=== PATIENT | male | born 1940 | race Caucasian/White ===

== ENCOUNTER 2021-01-09 07:46 | Outpatient (CLI) | payer MEDICARE, SELFPAY ==
--- NOTE | ~2021-01-09 | US_ITS ---
EXAMINATION: US abdomen complete DATE: 01/09/2021 08:38 INDICATION: Cirrhosis of the liver with portal venous hypertension. TECHNIQUE: Multiple grayscale and Doppler ultrasound images of the abdomen were obtained. COMPARISON: Ultrasound 11/04/2018, CT abdomen and pelvis 11/30/2018 FINDINGS: The visualized portions of the head of the pancreas are normal. The liver demonstrates coar sened echotexture and surface nodularity, consistent with cirrhosis. There is normal flow in main por lisa vein. The gallbladder is absent. The common duct is normal and measures 5 mm. The kidneys are nor mal in size. The spleen is normal in size. Abdominal aorta is normal in caliber. The inferior vena ca va is normal. IMPRESSION: 1. Cirrhosis of the liver. Reviewed, dictated and finalized at location B. IMPRESSION: 1. Cirrhosis of the liver.
== END 2021-01-09 07:47 | disposition home or self-care (01) ==
PROVIDERS: Visit Provider Internal Medicine Gastroenterology
DX: K76.6 Portal hypertension (principal); K31.89 Other diseases of stomach and duodenum; K22.2 Esophageal obstruction; K57.30 Diverticulosis of large intestine without perforation or abscess without bleeding; D69.59 Other secondary thrombocytopenia; K74.69 Other cirrhosis of liver; D69.8 Other specified hemorrhagic conditions
CPT/HCPCS: 76700

== ENCOUNTER → 2021-01-16 04:11 | Outpatient (CLI) | payer MEDICARE, SELFPAY ==
[2021-01-16 19:57] LABS: SARS-CoV-2 RNA PCR Negative
== END ==
PROVIDERS: Visit Provider Internal Medicine Gastroenterology
DX: Z01.812 Encounter for preprocedural laboratory examination (principal); Z20.822 Contact with and (suspected) exposure to COVID-19
CPT/HCPCS: C9803; U0003; U0005

== ENCOUNTER 2021-01-19 01:56 | Day surgery (SDC) | payer MEDICARE, SELFPAY ==
[2021-01-12 11:15] VITALS: BMI 28.6
--- NOTE | 2021-01-18 11:44 | WPDANESEPPF ---
Anes - Initial Pre Proc Eval Procedure: Operation Date: 01/19/21 09:00 Proposed Procedures p Esophagogastroduodenoscopy - Ernst Villanueva DO Date/Time: 01/18/21 11:44 Surgeon: Ernst Villanueva DO Pre Op Diagnosis: esophageal stricture Patient Data Age: 80 Gender: M Height: 1.85 m Weight: 98.6 kg Allergies Allergy/AdvReac Type Severity Reaction Status Date / Time No Known Allergies Allergy Unknown Unverified 01/19/21 07:35 Home Medications Medication Instructions Recorded Confirmed Type allopurinol 300 mg PO DAILY 01/12/21 01/19/21 History omeprazole 40 mg PO DAILY 01/12/21 01/19/21 History propranolol 20 mg PO DAILY 01/12/21 01/19/21 History Patient hx anesthesia problems: none Family hx anesthesia problems: none PMFSH Past Medical History Medical History (Updated 01/19/21 @ 08:31 by Ernst Villanueva DO) BPH (benign prostatic hyperplasia) Cirrhosis Esophageal varices GERD (gastroesophageal reflux disease) Gout Hx SBO Hypertension Lung nodule Portal hypertension Skin cancer Thrombocytopenia due to hypersplenism Surgical History Surgical History (Updated 01/19/21 @ 08:31 by Ernst Villanueva DO) H/O colonoscopy H/O esophagogastroduodenoscopy H/O hernia repair Hx laparoscopic cholecystectomy S/P TURP Family History Family History (Updated 11/30/16 @ 11:25 by DOCTOR UNKNOWN) Father Acute myocardial infarction Family history of irritable bowel syndrome Mother Family history of dementia Social History Social History Smoking status: Former smoker Smoking end date: 09/23/72 Alcohol intake: current Substance use type: does not use Living arrangements: with family Gender identity (if verbalized by the patient): Male Anes - Eval Final PreProcedure Day of Procedure 01/18/21 11:44 Patient weight: overweight Heart: regular rate and rhythm Lungs: clear to auscultation and normal air movement Airway: Mallampati scale class II Neurological: alert and oriented Last oral intake: >/= 8 hours ASA classification: III Emergent: no Anesthetic plan: proceed Anesthesia type and monitoring: general GIVS and standard monitoring Informed Consent: The patient's anesthetic plan and its attendant risks and benefits were discussed with the patient/family/POA. Questions were solicited and answers provided to the satisfaction of the patient/family/POA.
[2021-01-19 07:39] VITALS: BP 129/77; PULSE 62; RESP 18; TEMP 36.4; O2SAT 98
[2021-01-19] MEDS: LACTATED RINGERS 1,000 ML 150 ML IV CONT (07:49)
[2021-01-19 08:31] LABS: Hemoglobin 13.8 g/dL (14.0-18.0); Immature Platelet Fraction Pct 4.3 % (0.9-11.2); Mean Corpuscular HGB Conc 33.7 g/dl (32-36); Mean Corpuscular Hemoglobin 31.8 pg (26-34); Mean Corpuscular Volume 94.5 fl (80-100); Mean Platelet Volume 11.3 fl (7.4-10.4); Platelet Count Result 97 k/mm3 (150-375); Red Blood Count 4.34 M/mm3 (4.6-6.20); Red Cell Distribution Width 14.5 % (11.5-14.5); White Blood Count 6.9 K/mm3 (4.5-10.0)
--- NOTE | 2021-01-19 08:33 | WPDGICN ---
GI Consult Note Consult date/time: 01/19/21 08:33 Reason for visit is EGD. This very pleasant gentleman's here at the request the primary physician. Impression: He removed gentleman with history of cirrhosis. He has complicating factors: Esophageal varices and portal hypertension. 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 GERD. History duodenal ulcer disease. BPH. Gout. Skin cancer. Recommendation: EGD. History: This very pleasant gentleman history of cirrhosis. This most likely due to underlying cryptogenic factors. He has multiple complicating factors mentioned above. The patient has a history duodenal ulcer disease and cirrhosis. He is here for EGD to assess the need for any type of esophageal variceal ligation. General: very pleasant patient in no acute distress. HEENT: Head was normocephalic sclerae is clear mouth without masses neck was supple. Heart: Rate rhythm regular without S3 or S4. Lungs: CTA. Abdomen: Soft with no guarding or rigidity. Bowel sounds were active. Neurologic: Cranial nerves 2 through 12 intact. No focal defects. No clonus. Musculoskeletal system: Revealed no joint tenderness or swelling no muscle atrophy. Extremities: Reveal no significant edema. Skin: Warm and dry with normal turgor. Mental status: intact. Patient is alert and oriented. Review of Systems Review of Systems: All systems reviewed & are unremarkable except as noted in HPI and below PMFSH Past Medical History Medical History (Updated 01/19/21 @ 08:34 by Ernst Villanueva DO) BPH (benign prostatic hyperplasia) Cirrhosis Duodenal ulcer Esophageal varices GERD (gastroesophageal reflux disease) Gout Hx SBO Hypertension Lung nodule Portal hypertension Skin cancer Thrombocytopenia due to hypersplenism Surgical History Surgical History (Updated 01/19/21 @ 08:33 by Ernst Villanueva DO) H/O colonoscopy H/O esophagogastroduodenoscopy H/O hernia repair History of bowel resection Hx laparoscopic cholecystectomy Hx of appendectomy S/P TURP Family History Family History (Updated 11/30/16 @ 11:25 by DOCTOR UNKNOWN) Father Acute myocardial infarction Family history of irritable bowel syndrome Mother Family history of dementia Social History Social History Smoking status: Former smoker Smoking end date: 09/23/72 Alcohol intake: current Substance use type: does not use Living arrangements: with family Gender identity (if verbalized by the patient): Male Meds Home Medications and Allergies Home Medications Medication Instructions Recorded Confirmed Type allopurinol 300 mg PO DAILY 01/12/21 01/19/21 History omeprazole 40 mg PO DAILY 01/12/21 01/19/21 History propranolol 20 mg PO DAILY 01/12/21 01/19/21 History Allergies Allergy/AdvReac Type Severity Reaction Status Date / Time No Known Allergies Allergy Unknown Unverified 01/19/21 07:35 Vital Signs Vital Signs - 24 hr 01/19/21 07:39 Temperature 36.4 C L Pulse Rate 62 Respiratory Rate 18 Blood Pressure 129/77 Pulse Oximetry 98 Results Labs CBC & Chem 7: 01/19/21 08:22 01/19/21 08:21 Labs: Short CBC 01/19/21 Range/Units 08:22 WBC 6.9 (4.5-10.0) K/mm3 Hgb 13.8 L (14.0-18.0) g/dL Hct 41.0 L (42.0-52.0) % Plt Count 97 L (150-375) k/mm3
[2021-01-19 08:39] LABS: Alanine Aminotransferase 43 U/L (4-50); Albumin Level 2.8 g/dL (3.5-5.1); Alkaline Phosphatase 199 U/L (38-126); Anion Gap 5 mmol/L (8-16); Aspartate Amino Transferase 87 U/L (17-59); Bilirubin,Total 2.1 mg/dL (0.2-1.3); Blood Urea Nitrogen 12 mg/dL (9-20); Calcium 8.4 mg/dL (8.4-10.2); Carbon Dioxide 25 mmol/L (22-30); Chloride 111 mmol/L (98-107); Estimated CRCL calculation 85 ml/min; Estimated Glomerular Filt Rate > 60; Glucose 105 mg/dL (75-110); Potassium 3.9 mmol/L (3.4-5.0); Sodium 141 mmol/L (137-145)
[2021-01-19 08:41] LABS: INR 1.5; Prothrombin Time 18.3 Seconds (11.1-14.7)
[2021-01-19] MEDS: BENZOCAINE (*SP) 60 ML SPRAY CAN (HURRICAINE) 1 SPRAY MUCOUS MEM (08:47)
--- NOTE | 2021-01-19 08:57 | SUR.OPER ---
Handupband Lot: [id number] Exp: 2021-05-23
[2021-01-19 09:07] VITALS: BP 100/60; PULSE 71; RESP 17; O2SAT 100
[2021-01-19 09:17] VITALS: BP 105/59; PULSE 65; RESP 19; O2SAT 97
[2021-01-19 09:27] VITALS: BP 105/54; PULSE 63; RESP 22; O2SAT 99
[2021-01-24 15:31] LABS: Alpha Fetoprotein Tumor Marker 5.6 ng/mL (<6.1)
== END 2021-01-19 09:45 | disposition home or self-care (01) ==
PROVIDERS: Visit Provider Internal Medicine Gastroenterology
PROC: 0DJ08ZZ Inspection of Upper Intestinal Tract, Via Natural or Artificial Opening Endoscopic (ICD-10-PCS; CPT 43235; principal; 2021-01-19 09:00)
DX: K22.2 Esophageal obstruction (principal); K44.9 Diaphragmatic hernia without obstruction or gangrene; K76.6 Portal hypertension; K31.89 Other diseases of stomach and duodenum; I85.00 Esophageal varices without bleeding; Z86.010 Personal history of colon polyps; K74.69 Other cirrhosis of liver; K57.30 Diverticulosis of large intestine without perforation or abscess without bleeding; Z87.11 Personal history of peptic ulcer disease; D69.59 Other secondary thrombocytopenia; N40.0 Benign prostatic hyperplasia without lower urinary tract symptoms; Z85.828 Personal history of other malignant neoplasm of skin; Z87.442 Personal history of urinary calculi; R91.8 Other nonspecific abnormal finding of lung field; E53.8 Deficiency of other specified B group vitamins
CPT/HCPCS: 43244; 36415; 80048; 80076; 82105; 85027; 85055; 85610; J2704; J7120

== ENCOUNTER → 2021-02-13 03:27 | Outpatient (CLI) | payer MEDICARE, SELFPAY ==
[2021-02-15 12:49] LABS: SARS-CoV-2 RNA PCR Negative
== END ==
PROVIDERS: Visit Provider Internal Medicine Gastroenterology
DX: Z01.812 Encounter for preprocedural laboratory examination (principal); Z20.822 Contact with and (suspected) exposure to COVID-19
CPT/HCPCS: C9803; U0003; U0005

== ENCOUNTER 2021-02-16 00:27 | Day surgery (SDC) | payer MEDICARE, SELFPAY ==
[2021-02-07 10:54] VITALS: BMI 28.6
--- NOTE | 2021-02-16 08:27 | WPDHPUPDATE1 ---
History and Physical Update Update Date/Time: 02/16/21 08:27 History and Physical has been reviewed, including an updated exam of the patient. There are NO changes in the patient's condition. Risks, benefits, and alternatives have been discussed and questions answered. Patient agrees to proceed with procedure.
[2021-02-16 08:28] VITALS: BP 128/78; PULSE 70; RESP 18; TEMP 36.5; O2SAT 95; BMI 29.2
[2021-02-16] MEDS: LACTATED RINGERS 1,000 ML 150 ML IV CONT (08:35)
--- NOTE | 2021-02-16 08:56 | WPDANESEPPF ---
Anes - Initial Pre Proc Eval Procedure: Operation Date: 02/16/21 09:30 Proposed Procedures p Esophagogastroduodenoscopy - Ernst Villanueva DO Date/Time: 02/16/21 08:56 Surgeon: Ernst Villanueva DO Pre Op Diagnosis: esophageal varices Patient Data Age: 80 Gender: M Height: 6 ft 1 in Weight: 100.5 kg Last Vital Signs Temp 97.7 F 02/16/21 08:28 Pulse 70 02/16/21 08:28 Resp 18 02/16/21 08:28 BP 128/78 02/16/21 08:28 Pulse Ox 95 02/16/21 08:28 Allergies Allergy/AdvReac Type Severity Reaction Status Date / Time No Known Allergies Allergy Unknown Verified 02/16/21 08:27 Home Medications Medication Instructions Recorded Confirmed Type allopurinol 300 mg PO DAILY 01/12/21 02/16/21 History omeprazole 40 mg PO DAILY 01/12/21 02/16/21 History propranolol 20 mg PO DAILY 01/12/21 02/16/21 History Patient hx anesthesia problems: none Family hx anesthesia problems: none PMFSH Past Medical History Medical History (Updated 01/19/21 @ 09:04 by Ernst Villanueva DO) Adenomatous colon polyp BPH (benign prostatic hyperplasia) Cirrhosis Coagulopathy Diverticulitis Duodenal ulcer Esophageal stricture Esophageal varices GERD (gastroesophageal reflux disease) Gout [place] (hard of hearing) Hx SBO Hypertension Kidney stones Lung nodule Portal hypertension Portal hypertensive gastropathy Skin cancer Thrombocytopenia due to hypersplenism Vitamin B 12 deficiency Surgical History Surgical History (Updated 01/19/21 @ 08:33 by Ernst Villanueva DO) H/O colonoscopy H/O esophagogastroduodenoscopy H/O hernia repair History of bowel resection Hx laparoscopic cholecystectomy Hx of appendectomy S/P TURP Family History Family History (Updated 11/30/16 @ 11:25 by DOCTOR UNKNOWN) Father Acute myocardial infarction Family history of irritable bowel syndrome Mother Family history of dementia Social History Social History Smoking status: Former smoker Tobacco type: cigarettes Smoking end date: 09/23/72 Alcohol intake: never Substance use: never Substance use type: does not use Living arrangements: with family Gender identity (if verbalized by the patient): Male Spiritual care concerns: No Anes - Eval Final PreProcedure Day of Procedure 02/16/21 08:56 Patient weight: overweight Heart: regular rate and rhythm Lungs: clear to auscultation Airway: Mallampati scale class II Neurological: alert and oriented Last oral intake: >/= 8 hours ASA classification: III Emergent: no Anesthetic plan: proceed Anesthesia type and monitoring: general GIVS and standard monitoring Informed Consent: The patient's anesthetic plan and its attendant risks and benefits were discussed with the patient/family/POA. Questions were solicited and answers provided to the satisfaction of the patient/family/POA.
[2021-02-16 09:14] VITALS: BP 96/62; PULSE 71; RESP 23; O2SAT 95
[2021-02-16 09:24] VITALS: BP 104/62; PULSE 66; RESP 20; O2SAT 95
[2021-02-16 09:34] VITALS: BP 111/69; PULSE 63; RESP 20; O2SAT 96
== END 2021-02-16 09:54 | disposition home or self-care (01) ==
PROVIDERS: Visit Provider Internal Medicine Gastroenterology
PROC: 0DJ08ZZ Inspection of Upper Intestinal Tract, Via Natural or Artificial Opening Endoscopic (ICD-10-PCS; CPT 43235; principal; 2021-02-16 09:30)
DX: K74.60 Unspecified cirrhosis of liver (principal); I85.10 Secondary esophageal varices without bleeding; K76.6 Portal hypertension; K21.9 Gastro-esophageal reflux disease without esophagitis; K31.89 Other diseases of stomach and duodenum; K44.9 Diaphragmatic hernia without obstruction or gangrene; D69.59 Other secondary thrombocytopenia; D73.1 Hypersplenism; N40.0 Benign prostatic hyperplasia without lower urinary tract symptoms; M10.9 Gout, unspecified; Z87.11 Personal history of peptic ulcer disease; Z90.49 Acquired absence of other specified parts of digestive tract; Z87.891 Personal history of nicotine dependence
CPT/HCPCS: 43235; J2704; J7120

== ENCOUNTER 2021-05-02 11:02 | Emergency (ER) | payer MEDICARE, SELFPAY ==
--- NOTE | ~2021-05-02 | CT_ITS ---
EXAMINATION: CT abdomen pelvis w con DATE: 05/02/2021 14:38 INDICATION: Left lower quadrant abdominal pain. TECHNIQUE: Computed tomography (CT) of the abdomen and pelvis was performed with 100 mL Omnipaque 350 intravenous contrast. Automated exposure control and iterative reconstruction technique were employe d. The dose-length product was 1091.62 mGy-cm. COMPARISON: CT abdomen and pelvis 05/06/2018 FINDINGS: The visualized portions of the lung bases demonstrate mild atelectasis. No pleural effusion . The heart size is normal. There are coronary artery calcifications. No pericardial effusion. The li aleksander demonstrates surface nodularity, consistent with cirrhosis. There is a paraumbilical portacaval s benedict. There is mild splenomegaly. The gallbladder is absent. The pancreas, adrenal glands, and kidney s are normal. There is a supraumbilical ventral hernia containing fat. The prostate is mildly enlarge d. There are likely changes of transurethral resection of the prostate. There is prominent fat in the right inguinal canal that may be a hernia. There is diverticulosis of the colon without evidence of diverticulitis. There are no dilated loops of bowel. There is wall thickening of some loops of bowel, consistent with interstitial edema. There is edema of the intra-abdominal fat. The appendix is not v isualized. There is a moderate volume of ascites. There is mild periportal lymphadenopathy. There is severe lumbar spondylosis. IMPRESSION: 1. Cirrhosis of the liver with portal venous hypertension. 2. Moderate volume of ascites. 3. Mild periportal lymphadenopathy, likely reactive. 4. Supraumbilical ventral hernia containing fat. Reviewed, dictated and finalized at location A.
--- NOTE | ~2021-05-02 | US_ITS ---
EXAMINATION: US scrotum doppler DATE: 05/02/2021 11:50 INDICATION: Left testicle swelling. TECHNIQUE: Grayscale and Doppler ultrasound images of the testes were obtained. COMPARISON: None. FINDINGS: The right testis measures 3.3 x 2.8 x 2.2 cm. The left testis measures 3.0 x 2.5 x 2.0 cm. There is a 10 mm cyst in left testis. At the surface of the left testis, there is a 7 mm hypoechoic m ass, likely the appendix testis. There is normal vascular flow to both testes. The right epididymis i s normal with normal vascular flow. The left epididymis is enlarged with heterogeneous echogenicity a nd increased vascularity. There is a small loculated left hydrocele. There is diffuse skin thickening of the scrotum. IMPRESSION: 1. Left-sided epididymitis. 2. Small loculated left hydrocele. Reviewed, dictated and finalized at location A.
[2021-05-02 11:10] VITALS: BP 121/76; PULSE 78; RESP 16; TEMP 36.3; O2SAT 97
--- NOTE | 2021-05-02 13:15 | ED.ABDPAIN ---
HPI - Abdominal Pain General Chief Complaint: Urogenital-Male Stated Complaint: groin pain Time Seen by Provider: 05/02/21 13:06 Source: patient and RN notes reviewed Mode of arrival: ambulatory Limitations: no limitations History of Present Illness HPI narrative: 80 years old white male presents with left lower quadrant pain and left testicular pain and swelling started 3 days ago. Patient denies any trauma or any sexual activities. Patient denies any fever, chills, nausea, vomiting, urinary symptoms. Related Data Home Medications Medication Instructions Recorded Confirmed allopurinol 300 mg PO DAILY 01/12/21 02/16/21 omeprazole 40 mg PO DAILY 01/12/21 02/16/21 propranolol 20 mg PO DAILY 01/12/21 02/16/21 Allergies Allergy/AdvReac Type Severity Reaction Status Date / Time No Known Allergies Allergy Unknown Verified 02/16/21 08:27 Review of Systems Review of Systems: CONSTITUTIONAL: Denies fever, chills, or sweats. EYES: Denies visual changes, redness, or discharge. ENT: Denies rhinorrhea, congestion, sore throat, or otalgia. CARDIOVASCULAR: Denies chest pain, palpitations, or edema. RESPIRATORY: Denies cough or dyspnea. GASTROINTESTINAL: Denies abdominal pain, nausea, vomiting, or diarrhea. GENITOURINARY: Denies dysuria or hematuria. SKIN: Denies rash or itching. MUSCULOSKELETAL: Denies back pain, joint pain, or myalgia. NEUROLOGIC: Denies headache, numbness, or weakness. PSYCHIATRIC: Denies anxiety or depression. [facility] Past Medical History Medical History Adenomatous colon polyp BPH (benign prostatic hyperplasia) Cirrhosis Coagulopathy Diverticulitis Duodenal ulcer Esophageal stricture Esophageal varices GERD (gastroesophageal reflux disease) Gout [place] (hard of hearing) Hx SBO Hypertension Kidney stones Lung nodule Portal hypertension Portal hypertensive gastropathy Skin cancer Thrombocytopenia due to hypersplenism Vitamin B 12 deficiency Surgical History Surgical History H/O colonoscopy H/O esophagogastroduodenoscopy H/O hernia repair History of bowel resection Hx laparoscopic cholecystectomy Hx of appendectomy S/P TURP Family History Family History Father Acute myocardial infarction Family history of irritable bowel syndrome Mother Family history of dementia Social History Social History Smoking status: Former smoker Tobacco type: cigarettes Smoking end date: 09/23/72 Alcohol intake: never Substance use: never Substance use type: does not use Gender identity (if verbalized by the patient): Male Spiritual care concerns: No Exam Narrative: General appearance: Well-developed, well-nourished Skin: Normal color Head: Normocephalic, nontraumatic Eyes: Yellow discoloration of the conjunctival ENT: Oropharynx normal, ears normal, nose normal Neck: Supple, nontender Chest and respiratory: Airway patent, no respiratory distress, no accessory muscle use Heart: Regular rate/rhythm Abdomen: Soft, moderate tenderness left lower quadrant, no organomegaly, quiet bowel sounds Vascular: Normal peripheral pulses, normal capillary refill. Musculoskeletal: Normal range of motion, nontender back Neurologic: Alert and oriented ?3, RE[employer]ISH[employer]IST is normal as tested, no gross motor deficit Course Course Emergency Course: Stable Vital Signs Vital signs: Vital Signs Temperature 36.3 C L 05/02/21 11:10 Pulse Rate 78 05/02/21 11:10 Respiratory Rate 16 05/02/21 11:10 Blood Pressure 121/76 05/02/21
[2021-05-02 13:37] VITALS: BP 124/66; PULSE 82; RESP 18; O2SAT 100
[2021-05-02] MEDS: SODIUM CHLORIDE 0.9% IV 1,000 ML 999 ML IV CONT (13:39)
[2021-05-02 13:51] LABS: Basophils Percent Auto 0.4 % (0.2-1.2); Eosinophils Absolute Auto 0.2 K/mm3 (0-0.3); Eosinophils Percent Auto 2.4 % (0-4.4); Hematocrit 36.3 % (42.0-52.0); Hemoglobin 12.2 g/dL (14.0-18.0); Immature Granulocyte Absolute 0.03 K/mm3 (0.00-0.031); Immature Granulocyte Percent A 0.4 % (0-0.5); Immature Platelet Fraction Pct 4.1 % (0.9-11.2); Lymphocytes Absolute Auto 1.99 K/mm3 (0.9-3.2); Lymphocytes Percent Auto 24.2 % (18.3-44.2); Mean Corpuscular HGB Conc 33.6 g/dl (32-36); Mean Corpuscular Hemoglobin 32.4 pg (26-34); Mean Corpuscular Volume 96.5 fl (80-100); Mean Platelet Volume 10.7 fl (7.4-10.4); Monocytes Absolute Auto 1.1 K/mm3 (0.1-0.6); Monocytes Percent Auto 13.7 % (2.6-8.5); Neutrophils Absolute Auto 4.9 K/mm3 (1.3-6.7); Neutrophils Percent Auto 58.9 % (45.5-73.1); Platelet Count Result 116 k/mm3 (150-375); Red Blood Count 3.76 M/mm3 (4.6-6.20); Red Cell Distribution Width 14.3 % (11.5-14.5); White Blood Count 8.2 K/mm3 (4.5-10.0)
[2021-05-02 13:55] LABS: Add Urine Microscopic? YES; Appearance Urine Clear (Clear); Bilirubin Urine Negative (Negative); Blood Urine Negative (Negative); Color Urine Amber (Yellow); Glucose Urine UA Negative (Negative); Ketones Urine Negative (Negative); Leukocyte Esterase Ur 1+ LEU/UL (Negative); Nitrate Urine Negative (Negative); Protein Urine Negative (Negative); RBC Urine 0-2 /hpf (0-2); Specific Grav Ur 1.014 (1.001-1.035); WBC Urine 21-30 /hpf
[2021-05-02 14:01] LABS: Alanine Aminotransferase 42 U/L (4-50); Albumin Level 2.7 g/dL (3.5-5.1); Alkaline Phosphatase 120 U/L (38-126); Anion Gap 6 mmol/L (8-16); Aspartate Amino Transferase 82 U/L (17-59); Bilirubin,Total 2.3 mg/dL (0.2-1.3); Blood Urea Nitrogen 9 mg/dL (9-20); Calcium 8.3 mg/dL (8.4-10.2); Carbon Dioxide 24 mmol/L (22-30); Chloride 103 mmol/L (98-107); Estimated CRCL calculation 75 ml/min; Estimated Glomerular Filt Rate > 60; Glucose 96 mg/dL (65-110); Lipase 83 U/L (23-300); Potassium 3.7 mmol/L (3.4-5.0); Sodium 133 mmol/L (137-145)
[2021-05-02 16:40] VITALS: BP 128/76; PULSE 85; RESP 18; O2SAT 100
== END 2021-05-02 16:43 | disposition home or self-care (01) ==
PROVIDERS: Emergency Provider Emergency Medicine
DX: N45.1 Epididymitis (principal); N39.0 Urinary tract infection, site not specified; K74.60 Unspecified cirrhosis of liver; R18.8 Other ascites; K76.6 Portal hypertension; I10 Essential (primary) hypertension; Z87.891 Personal history of nicotine dependence
CPT/HCPCS: 36415; 74177; 76870; 80053; 81001; 83690; 85025; 85055; 87077; 87086; 87088; 87186; 93976; 96360; 99284; J7030; Q9967

== ENCOUNTER 2021-06-08 00:56 | Day surgery (SDC) | payer MEDICARE, SELFPAY ==
[2021-05-31 13:33] VITALS: BMI 28.8
--- NOTE | 2021-06-07 19:34 | P.HP_ITS ---
History of Present Illness History of Present Illness Consent: Risks, benefits, and alternatives have been discussed and questions answered. Patient agrees to proceed with procedure. Chief complaint: esophageal varices Narrative: Minh Nielsen is a 80 year old male with cirrhosis and varices, here for assessment and possible treatment of varices Review of Systems Review of Systems: All systems reviewed & are unremarkable except as noted in HPI and below PMFSH Past Medical History Medical History Adenomatous colon polyp BPH (benign prostatic hyperplasia) Cirrhosis Coagulopathy Diverticulitis Duodenal ulcer Esophageal stricture Esophageal varices GERD (gastroesophageal reflux disease) Gout [place] (hard of hearing) Hx SBO Hypertension Kidney stones Lung nodule Portal hypertension Portal hypertensive gastropathy Skin cancer Thrombocytopenia due to hypersplenism Vitamin B 12 deficiency Surgical History Surgical History H/O colonoscopy H/O esophagogastroduodenoscopy H/O hernia repair History of bowel resection Hx laparoscopic cholecystectomy Hx of appendectomy S/P TURP Family History Family History Father Acute myocardial infarction Family history of irritable bowel syndrome Mother Family history of dementia Social History Social History Smoking status: Former smoker Tobacco type: cigarettes Smoking end date: 09/23/72 Alcohol intake: never Substance use: never Substance use type: does not use Gender identity (if verbalized by the patient): Male Spiritual care concerns: No Meds Home Medications and Allergies Home Medications Medication Instructions Recorded Confirmed Type allopurinol 300 mg PO DAILY 01/12/21 05/31/21 History omeprazole 40 mg PO DAILY 01/12/21 05/31/21 History propranolol 20 mg PO DAILY 01/12/21 05/31/21 History levofloxacin 500 mg PO DAILY #10 tablet 05/02/21 05/31/21 Rx spironolactone 50 mg tablet 50 mg PO BID #60 tablet 05/23/21 05/31/21 Rx Allergies Allergy/AdvReac Type Severity Reaction Status Date / Time No Known Allergies Allergy Unknown Verified 06/08/21 09:56 Exam Const: General: alert Orientation/consciousness: patient oriented x3 Resp: Auscultation: clear to auscultation bilaterally Cardio: Rhythm: regular rhythm GI: GI Palp: Yes Soft to palpation and No Tenderness to palpation present (GI) Neuro: General: patient oriented x3 Assessment and Plan Assessment and plan (1) Esophageal varices: Code(s): I85.00 - Esophageal varices without bleeding Status: Acute Assessment and Plan: EGD with possible biopsy or dilatation or cautery or banding of varices.
--- NOTE | 2021-06-08 08:28 | WPDANESEPPF ---
Anes - Initial Pre Proc Eval Procedure: Operation Date: 06/08/21 11:00 Proposed Procedures p Esophagogastroduodenoscopy - Remington Elam MD Date/Time: 06/08/21 08:28 Surgeon: Remington Elam MD Pre Op Diagnosis: esophageal varices Patient Data Age: 80 Gender: M Height: 1.85 m Weight: 99 kg Allergies Allergy/AdvReac Type Severity Reaction Status Date / Time No Known Allergies Allergy Unknown Verified 05/31/21 13:30 Home Medications Medication Instructions Recorded Confirmed Type allopurinol 300 mg PO DAILY 01/12/21 05/31/21 History omeprazole 40 mg PO DAILY 01/12/21 05/31/21 History propranolol 20 mg PO DAILY 01/12/21 05/31/21 History levofloxacin 500 mg PO DAILY #10 tablet 05/02/21 05/31/21 Rx spironolactone 50 mg tablet 50 mg PO BID #60 tablet 05/23/21 05/31/21 Rx Patient hx anesthesia problems: none Family hx anesthesia problems: none PMFSH Past Medical History Medical History Adenomatous colon polyp BPH (benign prostatic hyperplasia) Cirrhosis Coagulopathy Diverticulitis Duodenal ulcer Esophageal stricture Esophageal varices GERD (gastroesophageal reflux disease) Gout [place] (hard of hearing) Hx SBO Hypertension Kidney stones Lung nodule Portal hypertension Portal hypertensive gastropathy Skin cancer Thrombocytopenia due to hypersplenism Vitamin B 12 deficiency Surgical History Surgical History H/O colonoscopy H/O esophagogastroduodenoscopy H/O hernia repair History of bowel resection Hx laparoscopic cholecystectomy Hx of appendectomy S/P TURP Family History Family History Father Acute myocardial infarction Family history of irritable bowel syndrome Mother Family history of dementia Social History Social History Smoking status: Former smoker Tobacco type: cigarettes Smoking end date: 09/23/72 Alcohol intake: never Substance use: never Substance use type: does not use Gender identity (if verbalized by the patient): Male Spiritual care concerns: No Anes - Eval Final PreProcedure Day of Procedure 06/08/21 08:28 Patient weight: overweight Heart: regular rate and rhythm Lungs: clear to auscultation and normal air movement Airway: Mallampati scale class II Neurological: alert and oriented Last oral intake: >/= 8 hours ASA classification: IV Emergent: no Anesthetic plan: proceed Anesthesia type and monitoring: general GIVS Informed Consent: The patient's anesthetic plan and its attendant risks and benefits were discussed with the patient/family/POA. Questions were solicited and answers provided to the satisfaction of the patient/family/POA.
[2021-06-08 09:57] VITALS: BP 128/63; PULSE 64; RESP 18; TEMP 36.7; O2SAT 100; BMI 29.8
[2021-06-08] MEDS: LACTATED RINGERS 1,000 ML 150 ML IV CONT (10:08)
--- NOTE | 2021-06-08 10:56 | SUR.OPER ---
Speedband Lot: [id number] Exp: 2022-04-14
[2021-06-08 10:57] VITALS: BP 86/54; PULSE 70; RESP 19; O2SAT 98
[2021-06-08 11:07] VITALS: BP 94/58; PULSE 68; RESP 24; O2SAT 98
[2021-06-08 11:17] VITALS: BP 101/63; PULSE 62; RESP 17; O2SAT 98
== END 2021-06-08 11:45 | disposition home or self-care (01) ==
PROVIDERS: Visit Provider Internal Medicine Gastroenterology
PROC: 0DJ08ZZ Inspection of Upper Intestinal Tract, Via Natural or Artificial Opening Endoscopic (ICD-10-PCS; CPT 43235; principal; 2021-06-08 11:00)
DX: I85.00 Esophageal varices without bleeding (principal); K29.70 Gastritis, unspecified, without bleeding; K74.60 Unspecified cirrhosis of liver; K21.9 Gastro-esophageal reflux disease without esophagitis; I10 Essential (primary) hypertension; K76.6 Portal hypertension; K31.89 Other diseases of stomach and duodenum; D73.1 Hypersplenism; E53.8 Deficiency of other specified B group vitamins; M10.9 Gout, unspecified; N40.0 Benign prostatic hyperplasia without lower urinary tract symptoms; Z87.891 Personal history of nicotine dependence
CPT/HCPCS: 43244; J2001; J2370; J2704; J7120

== ENCOUNTER 2021-11-16 00:22 | Day surgery (SDC) | payer MEDICARE, SELFPAY ==
[2021-11-02 15:18] VITALS: BMI 28.5
--- NOTE | 2021-11-15 10:59 | SUR.PREOP ---
11/15/21 1050 spoke with patient via the phone. called patient to move his time up. Patient is going to call his Son who is the one bringing him. He thought he would be able to arrive at 10 tomorrow morning. Patient mentioned that he is having some swelling and harder time breathing and that he would address it with Dr. Gillis in the morning. I did tell the patient that Dr. Gillis would probably not address those issues since he deals with the stomach and colon and that he needs to contact his primary doctor to address these concerns. Patient stated [place] at [place] today and that his primary doctor was at the [place] in [place]. I did re-enforce to contact his primary or go the the nearest ED if it got worse.
--- NOTE | 2021-11-15 18:59 | PM.HPGS ---
History of Present Illness History of Present Illness Consent: Risks, benefits, and alternatives have been discussed and questions answered. Patient agrees to proceed with procedure. Chief complaint: esophageal varices Narrative: Minh Nielsen is a 80 year old male with cirrhosis and a history of esophaggeal varices, previously banded by Dr. Villanueva (4 bands last December) and one by me 4 months ago. Lately he has been becoming short of breath. He has had a great deal swelling in his legs and also in his abdomen. He states that he has an appointment for his annual checkup with his doctor at the [facility] but later admitted that he never in fact has made an appointment Review of Systems Review of Systems: All systems reviewed & are unremarkable except as noted in HPI and below PMFSH Past Medical History Medical History Adenomatous colon polyp BPH (benign prostatic hyperplasia) Cirrhosis Coagulopathy Diverticulitis Duodenal ulcer Esophageal stricture Esophageal varices GERD (gastroesophageal reflux disease) Gout [place] (hard of hearing) Hx SBO Hypertension Kidney stones Lung nodule Portal hypertension Portal hypertensive gastropathy Skin cancer Thrombocytopenia due to hypersplenism Vitamin B 12 deficiency Surgical History Surgical History H/O colonoscopy H/O esophagogastroduodenoscopy H/O hernia repair History of bowel resection Hx laparoscopic cholecystectomy Hx of appendectomy S/P TURP Family History Family History Father Acute myocardial infarction Family history of irritable bowel syndrome Mother Family history of dementia Social History Social History Smoking status: Former smoker Tobacco type: cigarettes Smoking end date: 09/23/72 Alcohol intake: never Substance use: never Substance use type: does not use Living arrangements: with family Gender identity (if verbalized by the patient): Male Spiritual care concerns: No Meds Home Medications and Allergies Home Medications Medication Instructions Recorded Confirmed Type allopurinol 300 mg PO DAILY 01/12/21 11/02/21 History omeprazole 40 mg PO DAILY 01/12/21 11/02/21 History propranolol 20 mg PO DAILY 01/12/21 11/02/21 History spironolactone 50 mg tablet 50 mg PO BID #60 tablet 05/23/21 11/02/21 Rx Allergies Allergy/AdvReac Type Severity Reaction Status Date / Time No Known Allergies Allergy Unknown Verified 11/16/21 10:17 Exam Const: General: alert Orientation/consciousness: patient oriented x3 Resp: Auscultation: clear to auscultation bilaterally Cardio: Rhythm: regular rhythm GI: GI Palp: Yes Soft to palpation and No Tenderness to palpation present (GI) Neuro: General: patient oriented x3 Assessment and Plan Assessment and plan (1) Esophageal varices: Code(s): I85.00 - Esophageal varices without bleeding Status: Acute Assessment and Plan: EGD with possible biopsy or dilatation or cautery.
[2021-11-16 10:18] VITALS: BP 111/74; PULSE 81; RESP 19; TEMP 36.5; O2SAT 100
[2021-11-16] MEDS: LACTATED RINGERS 1,000 ML 150 ML IV CONT (10:31)
--- NOTE | 2021-11-16 10:35 | WPDANESEPPF ---
Anes - Initial Pre Proc Eval Procedure: Operation Date: 11/16/21 11:30 Proposed Procedures p Esophagogastroduodenoscopy - Remington Elam MD Date/Time: 11/16/21 10:35 Surgeon: Remington Elam MD Pre Op Diagnosis: esophageal varices Patient Data Age: 80 Gender: M Height: 1.85 m Weight: 100.4 kg Last Vital Signs Temp 36.5 C 11/16/21 10:18 Pulse 81 11/16/21 10:18 Resp 19 11/16/21 10:18 BP 111/74 11/16/21 10:18 Pulse Ox 100 11/16/21 10:18 Allergies Allergy/AdvReac Type Severity Reaction Status Date / Time No Known Allergies Allergy Unknown Verified 11/16/21 10:17 Home Medications Medication Instructions Recorded Confirmed Type allopurinol 300 mg PO DAILY 01/12/21 11/02/21 History omeprazole 40 mg PO DAILY 01/12/21 11/02/21 History propranolol 20 mg PO DAILY 01/12/21 11/02/21 History spironolactone 50 mg tablet 50 mg PO BID #60 tablet 05/23/21 11/02/21 Rx Patient hx anesthesia problems: none Family hx anesthesia problems: none Results Review: All pre-operative results and documents have been reviewed as part of the pre-operative evaluation. [facility] Past Medical History Medical History Adenomatous colon polyp BPH (benign prostatic hyperplasia) Cirrhosis Coagulopathy Diverticulitis Duodenal ulcer Esophageal stricture Esophageal varices GERD (gastroesophageal reflux disease) Gout [place] (hard of hearing) Hx SBO Hypertension Kidney stones Lung nodule Portal hypertension Portal hypertensive gastropathy Skin cancer Thrombocytopenia due to hypersplenism Vitamin B 12 deficiency Surgical History Surgical History H/O colonoscopy H/O esophagogastroduodenoscopy H/O hernia repair History of bowel resection Hx laparoscopic cholecystectomy Hx of appendectomy S/P TURP Family History Family History Father Acute myocardial infarction Family history of irritable bowel syndrome Mother Family history of dementia Social History Social History Smoking status: Former smoker Tobacco type: cigarettes Smoking end date: 09/23/72 Alcohol intake: never Substance use: never Substance use type: does not use Living arrangements: with family Gender identity (if verbalized by the patient): Male Spiritual care concerns: No Anes - Eval Final PreProcedure Day of Procedure 11/16/21 10:35 Patient weight: overweight Heart: regular rate and rhythm Lungs: decreased breath sounds Airway: Mallampati scale class II Neurological: other (alert) Last oral intake: >/= 8 hours ASA classification: IV Emergent: no Anesthetic plan: proceed Anesthesia type and monitoring: general GIVS and standard monitoring Results Review: All pre-operative results and documents have been reviewed as part of the pre-operative evaluation. Informed Consent: The patient's anesthetic plan and its attendant risks and benefits were discussed with the patient/family/POA. Questions were solicited and answers provided to the satisfaction of the patient/family/POA.
[2021-11-16] MEDS: BENZOCAINE (*SP) 60 ML SPRAY CAN (HURRICAINE) 1 SPRAY MUCOUS MEM (11:37)
[2021-11-16 11:44] VITALS: BP 93/60; PULSE 73; RESP 18; O2SAT 97
[2021-11-16 11:54] VITALS: BP 102/65; PULSE 70; RESP 17; O2SAT 99
[2021-11-16 12:04] VITALS: BP 119/71; PULSE 68; RESP 16; O2SAT 100
== END 2021-11-16 12:12 | disposition home or self-care (01) ==
PROVIDERS: Visit Provider Internal Medicine Gastroenterology
PROC: 0DJ08ZZ Inspection of Upper Intestinal Tract, Via Natural or Artificial Opening Endoscopic (ICD-10-PCS; CPT 43235; principal; 2021-11-16 11:30)
DX: I85.00 Esophageal varices without bleeding (principal); K22.2 Esophageal obstruction; K44.9 Diaphragmatic hernia without obstruction or gangrene; K74.60 Unspecified cirrhosis of liver; K21.9 Gastro-esophageal reflux disease without esophagitis; I10 Essential (primary) hypertension; K76.6 Portal hypertension; K31.89 Other diseases of stomach and duodenum; E53.8 Deficiency of other specified B group vitamins; N40.0 Benign prostatic hyperplasia without lower urinary tract symptoms; M10.9 Gout, unspecified; Z87.891 Personal history of nicotine dependence
CPT/HCPCS: 43235; J2704; J7120

== ENCOUNTER 2021-12-12 15:10 | Inpatient (IN) | payer MEDICARE, OTHER, SELFPAY ==
[2021-12-12] VITALS (7 sets, daily range): BP systolic 96–103; BP diastolic 54–70; PULSE 64–78; RESP 16–18; TEMP 36.1–36.5; O2SAT 95–100; BMI 28.9
--- NOTE | ~2021-12-12 | US_ITS ---
US right upper quadrant INDICATION: Portal hypertension. PROCEDURE: Realtime right upper abdominal ultrasound. COMPARISON: No prior studies for comparison. FINDINGS: The pancreas is not well visualized, although grossly unremarkable. There is cirrhosis of the liver with moderate ascites. There is normal directional flow in the portal vein, although it i s difficult to visualized. Gallbladder is surgically absent. Common bile duct measures 3 mm. No sonographic Madrid's sign. IMPRESSION: 1: Cirrhosis of the liver with moderate ascites. Limited flow in the portal vein, although there is d irectional flow. 2: Cirrhosis of the liver. Reviewed, dictated and finalized at location A. IMPRESSION: 1: Cirrhosis of the liver with moderate ascites. Limited flow in the portal vei n, although there is directional flow. 2: Cirrhosis of the liver.
--- NOTE | ~2021-12-12 | US_ITS ---
EXAMINATION:US venous doppler LE BI INDICATION:Lower extremity edema TECHNIQUE: Multiple grayscale, color flow and Doppler images of the right and left lower extremity de ep venous systems were obtained and reviewed. COMPARISON:No prior studies for comparison. FINDINGS: The common femoral, superficial femoral and popliteal veins demonstrate normal respiratory variation, augmentation and compressibility. Color flow is also seen within the posterior tibial, pe roneal, greater saphenous and profunda veins. IMPRESSION: 1: No lower extremity deep venous thrombosis. Reviewed, dictated and finalized at location A.
--- NOTE | ~2021-12-12 | XR_ITS ---
EXAMINATION: XR chest 1V portable DATE: 12/19/2021 05:54 INDICATION: Pneumonia TECHNIQUE: frontal view of the chest was obtained. COMPARISON: Chest radiograph dated 12/12/21 FINDINGS: Opacities in the bilateral lower lung zones with blunting at the costophrenic angles. No pneumothorax . Small calcified nodules in the left midlung zone. The cardiomediastinal silhouette is normal. IMPRESSION: 1. Small bilateral pleural effusions with associated atelectasis and/or pneumonia. Reviewed, dictated and finalized at location A. IMPRESSION: 1. Small bilateral pleural effusions with associated atelectasis and/or pneumon ia.
--- NOTE | ~2021-12-12 | US_ITS ---
EXAMINATION: US paracentesis abd w/image DATE: 12/17/2021 13:37 INDICATION: Ascites and shortness of breath TECHNIQUE: The procedure and its risks and benefits were discussed with the patient. Potential risks discussed included bleeding and infection. The skin was prepped and draped in sterile fashion. 1% lid ocaine was used for local anesthesia. Under ultrasound guidance, a 5 Fr catheter with trochar was adv anced into the ascites in the left lower quadrant. Fluid was aspirated into vacuum bottles. The silverio ter was removed, and a dressing was applied. There were no immediate complications. FINDINGS: Ultrasound images demonstrate ascites and the catheter within the fluid. IMPRESSION: 1. Successful ultrasound-guided paracentesis yielding 1475 mL of cloudy yellowish fluid. Reviewed, dictated and finalized at location A. IMPRESSION: 1. Successful ultrasound-guided paracentesis yielding 1475 mL of cloudy yellow romeo fluid.
--- NOTE | ~2021-12-12 | CT_ITS ---
EXAMINATION: CT abdomen pelvis w con EXAM DATE: 12/12/2021 17:25 INDICATION: liver cirrhosis, elevated bili, elevated lactic ac. TECHNIQUE: Spiral CT of the abdomen and pelvis was performed following intravenous injection of 100 m L Omnipaque 350. Axial, coronal and sagittal images of the abdomen and pelvis were reviewed. The do se-length product (DLP) for this examination was 1161.73 mGy-cm. The exposure was tailored according to patient size (auto mA exposure control), and iterative reconstruction (ASIR) was used as addition al dose reduction technique. Comparison is made to prior examination from 05/02/2021. FINDINGS: The liver is atrophic with nodular contour, cirrhosis. There is moderate 2 large amount of ascites. Portal hypertension with multiple mesenteric varices and periumbilical varices. There is sup raumbilical fat-containing hernia containing omental fat and varices. No mesenteric arterial or venou s thrombosis demonstrated. No focal liver mass. Adrenal glands and pancreas are unremarkable. Gallbla dder not identified, patient likely has had cholecystectomy. Portal and splenic veins are patent. K idneys enhance symmetrically. There is no hydronephrosis. The uterus is not identified and has lik james been surgically resected. Prostatectomy or TURP. The bladder is unremarkable. There is no retro peritoneal or pelvic lymphadenopathy. There are no findings to suggest appendicitis. The stomach and small bowel are unremarkable. There is expected amount of colonic stool. There is moderate scattered colonic diverticulosis. Sensitivity for diverticulitis limited from the ascites and mesenteric fat stranding. No free intraperitoneal gas . The heart is normal in size. There are no pericardial or pleural effusions. There is right lower lobe endobronchial debris and air space disease most consistent with subsegmenta l pneumonia. Moderate to severe thoracolumbar spondylosis. There are no osteoblastic or osteolytic le sions identified. There is ankylosis of the sacroiliac joints. IMPRESSION: 1. Right lower lobe posterior segmental endobronchial debris and opacity most likely subsegmental pn eumonia. 2. Cirrhosis, portal hypertension. 3. Moderate to large amount of ascites. 4. Moderate-sized supra umbilical hernia containing omentum and varicosities. 5. Moderate scattered colonic diverticulosis. Reviewed, dictated and finalized at location G. IMPRESSION: 1. Right lower lobe posterior segmental endobronchial debris and opacity most likely subsegmental pneumonia. 2. Cirrhosis, portal hypertension. 3. Moderate to large amount of ascites. 4. Moderate-sized supra umbilical hernia containing omentum and varicosities. 5. Moderate scattered colonic diverticulosis.
--- NOTE | ~2021-12-12 | US_ITS ---
EXAMINATION: US paracentesis abd w/image DATE: 12/13/2021 11:51 INDICATION: Ascites. TECHNIQUE: The procedure and its risks and benefits were discussed with the patient. Potential risks discussed included bleeding and infection. The skin was prepped and draped in sterile fashion. 1% lid ocaine was used for local anesthesia. Under ultrasound guidance, a 5 Fr catheter with trochar was adv anced into the ascites in the right lower quadrant. Fluid was aspirated into vacuum bottles. The cath eter was removed, and a dressing was applied. There were no immediate complications. FINDINGS: Ultrasound images demonstrate ascites and the catheter within the fluid. IMPRESSION: 1. Successful ultrasound-guided paracentesis yielding 3100 mL of cloudy yellow fluid. Reviewed, dictated and finalized at location A.
--- NOTE | ~2021-12-12 | XR_ITS ---
EXAMINATION: XR chest 2V EXAM DATE: 12/12/2021 16:42 INDICATION: Dyspnea. TECHNIQUE: Frontal and lateral projections of the chest obtained and reviewed. Comparison is made to prior examination from 11/30/18. FINDINGS: Small amount of bibasilar subsegmental atelectasis. Left midlung zone granuloma unchanged. The lungs are otherwise clear. There are no pleural effusions. The cardiomediastinal silhouette is within normal limits. There is no pneumothorax suspected. The bones and soft tissues are unremarka ble. IMPRESSION: Small amount of bibasilar linear opacity likely subsegmental atelectasis. Reviewed, dictated and finalized at location G. IMPRESSION: Small amount of bibasilar linear opacity likely subsegmental atelec tasis.
--- NOTE | 2021-12-12 15:55 | ECG_ITS ---
Measurements Intervals [place] Rate: 64 P: 72 DE: 160 QRS: 12 QRSD: 90 T: 34 QT: 433 QTc: 449 Interpretive Statements SINUS RHYTHM LOW QRS VOLTAGE IN PRECORDIAL LEADS [QRS DEFLECTION < 1.0 mV IN CHEST LEADS] POSSIBLE ANTERIOR MYOCARDIAL INFARCTION , PROBABLY OLD [30 ms Q WAVE IN V3/V4, OR R < 0.2 mV IN V4] NONSPECIFIC T-WAVE ABNORMALITY ABNORMAL ECG Electronically Signed On 12-13-2021 13:51:32 CDT by Gil Foley M.D.
--- NOTE | 2021-12-12 15:55 | ED.GENADULT ---
HPI - General Adult General Chief complaint: Unspecified Stated complaint: PCP referral Time Seen by Provider: 12/12/21 15:41 History of Present Illness HPI narrative: 81 y/o male presents to the ER for general decline over the past several months. He has lung disease related to asbestos and he has liver cirrhosis. His son says that they took him for his visit at the [facility] yesterday and the provider felt that he looked poorly compared to the last time they saw him 6 months ago. They recommended that he go to the ER to get evaluated and admitted to the hospital. He had appt with his liver docter, Dr. Elam, today so he wanted to wait and get seen by him first. Dr. Elam also saw him and felt like he looked worse than when he saw him for his endoscopy a month ago. He has increased swelling in his legs. He felt that he looked a little jaundice so he agreed that patient should be evaluated in the ER. The son is reporting that he has had worsening problems with shortness of breath with exertion and is having a harder time getting around. Pt denies having any pain symptoms. No n/v/d. Son reports that he has had blood in his stools off and on over the past few weeks. Related Data Home Medications Medication Instructions Recorded Confirmed allopurinol 300 mg PO DAILY 01/12/21 12/12/21 omeprazole 40 mg PO DAILY 01/12/21 12/12/21 propranolol 20 mg PO DAILY 01/12/21 12/12/21 Allergies Allergy/AdvReac Type Severity Reaction Status Date / Time No Known Allergies Allergy Unknown Verified 12/12/21 13:26 Review of Systems Constitutional: Constitutional: Reports lethargy and Reports weakness Eyes: Eyes: Denies blurry vision ENT: Denies dizziness, Denies epistaxis and Denies neck pain Cardiovascular: Cardiovascular: Denies chest pain and Reports leg edema Respiratory: Respiratory: Denies chest congestion, Denies cough, Reports hemoptysis and Reports dyspnea Gastrointestinal: Gastrointestinal: Reports as per HPI, Denies abdominal pain, Denies change in bowel habits and Denies change in stool character Genitourinary: Genitourinary: Reports no additional male genitourinary complaints Musculoskeletal: Musculoskeletal: Reports no additional musculoskeletal complaints Integumentary/Breasts: Skin/Breast: Reports skin swelling Neurologic: Denies vertigo, Denies dizziness, Denies frequent falls and Denies focal weakness Psychiatric: Psychiatric: Reports no additional psychiatric complaints Endocrine: Endocrine: Reports no additional endocrine complaints Hematologic/Lymphatic: Hematologic/Lymphatic: Reports easy bleeding PMFSH Past Medical History Medical History Adenomatous colon polyp BPH (benign prostatic hyperplasia) Cirrhosis Coagulopathy Diverticulitis Duodenal ulcer Esophageal stricture Esophageal varices GERD (gastroesophageal reflux disease) Gout [place] (hard of hearing) Hx SBO Hypertension Kidney stones Lung nodule Portal hypertension Portal hypertensive gastropathy Skin cancer Thrombocytopenia due to hypersplenism Vitamin B 12 deficiency Surgical History Surgical History H/O colonoscopy H/O esophagogastroduodenoscopy H/O hernia repair History of bowel resection Hx laparoscopic cholecystectomy Hx of appendectomy S/P TURP Family History Family History Father Acute myocardial infarction Family history of irritable bowel syndrome Mother Family history of dementia Social History Social History Smoking status: Former smoker Tobacco type: cigarettes Smoking end date: 09/23/72 Alcohol intake: never Substance use: never Substance use type: does not use Gender identity (if verbalized by the patient): Male Spiritual care concerns: No Exam Const: General: cooperati
[2021-12-12 16:50] LABS: INR 1.8; Prothrombin Time 20.2 Seconds (11.1-14.7)
[2021-12-12 16:51] LABS: Partial Thromboplastin Time 43.9 SECONDS (22.3-36.8)
[2021-12-12 16:53] LABS: Basophils Percent Auto 0.3 % (0.2-1.2); Eosinophils Absolute Auto 0.1 K/mm3 (0-0.3); Hematocrit 37.4 % (42.0-52.0); Hemoglobin 12.8 g/dL (14.0-18.0); Immature Granulocyte Absolute 0.13 K/mm3 (0.00-0.031); Lymphocytes Absolute Auto 1.71 K/mm3 (0.9-3.2); Lymphocytes Percent Auto 13.7 % (18.3-44.2); Mean Corpuscular HGB Conc 34.2 g/dl (32-36); Mean Corpuscular Hemoglobin 34.1 pg (26-34); Mean Corpuscular Volume 99.7 fl (80-100); Mean Platelet Volume 10.5 fl (7.4-10.4); Monocytes Absolute Auto 1.5 K/mm3 (0.1-0.6); Monocytes Percent Auto 11.9 % (2.6-8.5); Neutrophils Percent Auto 72.1 % (45.5-73.1); Platelet Count Result 153 k/mm3 (150-375); Red Blood Count 3.75 M/mm3 (4.6-6.20); Red Cell Distribution Width 16.4 % (11.5-14.5); White Blood Count 12.5 K/mm3 (4.5-10.0)
[2021-12-12 16:54] LABS: Alanine Aminotransferase 46 U/L (4-50); Albumin Level 2.4 g/dL (3.5-5.1); Alkaline Phosphatase 158 U/L (38-126); Anion Gap 7 mmol/L (8-16); Aspartate Amino Transferase 78 U/L (17-59); Bilirubin,Total 4.4 mg/dL (0.2-1.3); Blood Urea Nitrogen 18 mg/dL (9-20); Calcium 8.3 mg/dL (8.4-10.2); Carbon Dioxide 26 mmol/L (22-30); Chloride 98 mmol/L (98-107); Estimated Glomerular Filt Rate 58; Glucose 109 mg/dL (65-110); Lipase 126 U/L (23-300); Potassium 4.1 mmol/L (3.4-5.0); Sodium 131 mmol/L (137-145)
[2021-12-12 16:55] LABS: Lactic Acid Reflex 3.4 mmol/L (0.7-2.1)
[2021-12-12 17:11] LABS: Ammonia 45 umol/L (9-30)
[2021-12-12 17:13] LABS: Add Urine Microscopic? YES; Appearance Urine Clear (Clear); Bilirubin Urine Negative (Negative); Blood Urine Negative (Negative); Color Urine Amber (Yellow); Glucose Urine UA Negative (Negative); Hyaline Casts Urine 30-49 /lpf; Ketones Urine Negative (Negative); Leukocyte Esterase Ur Negative LEU/UL (Negative); Mucus Urine Rare /lpf; Nitrate Urine Negative (Negative); Protein Urine Negative (Negative); RBC Urine 0-2 /hpf (0-2); Specific Grav Ur 1.018 (1.001-1.035); Squamous Epithelial Cell Urine Rare /hpf (Few); WBC Urine 0-3 /hpf
[2021-12-12 17:15] LABS: NT Pro B Type Natriuretic Pept 352 pg/mL (5-100); Troponin I 0.013 ng/mL (0.000-0.034)
[2021-12-12] MEDS: SODIUM CHLORIDE 0.9% IV 1,000 ML 500 ML IV CONT (19:13)
[2021-12-12 19:30] LABS: Reflex Lactic Acid Yes or No Add Lactic
[2021-12-12 20:45] LABS: Lactic Acid 3.1 mmol/L (0.7-2.1)
--- NOTE | 2021-12-12 21:05 | ADMGEN ---
This patient, Minh Nielsen, was admitted to IMU Room 211-01. Patient/family oriented to hospital policies and general routines including ID bracelet, bed and alarms, visiting hours, pain management, procedures, bathroom and other care routines, personal items, smoking policy, room service/diet, and visiting hours. Information on how to activate the Rapid Response Team has been discussed. Patient/Family are encouraged to report perceived risks to care and to ask questions if they do not understand what they are told or what they should do.
--- NOTE | 2021-12-12 22:05 | PM.IMHP ---
H&P: HPI History of Present Illness Date/Time: 12/12/21 22:05 Chief Complaint: Generalized weakness Narrative: This is a 81-year-old male who presents to the ED after being referred by Dr. Elam who he saw this afternoon. He was sent over for overall generalize health decline over the past few months. He had been to be yesterday and was referred to the ER the decline in came to see Dr. Rendon today. He reports he has been fatigued in generally weak overall which is not new but have been slowly declining. Denies any fever chills or abdominal pain. He reports he always has swelling in his legs and his abdomen. He never had abdominal tap done. Dr. Lima had done EGD for variceal surveillance a month ago and revealed only small versus that required no banding. He had last banding done in May 2021. He lives by himself but his son lives close by. He has worsening shortness of breath son reported is been harder to get him around BT. There is no associated nausea vomiting. He does report loss of appetite. Denies having any diarrhea or constipation. In the ED he was noted to have hypotension on arrival and for which he was given 500 cc of normal saline. He has mild leukocytosis at 12 okay. Chest x-ray showed subsegmental atelectasis. CT abdomen and pelvis was done which revealed worsening ascites also noted small area of pneumonia in right basal lung field. His blood pressure has improved however remains soft. His lactic acid was also elevated on admission at 3.4. His lipase is normal and urinalysis showed 30-49 hyaline cast. He is getting admitted in this setting for further evaluation and management. Review of Systems Review of Systems: - CONSTITUTIONAL: Denies weight loss, fever and chills. - HEENT: Denies changes in vision and hearing - RESPIRATORY: Denies SOB and cough. Reports shortness of breath on exertion - CV: Denies palpitations and CP. - GI: Denies abdominal pain, nausea, vomiting and diarrhea. - : Denies dysuria and urinary frequency. - MSK: Denies myalgia and joint pain. - SKIN: Denies rash and pruritus. - NEUROLOGICAL: Denies headache and syncope. - PSYCHIATRIC: Denies recent changes in mood. Denies anxiety and depression. All systems reviewed & are unremarkable except as noted in HPI and below Constitutional: Constitutional: Reports fatigue and Reports weakness Neurologic: Reports weakness Endocrine: Endocrine: Reports fatigue PMFSH Past Medical History Medical History Adenomatous colon polyp BPH (benign prostatic hyperplasia) Cirrhosis Coagulopathy Diverticulitis Duodenal ulcer Esophageal stricture Esophageal varices GERD (gastroesophageal reflux disease) Gout [place] (hard of hearing) Hx SBO Hypertension Kidney stones Lung nodule Portal hypertension Portal hypertensive gastropathy Skin cancer Thrombocytopenia due to hypersplenism Vitamin B 12 deficiency Surgical History Surgical History H/O colonoscopy H/O esophagogastroduodenoscopy H/O hernia repair History of bowel resection Hx laparoscopic cholecystectomy Hx of appendectomy S/P TURP Family History Family History Father Acute myocardial infarction Family history of irritable bowel syndrome Mother Family history of dementia Social History Social History Smoking status: Unknown if ever smoked Tobacco type: cigarettes Smoking end date: 09/23/72 Alcohol intake: never Substance use: never Substance use type: does not use Gender identity (if verbalized by the patient): Male Spiritual care concerns: No Meds Home Medications and Allergies Home Medications Medication Instructions Recorded Confirmed Type allopurinol 300 mg PO DAILY 01/12/21 12/12/21 History omeprazo
[2021-12-12] MEDS: ALBUMIN HUMAN 25% 25 GM/100 ML 100 ML IVPB (23:34)
[2021-12-13] VITALS (14 sets, daily range): BP systolic 91–98; BP diastolic 45–64; PULSE 63–83; RESP 14–20; TEMP 36.4–36.8; O2SAT 95–98
--- NOTE | 2021-12-13 | ECHO_ITS ---
Patient Info Name: Minh Nielsen Age: 81 years : 1940 Gender: Male Ht: 72 in Wt: 213 lbs BSA: 2.23 m2 HR: 64 bpm BP: 91 / 62 mmHg Heart Rhythm: Sinus Rhythm Technical Quality: Fair Exam Date: 12/13/2021 6:47 AM Exam Location: [facility] Patient Status: Outpatient Admit Date: 12/12/2021 Staff Ordering Physician: Georges Manzano MD Auto Dealer: Rema Tobias RDCS Attending Provider: Georges Manzano MD Exam Type: CA echo doppler color flow Study Info Indications - Shortness of breath Complete two-dimensional, color flow and Doppler transthoracic echocardiogram is performed. Summary 1. Complete two-dimensional, color flow and Doppler transthoracic echocardiogram is performed. 2. Left ventricular chamber dimension is normal. 3. Left ventricular systolic function is normal, estimated at 60-65%. 4. There is mildly increased left ventricular wall thickness. 5. The left ventricular diastolic function is normal. 6. Right ventricular chamber dimension is mildly enlarged. 7. Left atrial chamber dimension is moderately enlarged. 8. Right atrial chamber dimension is mildly enlarged. 9. There is mild aortic valve regurgitation. 10. There is mild mitral valve regurgitation. 11. There is mild tricuspid valve regurgitation. 12. Mild pulmonary hypertension, estimated pulmonary arterial systolic pressure is 38 mmHg. 13. There is small pericardial effusion. 14. The prox ascending aorta size is mildly dilated. Left Ventricle Left ventricular chamber dimension is normal. Left ventricular systolic function is normal, estimated at 60-65%. There is mildly increased left ventricular wall thickness. The left ventricular diastolic function is normal. Right Ventricle Right ventricular chamber dimension is mildly enlarged. Right ventricular systolic function is normal. Left Atria Left atrial chamber dimension is moderately enlarged. Right Atria Right atrial chamber dimension is mildly enlarged. Atrial Septum Intact interatrial septum visualized by color flow imaging. Aortic Valve The aortic valve is trileaflet. There is mild aortic valve sclerosis. There is no aortic valve stenosis. There is mild aortic valve regurgitation. Pulmonic Valve The pulmonic valve is normal. There is no pulmonic valve stenosis. There is trace pulmonic regurgitation. Mitral Valve The mitral valve has normal leaflets. There is no mitral valve stenosis. There is mild mitral valve regurgitation. Tricuspid Valve The tricuspid valve leaflets are normal. There is no significant tricuspid valve stenosis. There is mild tricuspid valve regurgitation. Mild pulmonary hypertension, estimated pulmonary arterial systolic pressure is 38 mmHg. Pericardium/Pleural The pericardium appears normal. There is small pericardial effusion. Inferior Vena Cava Normal inferior vena cava with >50% collapse upon inspiration consistent with normal right atrial pressure, 10 mmHg. Aorta The aortic root size at the sinus of Valsalva is normal. The prox ascending aorta size is mildly dilated. Left Ventricular Outflow Tract Name Value Normal LVOT 2D LVOT Diameter 2.1 cm LV
[2021-12-13 05:33] LABS: Ammonia < 9 umol/L (9-30)
[2021-12-13 05:36] LABS: Alanine Aminotransferase 34 U/L (4-50); Albumin Level 2.3 g/dL (3.5-5.1); Alkaline Phosphatase 114 U/L (38-126); Anion Gap 5 mmol/L (8-16); Aspartate Amino Transferase 67 U/L (17-59); Bilirubin,Total 4.6 mg/dL (0.2-1.3); Blood Urea Nitrogen 18 mg/dL (9-20); Calcium 8.1 mg/dL (8.4-10.2); Carbon Dioxide 24 mmol/L (22-30); Chloride 102 mmol/L (98-107); Estimated CRCL calculation 64 ml/min; Estimated Glomerular Filt Rate > 60; Glucose 85 mg/dL (65-110); Potassium 4.6 mmol/L (3.4-5.0); Sodium 131 mmol/L (137-145)
[2021-12-13] MEDS: ALBUMIN HUMAN 25% 25 GM/100 ML 100 ML IVPB ×3 (05:50→17:58)
--- NOTE | 2021-12-13 07:16 | WPDGICN ---
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 There is not a history of excessive alcohol use or hepatitis B or C. He has been previously investigated by Dr. juárez. (2) Hypotension: Code(s): I95.9 - Hypotension, unspecified Status: Acute Assessment and Plan: Blood pressure in the office was 78/56. He was also hypotensive on presentation to the emergency room. He was given a fluid bolus of 500 mL normal saline. There was a delicate balance between using diuretics to control his ascites and edema verses his blood pressure. He is now receiving albumin which should help in that regard. (3) Dehydration: Code(s): E86.0 - Dehydration Status: Acute Assessment and Plan: blood pressure was low on arrival and yesterday in the office. After fluid bolus his pressure is better. (4) Esophageal varices: Code(s): I85.00 - Esophageal varices without bleeding Status: Acute Assessment and Plan: he has been on propanolol but we will hold that today until we are sure that his blood pressure is not soft after paracentesis (5) Ascites: Qualifiers: Ascites type: other type Qualified Code(s): R18.8 - Other ascites Code(s): R18.8 - Other ascites Status: Acute Assessment and Plan: I had started him on furosemide 40 mg daily in addition to spironolactone 100 mg per day. In the past year his weight has fluctuated between 98 and 102 kg, mostly around 100 kg. The 102 kg was last May today his weight is 92.7 kg despite his weight loss, he still has significant ascites and marked extremity edema. He had not yet had a paracentesis. Insurance was slow to give approval and he actually had been scheduled to have paracentesis next week as an outpatient. I discussed this with Madi dejesus over, he will have diagnostic paracentesis this morning. (6) Pneumonia: Qualifiers: Laterality: unspecified laterality Lung location: lower lobe of lung Pneumonia type: due to unspecified organism Qualified Code(s): J18.9 - Pneumonia, unspecified organism Code(s): J18.9 - Pneumonia, unspecified organism Status: Acute Assessment and Plan: bilateral linear changes in bases of both lungs, possible pneumonia . Antibiotics have been started GI Consult Note Consult date/time: 12/13/21 07:16 HPI: Minh Nielsen is a 81 year old male who has been known to have cirrhosis for the last couple of years. 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 He was seen by his primary care physician at the [facility] in [facility] yesterday. He was supposed to have blood work drawn but the doctor said it would be better for him to go down to the emergency room and be admitted because he did not look good. He declined and decided he would come here to see me today. I had performed an EGD on him several months ago and found grade 3 esophageal varices. they were banded. He came in for repeat exam last month and varices were nearly gone. He has been taking propanolol 20 mg per day. He also suffers from ascites which is somewhat refractory. I started him on spironolactone and Lasix. this has resulted in him losing about 12 lb in the last couple of months but the son states that his legs are as swollen as ever. today, He was found to be hypotensive and his son asked if I could admit him overnight. I explained him that he Each should go into the emergency room because of his hypotension and dehydration. He also appears more jaundiced than I have noticed in the past Review of Systems Review of Systems: All systems reviewed & are unremarkable except as noted in HPI and below [facility] Past Medical History Medical History (Updated 12/13/21 @ 08
[2021-12-13 07:49] LABS: Basophils Percent Auto 0.4 % (0.2-1.2); Eosinophils Absolute Auto 0.2 K/mm3 (0-0.3); Eosinophils Percent Auto 2.1 % (0-4.4); Hematocrit 29.9 % (42.0-52.0); Hemoglobin 10.8 g/dL (14.0-18.0); Immature Granulocyte Absolute 0.07 K/mm3 (0.00-0.031); Lymphocytes Absolute Auto 1.48 K/mm3 (0.9-3.2); Lymphocytes Percent Auto 20.2 % (18.3-44.2); Mean Corpuscular HGB Conc 36.1 g/dl (32-36); Mean Corpuscular Hemoglobin 35.3 pg (26-34); Mean Corpuscular Volume 97.7 fl (80-100); Mean Platelet Volume 10.9 fl (7.4-10.4); Monocytes Percent Auto 13.5 % (2.6-8.5); Neutrophils Absolute Auto 4.6 K/mm3 (1.3-6.7); Neutrophils Percent Auto 62.8 % (45.5-73.1); Platelet Count Result 92 k/mm3 (150-375); Red Blood Count 3.06 M/mm3 (4.6-6.20); Red Cell Distribution Width 16.2 % (11.5-14.5); White Blood Count 7.3 K/mm3 (4.5-10.0)
[2021-12-13 07:56] LABS: INR 2.1; Prothrombin Time 22.7 Seconds (11.1-14.7)
[2021-12-13 07:57] LABS: Partial Thromboplastin Time 45.6 SECONDS (22.3-36.8)
[2021-12-13] MEDS: allopurinoL 300 MG TABLET PO (09:04)
[2021-12-13] MEDS: PANTOPRAZOLE 40 MG TABLET PO ×2 (09:04→17:57)
--- NOTE | 2021-12-13 09:52 | PCOTNOTE ---
Attempted OT evaluation, patient is currently off the unit for testing, will follow and attempt at later time.
--- NOTE | 2021-12-13 13:30 | P.PNIM_ITS ---
Progress Note: A&P Assessment and Plan (1) Pneumonia: Qualifiers: Laterality: unspecified laterality Lung location: lower lobe of lung Pneumonia type: due to unspecified organism Qualified Code(s): J18.9 - Pneumonia, unspecified organism Code(s): J18.9 - Pneumonia, unspecified organism Status: Acute Assessment and Plan: * Chest xray shows Small amount of bibasilar linear opacity likely subsegmental atelectasis. * CT shows Right lower lobe posterior segmental endobronchial debris and opacity most likely subsegmental pneumonia. * WBC is slightly elevated at 12.5 upon admission, Current WBC is 7.3 * Continue ceftriaxone and azithromycin * Sputum culture ordered * Blood culture pending * Trend labs * Adjust therapy as indicated (2) Hyperbilirubinemia: Code(s): E80.6 - Other disorders of bilirubin metabolism Status: Acute Assessment and Plan: * Bilirubin elevated at 4.6 today * Secondary to the cirrhosis * Probably causing him the jaundice * Ammonia was elevated on arrival * Given lactulose in the ED * Continue to trend (3) Chronic liver disease and cirrhosis: Code(s): K74.60 - Unspecified cirrhosis of liver; K76.9 - Liver disease, unspecified Status: Acute Assessment and Plan: * CT showed cirrhosis with portal hypertension * AFP pending * Cryptogenic cirrhosis * no history of alcohol or hepatitis * Coagulopathy monitor INR * GI consulted thank you for your help (4) Edema: Qualifiers: Edema type: localized Qualified Code(s): R60.0 - Localized edema Code(s): R60.9 - Edema, unspecified Status: Acute Assessment and Plan: * Lower extremity edema 4+ * venous duplex however likely due to lying cirrhosis * Echo EF 60-65%, normal diastolic dysfunction * Does not look to be due to heart failure (5) Hypotension: Code(s): I95.9 - Hypotension, unspecified Status: Acute Assessment and Plan: * BP noted 78/56 in the ED * Current BP is 91/62 * Received 500 cc bolus in the ER * albumin ordered * Check echocardiogram * Trend labs and vital signs * Monitor BP as he is also getting Lasix and spironolactone (6) Ascites: Qualifiers: Ascites type: other type Qualified Code(s): R18.8 - Other ascites Code(s): R18.8 - Other ascites Status: Acute Assessment and Plan: * CT abd showed moderate to severe ascites * Secondary to cirrhosis * Paracentesis ordered and pending * Will get diagnostics * GI on board (7) Esophageal varices: Code(s): I85.00 - Esophageal varices without bleeding Status: Acute Assessment and Plan: * History of versus status post banding last in 05/2021 * Recent EGD 11/16/2021 with small grade 1 varices in distal esophagus * GI on board (8) GERD (gastroesophageal reflux disease): Code(s): K21.9 - Gastro-esophageal reflux disease without esophagitis Status: Acute Assessment and Plan: * Continue home medications (9) Gout: Code(s): M10.9 - Gout, unspecified Status: Inactive Assessment and Plan: * Continue home medications (10) Transaminitis: Code(s): R74.01 - Elevation of levels of liver transaminase levels Status: Acute Assessment and Plan: * A
--- NOTE | 2021-12-13 13:30 | PM.IMPN ---
Progress Note: A&P Assessment and Plan (1) Pneumonia: Qualifiers: Laterality: unspecified laterality Lung location: lower lobe of lung Pneumonia type: due to unspecified organism Qualified Code(s): J18.9 - Pneumonia, unspecified organism Code(s): J18.9 - Pneumonia, unspecified organism Status: Acute Assessment and Plan: Chest xray shows Small amount of bibasilar linear opacity likely subsegmental atelectasis. CT shows Right lower lobe posterior segmental endobronchial debris and opacity most likely subsegmental pneumonia. WBC is slightly elevated at 12.5 upon admission, Current WBC is 7.3 Continue ceftriaxone and azithromycin Sputum culture ordered Blood culture pending Trend labs Adjust therapy as indicated (2) Hyperbilirubinemia: Code(s): E80.6 - Other disorders of bilirubin metabolism Status: Acute Assessment and Plan: Bilirubin elevated at 4.6 today Secondary to the cirrhosis Probably causing him the jaundice Ammonia was elevated on arrival Given lactulose in the ED Continue to trend (3) Chronic liver disease and cirrhosis: Code(s): K74.60 - Unspecified cirrhosis of liver; K76.9 - Liver disease, unspecified Status: Acute Assessment and Plan: CT showed cirrhosis with portal hypertension AFP pending 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 Coagulopathy monitor INR GI consulted thank you for your help (4) Edema: Qualifiers: Edema type: localized Qualified Code(s): R60.0 - Localized edema Code(s): R60.9 - Edema, unspecified Status: Acute Assessment and Plan: Lower extremity edema 4+ venous duplex however likely due to lying cirrhosis Echo EF 60-65%, normal diastolic dysfunction Does not look to be due to heart failure (5) Hypotension: Code(s): I95.9 - Hypotension, unspecified Status: Acute Assessment and Plan: BP noted 78/56 in the ED Current BP is 91/62 Received 500 cc bolus in the ER albumin ordered Check echocardiogram Trend labs and vital signs Monitor BP as he is also getting Lasix and spironolactone (6) Ascites: Qualifiers: Ascites type: other type Qualified Code(s): R18.8 - Other ascites Code(s): R18.8 - Other ascites Status: Acute Assessment and Plan: CT abd showed moderate to severe ascites Secondary to cirrhosis Paracentesis ordered and pending Will get diagnostics GI on board (7) Esophageal varices: Code(s): I85.00 - Esophageal varices without bleeding Status: Acute Assessment and Plan: History of versus status post banding last in 05/2021 Recent EGD 11/16/2021 with small grade 1 varices in distal esophagus GI on board (8) GERD (gastroesophageal reflux disease): Code(s): K21.9 - Gastro-esophageal reflux disease without esophagitis Status: Acute Assessment and Plan: Continue home medications (9) Gout: Code(s): M10.9 - Gout, unspecified Status: Inactive Assessment and Plan: Continue home medications (10) Transaminitis: Code(s): R74.01 - Elevation of levels of liver transaminase levels Status: Acute Assessment and Plan: AST/ALT 67/34, Alk Phos 114 Trend labs Related to cirrhosis Time Spent With Patient Time with patient: Greater than 35 minutes Subjective Date/time seen: 12/13/21 13:30 Interval history: Date/Time: 12/12/21 22:05 Narrative: This is a 81-year-old male who presents to the ED after being referred by Dr. Elam who he saw this afternoon. He was sent over for overall generalize health decline over the past few months. He had been to be yesterday and was referred to the ER the decline in came to see Dr. Rendon today. He reports he has been fatigued in generally weak overall which is not
[2021-12-13 13:59] LABS: Appearance Peritoneal Fluid Cloudy (Clear); Source Peritoneal Fluid Peritoneal Fluid
[2021-12-13 14:00] LABS: Color Peritoneal Fluid Yellow (Colorless); Lymphocytes Peritoneal Fluid 42 %; Macrophages Peritoneal Fluid 3 %; Monocytes Peritoneal Fluid 7 %; Neutrophils Peritoneal Fluid 14 % (0-25); Nucleated Cells Peritoneal Flu 28 /uL (0-500); RBC Peritoneal Fluid 157 /uL (0-100000)
[2021-12-13 14:01] LABS: Mesothelial Cells Peritoneal Fluid 34 %
[2021-12-14] VITALS (8 sets, daily range): BP systolic 90–96; BP diastolic 46–54; PULSE 64–81; RESP 18–20; TEMP 36–36.6; O2SAT 91–100
[2021-12-14 05:31] LABS: Basophils Percent Auto 0.3 % (0.2-1.2); Eosinophils Absolute Auto 0.1 K/mm3 (0-0.3); Eosinophils Percent Auto 1.7 % (0-4.4); Hematocrit 26.3 % (42.0-52.0); Hemoglobin 9.3 g/dL (14.0-18.0); Immature Granulocyte Absolute 0.04 K/mm3 (0.00-0.031); Immature Granulocyte Percent A 0.7 % (0-0.5); Immature Platelet Fraction Pct 5.3 % (0.9-11.2); Lymphocytes Absolute Auto 1.23 K/mm3 (0.9-3.2); Lymphocytes Percent Auto 20.5 % (18.3-44.2); Mean Corpuscular HGB Conc 35.4 g/dl (32-36); Mean Corpuscular Hemoglobin 35.1 pg (26-34); Mean Corpuscular Volume 99.2 fl (80-100); Mean Platelet Volume 10.3 fl (7.4-10.4); Monocytes Absolute Auto 0.9 K/mm3 (0.1-0.6); Monocytes Percent Auto 14.4 % (2.6-8.5); Neutrophils Absolute Auto 3.7 K/mm3 (1.3-6.7); Neutrophils Percent Auto 62.4 % (45.5-73.1); Platelet Count Result 73 k/mm3 (150-375); Red Blood Count 2.65 M/mm3 (4.6-6.20); Red Cell Distribution Width 15.9 % (11.5-14.5)
[2021-12-14 05:44] LABS: Alanine Aminotransferase 25 U/L (4-50); Albumin Level 2.7 g/dL (3.5-5.1); Alkaline Phosphatase 81 U/L (38-126); Anion Gap 6 mmol/L (8-16); Aspartate Amino Transferase 41 U/L (17-59); Bilirubin,Total 5.4 mg/dL (0.2-1.3); Blood Urea Nitrogen 16 mg/dL (9-20); Calcium 8.5 mg/dL (8.4-10.2); Carbon Dioxide 24 mmol/L (22-30); Chloride 101 mmol/L (98-107); Estimated CRCL calculation 64 ml/min; Estimated Glomerular Filt Rate > 60; Glucose 81 mg/dL (65-110); Magnesium 1.9 mg/dL (1.6-2.3); Sodium 131 mmol/L (137-145)
[2021-12-14] MEDS: ALBUMIN HUMAN 25% 25 GM/100 ML 100 ML IVPB ×4 (06:35→17:24)
--- NOTE | 2021-12-14 08:15 | PM.IMPN ---
Progress Note: A&P Assessment and Plan (1) Pneumonia: Qualifiers: Laterality: unspecified laterality Lung location: lower lobe of lung Pneumonia type: due to unspecified organism Qualified Code(s): J18.9 - Pneumonia, unspecified organism Code(s): J18.9 - Pneumonia, unspecified organism Status: Acute Assessment and Plan: Chest xray shows Small amount of bibasilar linear opacity likely subsegmental atelectasis. CT shows Right lower lobe posterior segmental endobronchial debris and opacity most likely subsegmental pneumonia. WBC is slightly elevated at 12.5 upon admission, Current WBC is 6.0 Continue ceftriaxone and azithromycin Sputum culture ordered Blood culture NGTD Trend labs Adjust therapy as indicated (2) Hyperbilirubinemia: Code(s): E80.6 - Other disorders of bilirubin metabolism Status: Acute Assessment and Plan: Bilirubin elevated at 5.4 today Secondary to the cirrhosis Probably causing him the jaundice Ammonia was elevated on arrival Continue to trend (3) Chronic liver disease and cirrhosis: Code(s): K74.60 - Unspecified cirrhosis of liver; K76.9 - Liver disease, unspecified Status: Acute Assessment and Plan: CT showed cirrhosis with portal hypertension AFP pending 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 Coagulopathy monitor INR GI consulted thank you for your help (4) Edema: Qualifiers: Edema type: localized Qualified Code(s): R60.0 - Localized edema Code(s): R60.9 - Edema, unspecified Status: Acute Assessment and Plan: Lower extremity edema 4+ venous duplex however likely due to lying cirrhosis Echo EF 60-65%, normal diastolic dysfunction Does not look to be due to heart failure Spironolactone started will monitor BP if BP remains stable will restart lasix (5) Hypotension: Code(s): I95.9 - Hypotension, unspecified Status: Acute Assessment and Plan: BP noted 78/56 in the ED Current BP is 91/53 Received 500 cc bolus in the ER albumin ordered Q6hr Echocardiogram EF 60-65%, normal diastolic dysfunction Trend labs and vital signs Monitor BP as he is also getting Lasix and spironolactone (6) Ascites: Qualifiers: Ascites type: other type Qualified Code(s): R18.8 - Other ascites Code(s): R18.8 - Other ascites Status: Acute Assessment and Plan: CT abd showed moderate to severe ascites Secondary to cirrhosis Paracentesis ordered and took off 3100ml Start on spironolactone 100mg PO BID Will get diagnostics GI on board (7) Esophageal varices: Code(s): I85.00 - Esophageal varices without bleeding Status: Acute Assessment and Plan: History of versus status post banding last in 05/2021 Recent EGD 11/16/2021 with small grade 1 varices in distal esophagus GI on board (8) GERD (gastroesophageal reflux disease): Code(s): K21.9 - Gastro-esophageal reflux disease without esophagitis Status: Acute Assessment and Plan: Continue home medications (9) Gout: Code(s): M10.9 - Gout, unspecified Status: Inactive Assessment and Plan: Continue home medications (10) Transaminitis: Code(s): R74.01 - Elevation of levels of liver transaminase levels Status: Acute Assessment and Plan: AST/ALT 41/25, Alk Phos 81 Trend labs Related to cirrhosis Time Spent With Patient Time with patient: Greater than 35 minutes Subjective Date/time seen: 12/14/21 0815 Interval history: Date/Time: 12/12/21 22:05 Narrative: This is a 81-year-old male who presents to the ED after being referred by Dr. Elam who he saw this afternoon. He was sent over for overall generalize health decline over the past few months. He had been to be yesterday and was ref
--- NOTE | 2021-12-14 08:15 | P.PNIM_ITS ---
Progress Note: A&P Assessment and Plan (1) Pneumonia: Qualifiers: Laterality: unspecified laterality Lung location: lower lobe of lung Pneumonia type: due to unspecified organism Qualified Code(s): J18.9 - Pneumonia, unspecified organism Code(s): J18.9 - Pneumonia, unspecified organism Status: Acute Assessment and Plan: * Chest xray shows Small amount of bibasilar linear opacity likely subsegmental atelectasis. * CT shows Right lower lobe posterior segmental endobronchial debris and opacity most likely subsegmental pneumonia. * WBC is slightly elevated at 12.5 upon admission, Current WBC is 6.0 * Continue ceftriaxone and azithromycin * Sputum culture ordered * Blood culture NGTD * Trend labs * Adjust therapy as indicated (2) Hyperbilirubinemia: Code(s): E80.6 - Other disorders of bilirubin metabolism Status: Acute Assessment and Plan: * Bilirubin elevated at 5.4 today * Secondary to the cirrhosis * Probably causing him the jaundice * Ammonia was elevated on arrival * Continue to trend (3) Chronic liver disease and cirrhosis: Code(s): K74.60 - Unspecified cirrhosis of liver; K76.9 - Liver disease, unspecified Status: Acute Assessment and Plan: * CT showed cirrhosis with portal hypertension * AFP pending * Cryptogenic cirrhosis * no history of alcohol or hepatitis * Coagulopathy monitor INR * GI consulted thank you for your help (4) Edema: Qualifiers: Edema type: localized Qualified Code(s): R60.0 - Localized edema Code(s): R60.9 - Edema, unspecified Status: Acute Assessment and Plan: * Lower extremity edema 4+ * venous duplex however likely due to lying cirrhosis * Echo EF 60-65%, normal diastolic dysfunction * Does not look to be due to heart failure * Spironolactone started will monitor BP if BP remains stable will restart lasix (5) Hypotension: Code(s): I95.9 - Hypotension, unspecified Status: Acute Assessment and Plan: * BP noted 78/56 in the ED * Current BP is 91/53 * Received 500 cc bolus in the ER * albumin ordered Q6hr * Echocardiogram EF 60-65%, normal diastolic dysfunction * Trend labs and vital signs * Monitor BP as he is also getting Lasix and spironolactone (6) Ascites: Qualifiers: Ascites type: other type Qualified Code(s): R18.8 - Other ascites Code(s): R18.8 - Other ascites Status: Acute Assessment and Plan: * CT abd showed moderate to severe ascites * Secondary to cirrhosis * Paracentesis ordered and took off 3100ml * Start on spironolactone 100mg PO BID * Will get diagnostics * GI on board (7) Esophageal varices: Code(s): I85.00 - Esophageal varices without bleeding Status: Acute Assessment and Plan: * History of versus status post banding last in 05/2021 * Recent EGD 11/16/2021 with small grade 1 varices in distal esophagus * GI on board (8) GERD (gastroesophageal reflux disease): Code(s): K21.9 - Gastro-esophageal reflux disease without esophagitis Status: Acute Assessment and Plan: * Continue home medications (9) Gout: Code(s): M10.9 - Gout, unspecified Status: Inactive Assessment and Plan: * Continue home medications (10) Transaminitis:
[2021-12-14] MEDS: PANTOPRAZOLE 40 MG TABLET PO ×2 (09:33→17:24)
[2021-12-14] MEDS: allopurinoL 300 MG TABLET PO (09:33)
--- NOTE | 2021-12-14 11:08 | WPDGIPROGNO ---
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 There is not a history of excessive alcohol use or hepatitis B or C. He has been previously investigated by Dr. juárez. As I told him, at this point the etiology is not an issue because he is at end-stage liver disease (2) Hypotension: Code(s): I95.9 - Hypotension, unspecified Status: Acute Assessment and Plan: Blood pressure in the office was 78/56. He was also hypotensive on presentation to the emergency room. He was given a fluid bolus of 500 mL normal saline. There was a delicate balance between using diuretics to control his ascites and edema verses his blood pressure. He is now receiving albumin which should help in that regard. 12/14 his blood pressure is still low today. (3) Dehydration: Code(s): E86.0 - Dehydration Status: Acute Assessment and Plan: blood pressure was low on arrival and yesterday in the office. After fluid bolus his pressure is better. It is going to be [place] areas trying to balance his blood pressure verses diuretics. (4) Esophageal varices: Code(s): I85.00 - Esophageal varices without bleeding Status: Acute Assessment and Plan: he has been on propanolol but we will hold that today until we are sure that his blood pressure is not soft after paracentesis (5) Ascites: Qualifiers: Ascites type: other type Qualified Code(s): R18.8 - Other ascites Code(s): R18.8 - Other ascites Status: Acute Assessment and Plan: I had started him on furosemide 40 mg daily in addition to spironolactone 100 mg per day. In the past year his weight has fluctuated between 98 and 102 kg, mostly around 100 kg. The 102 kg was last May today his weight is 92.7 kg despite his weight loss, he still has significant ascites and marked extremity edema. He had not yet had a paracentesis. Insurance was slow to give approval and he actually had been scheduled to have paracentesis next week as an outpatient. I discussed this with Gamal Ramos he will have diagnostic paracentesis this morning. 12/14 Paracentesis was tolerated well. Surprisingly his weight did not change, he is still 98 kg (6) Pneumonia: Qualifiers: Laterality: unspecified laterality Lung location: lower lobe of lung Pneumonia type: due to unspecified organism Qualified Code(s): J18.9 - Pneumonia, unspecified organism Code(s): J18.9 - Pneumonia, unspecified organism Status: Acute Assessment and Plan: bilateral linear changes in bases of both lungs, possible pneumonia . Antibiotics have been started (7) Generalized weakness: Code(s): R53.1 - Weakness Status: Acute Assessment and Plan: he acknowledges that he should not be living alone. His son is very close to this hospital. He is going to talk to his son today about perhaps moving in with him. Subjective Date/time seen: 12/14/21 11:08 Interval history: Date/Time: 12/12/21 22:05 Narrative: This is a 81-year-old male who presents to the ED after being Seen in my office on Saturday He was sent over for overall generalize health decline over the past few months. He had been to the [facility] in [place]. They had wanted him to go to their emergency room but he decided to come to see me in the office the following day.. He reports he has been fatigued in generally weak overall which is not new but have been slowly declining. Denies any fever chills or abdominal pain. He reports he always has swelling in his legs and his abdomen. He never had abdominal tap done. I had done EGD for variceal surveillance a month ago and revealed only small versus that required no banding. He had las
[2021-12-14 12:02] LABS: Lactate Dehydrogenase 314 U/L (313-618)
[2021-12-14 12:35] LABS: Iron 96 ug/dL (49-181)
[2021-12-14 12:44] LABS: Percent Iron Saturation 77 % (20-50)
[2021-12-14 13:11] LABS: Folic Acid 7.9 ng/mL (2.76->20); Vitamin B12 > 1000.0 pg/mL (239-931)
--- NOTE | 2021-12-14 17:09 | PC.NURSE ---
Notified 3 Med/Surg of fax and tubed SBAR at 1277.
[2021-12-14] MEDS: SPIRONOLACTONE 50 MG TABLET 100 MG PO (17:23)
--- NOTE | 2021-12-14 17:49 | PC.NURSE ---
This patient, Minh Nielsen, was transferred to [facility] on 12/14/21 at 1743. Personal belongings sent with patient. Report given to Ktat LADD. Appropriate documentation sent with patient.
--- NOTE | 2021-12-14 17:55 | PC.NURSE ---
patient transfer from room 211 to room 322
[2021-12-15] MEDS: ALBUMIN HUMAN 25% 25 GM/100 ML 100 ML IVPB ×5 (00:03→23:55)
[2021-12-15 03:01] LABS: Transferrin < 80 mg/dL (206-381)
[2021-12-15 05:43] VITALS: BP 88/52; PULSE 112; RESP 18; TEMP 36.3; O2SAT 94
[2021-12-15 06:28] LABS: Alanine Aminotransferase 21 U/L (4-50); Albumin Level 3.1 g/dL (3.5-5.1); Alkaline Phosphatase 61 U/L (38-126); Anion Gap 5 mmol/L (8-16); Aspartate Amino Transferase 37 U/L (17-59); Bilirubin,Total 5.2 mg/dL (0.2-1.3); Blood Urea Nitrogen 16 mg/dL (9-20); Calcium 8.8 mg/dL (8.4-10.2); Carbon Dioxide 25 mmol/L (22-30); Chloride 101 mmol/L (98-107); Estimated CRCL calculation 58 ml/min; Estimated Glomerular Filt Rate > 60; Glucose 85 mg/dL (65-110); Magnesium 1.9 mg/dL (1.6-2.3); Sodium 131 mmol/L (137-145)
[2021-12-15 06:49] LABS: Basophils Percent Auto 0.6 % (0.2-1.2); Eosinophils Absolute Auto 0.1 K/mm3 (0-0.3); Eosinophils Percent Auto 1.9 % (0-4.4); Hemoglobin 8.6 g/dL (14.0-18.0); Immature Granulocyte Absolute 0.06 K/mm3 (0.00-0.031); Immature Platelet Fraction Pct 5.3 % (0.9-11.2); Lymphocytes Absolute Auto 1.28 K/mm3 (0.9-3.2); Lymphocytes Percent Auto 20.7 % (18.3-44.2); Mean Corpuscular HGB Conc 35.8 g/dl (32-36); Mean Corpuscular Volume 97.6 fl (80-100); Mean Platelet Volume 11.3 fl (7.4-10.4); Monocytes Percent Auto 16.3 % (2.6-8.5); Neutrophils Absolute Auto 3.7 K/mm3 (1.3-6.7); Neutrophils Percent Auto 59.5 % (45.5-73.1); Platelet Count Result 61 k/mm3 (150-375); Red Blood Count 2.46 M/mm3 (4.6-6.20); Red Cell Distribution Width 15.9 % (11.5-14.5); White Blood Count 6.2 K/mm3 (4.5-10.0)
--- NOTE | 2021-12-15 09:00 | P.PNIM_ITS ---
Progress Note: A&P Assessment and Plan (1) Pneumonia: Qualifiers: Laterality: unspecified laterality Lung location: lower lobe of lung Pneumonia type: due to unspecified organism Qualified Code(s): J18.9 - Pneumonia, unspecified organism Code(s): J18.9 - Pneumonia, unspecified organism Status: Acute Assessment and Plan: * Chest xray shows Small amount of bibasilar linear opacity likely subsegmental atelectasis. * CT shows Right lower lobe posterior segmental endobronchial debris and opacity most likely subsegmental pneumonia. * WBC is slightly elevated at 12.5 upon admission, Current WBC is 6.0 * Continue ceftriaxone and azithromycin * Sputum culture ordered * Blood culture NGTD * Trend labs * Adjust therapy as indicated (2) Hyperbilirubinemia: Code(s): E80.6 - Other disorders of bilirubin metabolism Status: Acute Assessment and Plan: * Bilirubin elevated at 5.2 today * Secondary to the cirrhosis * Probably causing him the jaundice * Ammonia was elevated on arrival * Continue to trend (3) Chronic liver disease and cirrhosis: Code(s): K74.60 - Unspecified cirrhosis of liver; K76.9 - Liver disease, unspecified Status: Acute Assessment and Plan: * CT showed cirrhosis with portal hypertension * AFP pending * Cryptogenic cirrhosis * no history of alcohol or hepatitis * Coagulopathy monitor INR * GI consulted thank you for your help (4) Edema: Qualifiers: Edema type: localized Qualified Code(s): R60.0 - Localized edema Code(s): R60.9 - Edema, unspecified Status: Acute Assessment and Plan: * Lower extremity edema 4+ * venous duplex however likely due to lying cirrhosis * Echo EF 60-65%, normal diastolic dysfunction * Does not look to be due to heart failure * Spironolactone started will monitor BP if BP remains stable will restart lasix (5) Hypotension: Code(s): I95.9 - Hypotension, unspecified Status: Acute Assessment and Plan: * BP noted 78/56 in the ED * Current BP is 112/68 * albumin ordered Q6hr * Echocardiogram EF 60-65%, normal diastolic dysfunction * Trend labs and vital signs * Monitor BP as he is getting spironolactone * If BP stays elevated will add lasix (6) Ascites: Qualifiers: Ascites type: other type Qualified Code(s): R18.8 - Other ascites Code(s): R18.8 - Other ascites Status: Acute Assessment and Plan: * CT abd showed moderate to severe ascites * Secondary to cirrhosis * Paracentesis ordered and took off 3100ml (12/13/21) * Start on spironolactone 100mg PO BID * Labs did not grow any organisms or had any notable WBC * Pathology did not identify any malignant cells * GI on board (7) Esophageal varices: Code(s): I85.00 - Esophageal varices without bleeding Status: Acute Assessment and Plan: * History of versus status post banding last in 05/2021 * Recent EGD 11/16/2021 with small grade 1 varices in distal esophagus * GI on board (8) GERD (gastroesophageal reflux disease): Code(s): K21.9 - Gastro-esophageal reflux disease without esophagitis Status: Acute Assessment and Plan: * Continue home medications (9) Gout: Code(s): M10.9 - Gout, unspecified Status: Inactive Assessment and Plan:
--- NOTE | 2021-12-15 09:00 | PM.IMPN ---
Progress Note: A&P Assessment and Plan (1) Pneumonia: Qualifiers: Laterality: unspecified laterality Lung location: lower lobe of lung Pneumonia type: due to unspecified organism Qualified Code(s): J18.9 - Pneumonia, unspecified organism Code(s): J18.9 - Pneumonia, unspecified organism Status: Acute Assessment and Plan: Chest xray shows Small amount of bibasilar linear opacity likely subsegmental atelectasis. CT shows Right lower lobe posterior segmental endobronchial debris and opacity most likely subsegmental pneumonia. WBC is slightly elevated at 12.5 upon admission, Current WBC is 6.0 Continue ceftriaxone and azithromycin Sputum culture ordered Blood culture NGTD Trend labs Adjust therapy as indicated (2) Hyperbilirubinemia: Code(s): E80.6 - Other disorders of bilirubin metabolism Status: Acute Assessment and Plan: Bilirubin elevated at 5.2 today Secondary to the cirrhosis Probably causing him the jaundice Ammonia was elevated on arrival Continue to trend (3) Chronic liver disease and cirrhosis: Code(s): K74.60 - Unspecified cirrhosis of liver; K76.9 - Liver disease, unspecified Status: Acute Assessment and Plan: CT showed cirrhosis with portal hypertension AFP pending 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 Coagulopathy monitor INR GI consulted thank you for your help (4) Edema: Qualifiers: Edema type: localized Qualified Code(s): R60.0 - Localized edema Code(s): R60.9 - Edema, unspecified Status: Acute Assessment and Plan: Lower extremity edema 4+ venous duplex however likely due to lying cirrhosis Echo EF 60-65%, normal diastolic dysfunction Does not look to be due to heart failure Spironolactone started will monitor BP if BP remains stable will restart lasix (5) Hypotension: Code(s): I95.9 - Hypotension, unspecified Status: Acute Assessment and Plan: BP noted 78/56 in the ED Current BP is 112/68 albumin ordered Q6hr Echocardiogram EF 60-65%, normal diastolic dysfunction Trend labs and vital signs Monitor BP as he is getting spironolactone If BP stays elevated will add lasix (6) Ascites: Qualifiers: Ascites type: other type Qualified Code(s): R18.8 - Other ascites Code(s): R18.8 - Other ascites Status: Acute Assessment and Plan: CT abd showed moderate to severe ascites Secondary to cirrhosis Paracentesis ordered and took off 3100ml (12/13/21) Start on spironolactone 100mg PO BID Labs did not grow any organisms or had any notable WBC Pathology did not identify any malignant cells GI on board (7) Esophageal varices: Code(s): I85.00 - Esophageal varices without bleeding Status: Acute Assessment and Plan: History of versus status post banding last in 05/2021 Recent EGD 11/16/2021 with small grade 1 varices in distal esophagus GI on board (8) GERD (gastroesophageal reflux disease): Code(s): K21.9 - Gastro-esophageal reflux disease without esophagitis Status: Acute Assessment and Plan: Continue home medications (9) Gout: Code(s): M10.9 - Gout, unspecified Status: Inactive Assessment and Plan: Continue home medications (10) Transaminitis: Code(s): R74.01 - Elevation of levels of liver transaminase levels Status: Acute Assessment and Plan: AST/ALT 37/21, Alk Phos 61 Trend labs Related to cirrhosis Ultrasound shows cirrhosis with moderate ascites, limited flow of the portal vein with directional flow Time Spent With Patient Time with patient: Greater than 35 minutes Subjective Date/time seen: 12/15/21 0900 Interval history: Date/Time: 12/12/21 22:05 Narrative: This is a 81-year-old male who presents to t
[2021-12-15] MEDS: PANTOPRAZOLE 40 MG TABLET PO ×2 (10:32→17:44)
[2021-12-15] MEDS: allopurinoL 300 MG TABLET PO (10:32)
[2021-12-15] MEDS: SPIRONOLACTONE 50 MG TABLET 100 MG PO ×2 (10:32→17:44)
[2021-12-15 10:49] VITALS: BP 112/68
[2021-12-15 12:54] LABS: Albumin Peritoneal Fluid 0.2 g/dL
[2021-12-15 14:00] VITALS: BP 104/48; PULSE 78; RESP 14; TEMP 36.3; O2SAT 96
[2021-12-15 14:22] LABS: Amylase Peritoneal Fluid 18 U/L
--- NOTE | 2021-12-15 15:31 | WPDGIPROGNO ---
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 There is not a history of excessive alcohol use or hepatitis B or C. He has been previously investigated by Dr. juárez. As I told him, at this point the etiology is not an issue because he is at end-stage liver disease because his ferritin level is elevated and iron saturation 77%, is very possible that hemochromatosis is a factor in his liver disease. At this point of course it is not important (2) Hypotension: Code(s): I95.9 - Hypotension, unspecified Status: Acute Assessment and Plan: Blood pressure in the office was 78/56. He was also hypotensive on presentation to the emergency room. He was given a fluid bolus of 500 mL normal saline. There was a delicate balance between using diuretics to control his ascites and edema verses his blood pressure. He is now receiving albumin which should help in that regard. 12/14 his blood pressure is still low today. (3) Dehydration: Code(s): E86.0 - Dehydration Status: Acute Assessment and Plan: blood pressure was low on arrival and yesterday in the office. After fluid bolus his pressure is better. It is going to be [place] trying to balance his blood pressure verses diuretics. (4) Esophageal varices: Code(s): I85.00 - Esophageal varices without bleeding Status: Acute Assessment and Plan: he has been on propanolol but we will hold that today until we are sure that his blood pressure is not soft after paracentesis (5) Ascites: Qualifiers: Ascites type: other type Qualified Code(s): R18.8 - Other ascites Code(s): R18.8 - Other ascites Status: Acute Assessment and Plan: I had started him on furosemide 40 mg daily in addition to spironolactone 100 mg per day. In the past year his weight has fluctuated between 98 and 102 kg, mostly around 100 kg. The 102 kg was last May today his weight is 92.7 kg despite his weight loss, he still has significant ascites and marked extremity edema. He had not yet had a paracentesis. Insurance was slow to give approval and he actually had been scheduled to have paracentesis next week as an outpatient. I discussed this with Gamal Ramos he will have diagnostic paracentesis this morning. 12/14 Paracentesis was tolerated well. Surprisingly his weight did not change, he was still 98 kg the following morning but now his weight is down to 93.4 kg (6) Pneumonia: Qualifiers: Laterality: unspecified laterality Lung location: lower lobe of lung Pneumonia type: due to unspecified organism Qualified Code(s): J18.9 - Pneumonia, unspecified organism Code(s): J18.9 - Pneumonia, unspecified organism Status: Acute Assessment and Plan: bilateral linear changes in bases of both lungs, possible pneumonia . Antibiotics have been started. CT suggests right lower lobe pneumonia (7) Generalized weakness: Code(s): R53.1 - Weakness Status: Acute Assessment and Plan: he acknowledges that he should not be living alone. His son is very close to this hospital. He is going to talk to his son today about perhaps moving in with him. Subjective Date/time seen: 12/15/21 15:31 Today he is out of bed, eating. He states that he feels better than Any of the previous several days. His legs do not feel is heavy. He has lost about 10 lb with diuretics and paracentesis. He is still planning to go to his son's house to live after discharge. He had several loose bowel movements last night. This is likely due to the lactulose which we can hold for now. His liver function studies are remaining stable. Bilirubin is 5.2. I did explain to him that the jaundice, the e
[2021-12-15 21:42] LABS: Glucose Peritoneal Fluid 107 mg/dL; LDH Peritoneal Fluid 16 U/L (<63); Total Protein Peritoneal Fluid <3.0 g/dL
[2021-12-15 22:00] VITALS: BP 91/79; PULSE 77; RESP 18; TEMP 36.6; O2SAT 95
[2021-12-16] MEDS: ALBUMIN HUMAN 25% 25 GM/100 ML 100 ML IVPB ×4 (05:34→23:58)
[2021-12-16 06:00] VITALS: BP 90/46; PULSE 80; RESP 16; TEMP 36.6; O2SAT 92
[2021-12-16 07:23] LABS: Basophils Percent Auto 0.4 % (0.2-1.2); Eosinophils Absolute Auto 0.1 K/mm3 (0-0.3); Eosinophils Percent Auto 1.4 % (0-4.4); Hematocrit 24.2 % (42.0-52.0); Hemoglobin 8.4 g/dL (14.0-18.0); Immature Granulocyte Absolute 0.06 K/mm3 (0.00-0.031); Immature Granulocyte Percent A 0.8 % (0-0.5); Immature Platelet Fraction Pct 7.6 % (0.9-11.2); Lymphocytes Absolute Auto 0.91 K/mm3 (0.9-3.2); Lymphocytes Percent Auto 11.4 % (18.3-44.2); Mean Corpuscular HGB Conc 34.7 g/dl (32-36); Mean Corpuscular Hemoglobin 34.9 pg (26-34); Mean Corpuscular Volume 100.4 fl (80-100); Mean Platelet Volume 11.2 fl (7.4-10.4); Monocytes Absolute Auto 1.2 K/mm3 (0.1-0.6); Monocytes Percent Auto 15.2 % (2.6-8.5); Neutrophils Absolute Auto 5.6 K/mm3 (1.3-6.7); Neutrophils Percent Auto 70.8 % (45.5-73.1); Platelet Count Result 60 k/mm3 (150-375); Red Blood Count 2.41 M/mm3 (4.6-6.20); Red Cell Distribution Width 15.9 % (11.5-14.5)
[2021-12-16 07:37] LABS: Alanine Aminotransferase 20 U/L (4-50); Albumin Level 3.8 g/dL (3.5-5.1); Alkaline Phosphatase 56 U/L (38-126); Anion Gap 9 mmol/L (8-16); Aspartate Amino Transferase 33 U/L (17-59); Bilirubin,Total 4.9 mg/dL (0.2-1.3); Blood Urea Nitrogen 20 mg/dL (9-20); Calcium 9.1 mg/dL (8.4-10.2); Carbon Dioxide 24 mmol/L (22-30); Chloride 98 mmol/L (98-107); Estimated CRCL calculation 58 ml/min; Estimated Glomerular Filt Rate > 60; Glucose 89 mg/dL (65-110); Magnesium 1.8 mg/dL (1.6-2.3); Potassium 4.3 mmol/L (3.4-5.0); Sodium 131 mmol/L (137-145)
[2021-12-16] MEDS: PANTOPRAZOLE 40 MG TABLET PO ×2 (08:29→16:59)
[2021-12-16] MEDS: SPIRONOLACTONE 50 MG TABLET 100 MG PO ×2 (08:30→16:59)
[2021-12-16] MEDS: allopurinoL 300 MG TABLET PO (08:30)
[2021-12-16] MEDS: MIDODRINE HCL 2.5 MG TABLET PO ×3 (08:56→16:59)
--- NOTE | 2021-12-16 09:30 | PM.IMPN ---
Progress Note: A&P Assessment and Plan (1) Pneumonia: Qualifiers: Laterality: unspecified laterality Lung location: lower lobe of lung Pneumonia type: due to unspecified organism Qualified Code(s): J18.9 - Pneumonia, unspecified organism Code(s): J18.9 - Pneumonia, unspecified organism Status: Acute Assessment and Plan: Chest xray shows Small amount of bibasilar linear opacity likely subsegmental atelectasis. CT shows Right lower lobe posterior segmental endobronchial debris and opacity most likely subsegmental pneumonia. WBC is slightly elevated at 12.5 upon admission, Current WBC is 8.0 Continue ceftriaxone and azithromycin, change antibiotics to PO Augmnentin Blood culture NGTD Trend labs Adjust therapy as indicated (2) Hyperbilirubinemia: Code(s): E80.6 - Other disorders of bilirubin metabolism Status: Acute Assessment and Plan: Bilirubin elevated at 4.9 today trending down Secondary to the cirrhosis Probably causing him the jaundice Ammonia was elevated on arrival Continue to trend (3) Chronic liver disease and cirrhosis: Code(s): K74.60 - Unspecified cirrhosis of liver; K76.9 - Liver disease, unspecified Status: Acute Assessment and Plan: CT showed cirrhosis with portal hypertension AFP still pending 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 Coagulopathy monitor INR GI consulted thank you for your help (4) Edema: Qualifiers: Edema type: localized Qualified Code(s): R60.0 - Localized edema Code(s): R60.9 - Edema, unspecified Status: Acute Assessment and Plan: Lower extremity edema 4+ venous duplex however likely due to lying cirrhosis Echo EF 60-65%, normal diastolic dysfunction Does not look to be due to heart failure Spironolactone started will monitor BP if BP remains stable will restart lasix (5) Hypotension: Code(s): I95.9 - Hypotension, unspecified Status: Acute Assessment and Plan: BP noted 78/56 in the ED Current BP is 90/46 albumin ordered Q6hr Added midodrine 2.5mg PO TID, titrate as appropiate Echocardiogram EF 60-65%, normal diastolic dysfunction Trend labs and vital signs Monitor BP as he is getting spironolactone If BP stays elevated will add Lasix (6) Ascites: Qualifiers: Ascites type: other type Qualified Code(s): R18.8 - Other ascites Code(s): R18.8 - Other ascites Status: Acute Assessment and Plan: CT abd showed moderate to severe ascites Secondary to cirrhosis Paracentesis ordered and took off 3100ml (12/13/21) Start on spironolactone 100mg PO BID Labs did not grow any organisms or had any notable WBC Pathology did not identify any malignant cells GI on board (7) Esophageal varices: Code(s): I85.00 - Esophageal varices without bleeding Status: Acute Assessment and Plan: History of versus status post banding last in 05/2021 Recent EGD 11/16/2021 with small grade 1 varices in distal esophagus GI on board (8) GERD (gastroesophageal reflux disease): Code(s): K21.9 - Gastro-esophageal reflux disease without esophagitis Status: Acute Assessment and Plan: Continue home medications (9) Gout: Code(s): M10.9 - Gout, unspecified Status: Inactive Assessment and Plan: Continue home medications (10) Transaminitis: Code(s): R74.01 - Elevation of levels of liver transaminase levels Status: Acute Assessment and Plan: AST/ALT 33/20, Alk Phos 56 Trend labs Related to cirrhosis Ultrasound shows cirrhosis with moderate ascites, limited flow of the portal vein with directional flow Time Spent With Patient Time with patient: Greater than 35 minutes Subjective Date/time seen: 12/16/21 0930 Interval history
--- NOTE | 2021-12-16 09:30 | P.PNIM_ITS ---
Progress Note: A&P Assessment and Plan (1) Pneumonia: Qualifiers: Laterality: unspecified laterality Lung location: lower lobe of lung Pneumonia type: due to unspecified organism Qualified Code(s): J18.9 - Pneumonia, unspecified organism Code(s): J18.9 - Pneumonia, unspecified organism Status: Acute Assessment and Plan: * Chest xray shows Small amount of bibasilar linear opacity likely subsegmental atelectasis. * CT shows Right lower lobe posterior segmental endobronchial debris and opacity most likely subsegmental pneumonia. * WBC is slightly elevated at 12.5 upon admission, Current WBC is 8.0 * Continue ceftriaxone and azithromycin, change antibiotics to PO Augmnentin * Blood culture NGTD * Trend labs * Adjust therapy as indicated (2) Hyperbilirubinemia: Code(s): E80.6 - Other disorders of bilirubin metabolism Status: Acute Assessment and Plan: * Bilirubin elevated at 4.9 today trending down * Secondary to the cirrhosis * Probably causing him the jaundice * Ammonia was elevated on arrival * Continue to trend (3) Chronic liver disease and cirrhosis: Code(s): K74.60 - Unspecified cirrhosis of liver; K76.9 - Liver disease, unspecified Status: Acute Assessment and Plan: * CT showed cirrhosis with portal hypertension * AFP still pending * Cryptogenic cirrhosis * no history of alcohol or hepatitis * Coagulopathy monitor INR * GI consulted thank you for your help (4) Edema: Qualifiers: Edema type: localized Qualified Code(s): R60.0 - Localized edema Code(s): R60.9 - Edema, unspecified Status: Acute Assessment and Plan: * Lower extremity edema 4+ * venous duplex however likely due to lying cirrhosis * Echo EF 60-65%, normal diastolic dysfunction * Does not look to be due to heart failure * Spironolactone started will monitor BP if BP remains stable will restart lasix (5) Hypotension: Code(s): I95.9 - Hypotension, unspecified Status: Acute Assessment and Plan: * BP noted 78/56 in the ED * Current BP is 90/46 * albumin ordered Q6hr * Added midodrine 2.5mg PO TID, titrate as appropiate * Echocardiogram EF 60-65%, normal diastolic dysfunction * Trend labs and vital signs * Monitor BP as he is getting spironolactone * If BP stays elevated will add Lasix (6) Ascites: Qualifiers: Ascites type: other type Qualified Code(s): R18.8 - Other ascites Code(s): R18.8 - Other ascites Status: Acute Assessment and Plan: * CT abd showed moderate to severe ascites * Secondary to cirrhosis * Paracentesis ordered and took off 3100ml (12/13/21) * Start on spironolactone 100mg PO BID * Labs did not grow any organisms or had any notable WBC * Pathology did not identify any malignant cells * GI on board (7) Esophageal varices: Code(s): I85.00 - Esophageal varices without bleeding Status: Acute Assessment and Plan: * History of versus status post banding last in 05/2021 * Recent EGD 11/16/2021 with small grade 1 varices in distal esophagus * GI on board (8) GERD (gastroesophageal reflux disease): Code(s): K21.9 - Gastro-esophageal reflux disease without esophagitis Status: Acute Assessment and Plan: * Continue home medications (9) Gout: Code(s):
[2021-12-16 14:00] VITALS: BP 106/58; PULSE 102; RESP 22; TEMP 36.1; O2SAT 94
[2021-12-16] MEDS: AMOXICILLIN/CLAVULANATE K 875-125 MG TAB 1 TABLET PO (20:38)
[2021-12-16 22:00] VITALS: BP 156/75; PULSE 77; RESP 16; TEMP 36.6; O2SAT 99
[2021-12-17] MEDS: ALBUMIN HUMAN 25% 25 GM/100 ML 100 ML IVPB (05:40)
[2021-12-17 06:00] VITALS: BP 100/59; PULSE 81; RESP 18; TEMP 36.3; O2SAT 92
[2021-12-17 06:36] LABS: Basophils Percent Auto 0.4 % (0.2-1.2); Eosinophils Absolute Auto 0.2 K/mm3 (0-0.3); Eosinophils Percent Auto 2.3 % (0-4.4); Hematocrit 23.4 % (42.0-52.0); Hemoglobin 8.5 g/dL (14.0-18.0); Immature Granulocyte Absolute 0.05 K/mm3 (0.00-0.031); Immature Granulocyte Percent A 0.6 % (0-0.5); Immature Platelet Fraction Pct 7.2 % (0.9-11.2); Lymphocytes Absolute Auto 1.18 K/mm3 (0.9-3.2); Lymphocytes Percent Auto 15.2 % (18.3-44.2); Mean Corpuscular HGB Conc 36.3 g/dl (32-36); Mean Corpuscular Hemoglobin 35.3 pg (26-34); Mean Corpuscular Volume 97.1 fl (80-100); Mean Platelet Volume 11.2 fl (7.4-10.4); Monocytes Absolute Auto 1.2 K/mm3 (0.1-0.6); Monocytes Percent Auto 15.2 % (2.6-8.5); Neutrophils Absolute Auto 5.1 K/mm3 (1.3-6.7); Neutrophils Percent Auto 66.3 % (45.5-73.1); Platelet Count Result 57 k/mm3 (150-375); Red Blood Count 2.41 M/mm3 (4.6-6.20); Red Cell Distribution Width 15.8 % (11.5-14.5); White Blood Count 7.7 K/mm3 (4.5-10.0)
[2021-12-17 06:40] LABS: Alanine Aminotransferase 18 U/L (4-50); Albumin Level 3.8 g/dL (3.5-5.1); Alkaline Phosphatase 50 U/L (38-126); Anion Gap 8 mmol/L (8-16); Aspartate Amino Transferase 28 U/L (17-59); Bilirubin,Total 4.7 mg/dL (0.2-1.3); Blood Urea Nitrogen 21 mg/dL (9-20); Calcium 9.2 mg/dL (8.4-10.2); Carbon Dioxide 24 mmol/L (22-30); Chloride 97 mmol/L (98-107); Estimated CRCL calculation 58 ml/min; Estimated Glomerular Filt Rate > 60; Glucose 89 mg/dL (65-110); Magnesium 1.9 mg/dL (1.6-2.3); Potassium 3.9 mmol/L (3.4-5.0); Sodium 129 mmol/L (137-145)
[2021-12-17] MEDS: AMOXICILLIN/CLAVULANATE K 875-125 MG TAB 1 TABLET PO ×2 (08:39→20:49)
[2021-12-17] MEDS: allopurinoL 300 MG TABLET PO (08:39)
[2021-12-17] MEDS: SPIRONOLACTONE 50 MG TABLET 100 MG PO ×2 (08:39→17:23)
[2021-12-17] MEDS: PANTOPRAZOLE 40 MG TABLET PO ×2 (08:40→17:23)
[2021-12-17] MEDS: MIDODRINE HCL 2.5 MG TABLET 5 MG PO ×3 (08:40→17:24)
--- NOTE | 2021-12-17 11:00 | PM.IMPN ---
Progress Note: A&P Assessment and Plan (1) Pneumonia: Qualifiers: Laterality: unspecified laterality Lung location: lower lobe of lung Pneumonia type: due to unspecified organism Qualified Code(s): J18.9 - Pneumonia, unspecified organism Code(s): J18.9 - Pneumonia, unspecified organism Status: Acute Assessment and Plan: Chest xray shows Small amount of bibasilar linear opacity likely subsegmental atelectasis. CT shows Right lower lobe posterior segmental endobronchial debris and opacity most likely subsegmental pneumonia. WBC is slightly elevated at 12.5 upon admission, Current WBC is 7.7 Continue ceftriaxone and azithromycin, change antibiotics to PO Augmnentin Blood culture NGTD Trend labs Adjust therapy as indicated (2) Hyperbilirubinemia: Code(s): E80.6 - Other disorders of bilirubin metabolism Status: Acute Assessment and Plan: Bilirubin elevated at 4.7 today trending down Secondary to the cirrhosis Probably causing him the jaundice Ammonia was elevated on arrival Continue to trend (3) Chronic liver disease and cirrhosis: Code(s): K74.60 - Unspecified cirrhosis of liver; K76.9 - Liver disease, unspecified Status: Acute Assessment and Plan: CT showed cirrhosis with portal hypertension AFP still pending 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 Coagulopathy monitor INR GI consulted thank you for your help (4) Edema: Qualifiers: Edema type: localized Qualified Code(s): R60.0 - Localized edema Code(s): R60.9 - Edema, unspecified Status: Acute Assessment and Plan: Lower extremity edema 4+ venous duplex however likely due to lying cirrhosis Echo EF 60-65%, normal diastolic dysfunction Does not look to be due to heart failure Spironolactone started will monitor BP if BP remains stable will restart lasix (5) Hypotension: Code(s): I95.9 - Hypotension, unspecified Status: Acute Assessment and Plan: BP noted 78/56 in the ED Current BP is 100/59 albumin ordered Q6hr, DC'd at this time Added midodrine 2.5mg PO TID, titrate as appropriate, increased to 5mg PO TID Echocardiogram EF 60-65%, normal diastolic dysfunction Trend labs and vital signs Monitor BP as he is getting spironolactone If BP stays elevated will add Lasix (6) Ascites: Qualifiers: Ascites type: other type Qualified Code(s): R18.8 - Other ascites Code(s): R18.8 - Other ascites Status: Acute Assessment and Plan: CT abd showed moderate to severe ascites Secondary to cirrhosis Paracentesis ordered and took off 3100ml (12/13/21) Start on spironolactone 100mg PO BID Labs did not grow any organisms or had any notable WBC Pathology did not identify any malignant cells GI on board Paracentesis ordered (7) Esophageal varices: Code(s): I85.00 - Esophageal varices without bleeding Status: Acute Assessment and Plan: History of versus status post banding last in 05/2021 Recent EGD 11/16/2021 with small grade 1 varices in distal esophagus GI on board (8) GERD (gastroesophageal reflux disease): Code(s): K21.9 - Gastro-esophageal reflux disease without esophagitis Status: Acute Assessment and Plan: Continue home medications (9) Gout: Code(s): M10.9 - Gout, unspecified Status: Inactive Assessment and Plan: Continue home medications (10) Transaminitis: Code(s): R74.01 - Elevation of levels of liver transaminase levels Status: Acute Assessment and Plan: AST/ALT 28/18, Alk Phos 50 Trend labs Related to cirrhosis Ultrasound shows cirrhosis with moderate ascites, limited flow of the portal vein with directional flow Time Spent With Patient Time with patient: Greater than 35 minut
--- NOTE | 2021-12-17 11:00 | P.PNIM_ITS ---
Progress Note: A&P Assessment and Plan (1) Pneumonia: Qualifiers: Laterality: unspecified laterality Lung location: lower lobe of lung Pneumonia type: due to unspecified organism Qualified Code(s): J18.9 - Pneumonia, unspecified organism Code(s): J18.9 - Pneumonia, unspecified organism Status: Acute Assessment and Plan: * Chest xray shows Small amount of bibasilar linear opacity likely subsegmental atelectasis. * CT shows Right lower lobe posterior segmental endobronchial debris and opacity most likely subsegmental pneumonia. * WBC is slightly elevated at 12.5 upon admission, Current WBC is 7.7 * Continue ceftriaxone and azithromycin, change antibiotics to PO Augmnentin * Blood culture NGTD * Trend labs * Adjust therapy as indicated (2) Hyperbilirubinemia: Code(s): E80.6 - Other disorders of bilirubin metabolism Status: Acute Assessment and Plan: * Bilirubin elevated at 4.7 today trending down * Secondary to the cirrhosis * Probably causing him the jaundice * Ammonia was elevated on arrival * Continue to trend (3) Chronic liver disease and cirrhosis: Code(s): K74.60 - Unspecified cirrhosis of liver; K76.9 - Liver disease, unspecified Status: Acute Assessment and Plan: * CT showed cirrhosis with portal hypertension * AFP still pending * Cryptogenic cirrhosis * no history of alcohol or hepatitis * Coagulopathy monitor INR * GI consulted thank you for your help (4) Edema: Qualifiers: Edema type: localized Qualified Code(s): R60.0 - Localized edema Code(s): R60.9 - Edema, unspecified Status: Acute Assessment and Plan: * Lower extremity edema 4+ * venous duplex however likely due to lying cirrhosis * Echo EF 60-65%, normal diastolic dysfunction * Does not look to be due to heart failure * Spironolactone started will monitor BP if BP remains stable will restart lasix (5) Hypotension: Code(s): I95.9 - Hypotension, unspecified Status: Acute Assessment and Plan: * BP noted 78/56 in the ED * Current BP is 100/59 * albumin ordered Q6hr, DC'd at this time * Added midodrine 2.5mg PO TID, titrate as appropriate, increased to 5mg PO TID * Echocardiogram EF 60-65%, normal diastolic dysfunction * Trend labs and vital signs * Monitor BP as he is getting spironolactone * If BP stays elevated will add Lasix (6) Ascites: Qualifiers: Ascites type: other type Qualified Code(s): R18.8 - Other ascites Code(s): R18.8 - Other ascites Status: Acute Assessment and Plan: * CT abd showed moderate to severe ascites * Secondary to cirrhosis * Paracentesis ordered and took off 3100ml (12/13/21) * Start on spironolactone 100mg PO BID * Labs did not grow any organisms or had any notable WBC * Pathology did not identify any malignant cells * GI on board * Paracentesis ordered (7) Esophageal varices: Code(s): I85.00 - Esophageal varices without bleeding Status: Acute Assessment and Plan: * History of versus status post banding last in 05/2021 * Recent EGD 11/16/2021 with small grade 1 varices in distal esophagus * GI on board (8) GERD (gastroesophageal reflux disease): Code(s): K21.9 - Gastro-esophageal reflux disease without esophagitis Status: Acute Assessment and Plan: * Continue home medications
[2021-12-17 12:47] LABS: INR 2.6; Prothrombin Time 26.9 Seconds (11.1-14.7)
[2021-12-17 14:00] VITALS: BP 94/46; PULSE 79; RESP 18; TEMP 36; O2SAT 96
[2021-12-17 22:00] VITALS: BP 93/51; PULSE 79; RESP 16; TEMP 36.1; O2SAT 96
[2021-12-18] VITALS (7 sets, daily range): BP systolic 74–114; BP diastolic 49–62; PULSE 62–109; RESP 16–21; TEMP 36.1–36.2; O2SAT 92–97
--- NOTE | 2021-12-18 07:27 | WPDGIPROGNO ---
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 There is not a history of excessive alcohol use or hepatitis B or C. He has been previously investigated by Dr. juárez. As I told him, at this point the etiology is not an issue because he is at end-stage liver disease because his ferritin level is elevated and iron saturation 77%, is very possible that hemochromatosis is a factor in his liver disease. At this point of course it is not important (2) Hypotension: Code(s): I95.9 - Hypotension, unspecified Status: Acute Assessment and Plan: Blood pressure in the office was 78/56. He was also hypotensive on presentation to the emergency room. He was given a fluid bolus of 500 mL normal saline. There was a delicate balance between using diuretics to control his ascites and edema verses his blood pressure. He is now receiving albumin which should help in that regard. 12/14 his blood pressure is still low today. (3) Dehydration: Code(s): E86.0 - Dehydration Status: Acute Assessment and Plan: blood pressure was low on arrival and yesterday in the office. After fluid bolus his pressure is better. It is going to be [place] areas trying to balance his blood pressure verses diuretics. (4) Esophageal varices: Code(s): I85.00 - Esophageal varices without bleeding Status: Acute Assessment and Plan: 12/15 he has been on propanolol but we will hold that today until we are sure that his blood pressure is not soft after paracentesis 12/18 will start him on propanolol today and also Lasix 40 mg. Hopefully this will not cause is pressure to be in the lower (5) Ascites: Qualifiers: Ascites type: other type Qualified Code(s): R18.8 - Other ascites Code(s): R18.8 - Other ascites Status: Acute Assessment and Plan: I had started him on furosemide 40 mg daily in addition to spironolactone 100 mg per day. In the past year his weight has fluctuated between 98 and 102 kg, mostly around 100 kg. The 102 kg was last May today his weight is 92.7 kg despite his weight loss, he still has significant ascites and marked extremity edema. He had not yet had a paracentesis. Insurance was slow to give approval and he actually had been scheduled to have paracentesis next week as an outpatient. I discussed this with Gamal Ramos he will have diagnostic paracentesis this morning. 12/14 Paracentesis was tolerated well. Surprisingly his weight did not change, he was still 98 kg the following morning but now his weight is down to 93.4 kg 12/18 Lasix added today to the Aldactone which she is already receiving. (6) Pneumonia: Qualifiers: Laterality: unspecified laterality Lung location: lower lobe of lung Pneumonia type: due to unspecified organism Qualified Code(s): J18.9 - Pneumonia, unspecified organism Code(s): J18.9 - Pneumonia, unspecified organism Status: Acute Assessment and Plan: bilateral linear changes in bases of both lungs, possible pneumonia . Antibiotics have been started. CT suggests right lower lobe pneumonia (7) Generalized weakness: Code(s): R53.1 - Weakness Status: Acute Assessment and Plan: he acknowledges that he should not be living alone. His son is very close to this hospital. He is going to talk to his son today about perhaps moving in with him. 12/18 I suspect that he is not going to be able to function well at home. Definitely not alone. He may need to be in an extended care facility Subjective Date/time seen: 12/15 Today he is out of bed, eating. He states that he feels better than Any of the previous several days. His legs do not feel is heavy. He has lost about 10
[2021-12-18 08:13] LABS: Alanine Aminotransferase 19 U/L (4-50); Albumin Level 3.4 g/dL (3.5-5.1); Alkaline Phosphatase 48 U/L (38-126); Anion Gap 7 mmol/L (8-16); Aspartate Amino Transferase 32 U/L (17-59); Bilirubin,Total 5.6 mg/dL (0.2-1.3); Blood Urea Nitrogen 18 mg/dL (9-20); Calcium 9.2 mg/dL (8.4-10.2); Carbon Dioxide 25 mmol/L (22-30); Chloride 100 mmol/L (98-107); Estimated CRCL calculation 72 ml/min; Estimated Glomerular Filt Rate > 60; Glucose 84 mg/dL (65-110); Magnesium 1.8 mg/dL (1.6-2.3); Potassium 4.5 mmol/L (3.4-5.0); Sodium 132 mmol/L (137-145)
[2021-12-18 08:21] LABS: Basophils Percent Auto 0.5 % (0.2-1.2); Eosinophils Absolute Auto 0.2 K/mm3 (0-0.3); Eosinophils Percent Auto 2.5 % (0-4.4); Hematocrit 27.1 % (42.0-52.0); Hemoglobin 9.8 g/dL (14.0-18.0); Immature Granulocyte Absolute 0.04 K/mm3 (0.00-0.031); Immature Granulocyte Percent A 0.6 % (0-0.5); Immature Platelet Fraction Pct 6.4 % (0.9-11.2); Lymphocytes Absolute Auto 1.15 K/mm3 (0.9-3.2); Lymphocytes Percent Auto 17.8 % (18.3-44.2); Mean Corpuscular HGB Conc 36.2 g/dl (32-36); Mean Corpuscular Hemoglobin 35.5 pg (26-34); Mean Corpuscular Volume 98.2 fl (80-100); Mean Platelet Volume 11.2 fl (7.4-10.4); Monocytes Absolute Auto 0.9 K/mm3 (0.1-0.6); Monocytes Percent Auto 14.6 % (2.6-8.5); Neutrophils Absolute Auto 4.1 K/mm3 (1.3-6.7); Platelet Count Result 69 k/mm3 (150-375); Red Blood Count 2.76 M/mm3 (4.6-6.20); Red Cell Distribution Width 16.3 % (11.5-14.5); White Blood Count 6.5 K/mm3 (4.5-10.0)
[2021-12-18] MEDS: PANTOPRAZOLE 40 MG TABLET PO ×2 (08:24→16:24)
[2021-12-18] MEDS: allopurinoL 300 MG TABLET PO (08:24)
[2021-12-18] MEDS: MIDODRINE HCL 10 MG TABLET PO ×3 (08:24→16:24)
[2021-12-18] MEDS: SPIRONOLACTONE 50 MG TABLET 100 MG PO ×2 (08:24→16:24)
[2021-12-18] MEDS: AMOXICILLIN/CLAVULANATE K 875-125 MG TAB 1 TABLET PO ×2 (08:24→20:26)
[2021-12-18] MEDS: FUROSEMIDE 40 MG TABLET PO (08:47)
--- NOTE | 2021-12-18 09:45 | P.PNIM_ITS ---
Progress Note: A&P Assessment and Plan (1) Pneumonia: Qualifiers: Laterality: unspecified laterality Lung location: lower lobe of lung Pneumonia type: due to unspecified organism Qualified Code(s): J18.9 - Pneumonia, unspecified organism Code(s): J18.9 - Pneumonia, unspecified organism Status: Acute Assessment and Plan: * Chest xray shows Small amount of bibasilar linear opacity likely subsegmental atelectasis. * CT shows Right lower lobe posterior segmental endobronchial debris and opacity most likely subsegmental pneumonia. * WBC is slightly elevated at 12.5 upon admission, Current WBC is 6.5 * Continue ceftriaxone and azithromycin, change antibiotics to PO Augmentin * Repeat chest xray in the am * Blood culture NGTD * Trend labs * Adjust therapy as indicated (2) Hyperbilirubinemia: Code(s): E80.6 - Other disorders of bilirubin metabolism Status: Acute Assessment and Plan: * Bilirubin elevated at 4.7 today trending down * Secondary to the cirrhosis * Probably causing him the jaundice * Ammonia was elevated on arrival * Continue to trend (3) Chronic liver disease and cirrhosis: Code(s): K74.60 - Unspecified cirrhosis of liver; K76.9 - Liver disease, unspecified Status: Acute Assessment and Plan: * CT showed cirrhosis with portal hypertension * AFP still pending * Cryptogenic cirrhosis * no history of alcohol or hepatitis * Coagulopathy monitor INR * GI consulted thank you for your help (4) Edema: Qualifiers: Edema type: localized Qualified Code(s): R60.0 - Localized edema Code(s): R60.9 - Edema, unspecified Status: Acute Assessment and Plan: * Lower extremity edema 4+ * venous duplex however likely due to lying cirrhosis * Echo EF 60-65%, normal diastolic dysfunction * Does not look to be due to heart failure * Spironolactone started will monitor BP * Restarted lasix (5) Hypotension: Code(s): I95.9 - Hypotension, unspecified Status: Acute Assessment and Plan: * BP noted 78/56 in the ED * Current BP is 90/60 * albumin ordered Q6hr, DC'd at this time * Added midodrine 2.5mg PO TID, titrate as appropriate, increased to 10mg PO TID * Echocardiogram EF 60-65%, normal diastolic dysfunction * Trend labs and vital signs * Monitor BP as he is getting spironolactone * If BP stays elevated will add Lasix (6) Ascites: Qualifiers: Ascites type: other type Qualified Code(s): R18.8 - Other ascites Code(s): R18.8 - Other ascites Status: Acute Assessment and Plan: * CT abd showed moderate to severe ascites * Secondary to cirrhosis * Paracentesis ordered and took off 3100ml (12/13/21), repeat paracentesis took off 1475ml * Start on spironolactone 100mg PO BID * Labs did not grow any organisms or had any notable WBC * Pathology did not identify any malignant cells * GI on board * Will need PRN paracentesis on discharge (7) Esophageal varices: Code(s): I85.00 - Esophageal varices without bleeding Status: Acute Assessment and Plan: * History of versus status post banding last in 05/2021 * Recent EGD 11/16/2021 with small grade 1 varices in distal esophagus * GI on board (8) GERD (gastroesophageal reflux disease): Code(s): K21.9 - Gastro-esophageal reflux disease without esophagitis St
--- NOTE | 2021-12-18 09:45 | PM.IMPN ---
Progress Note: A&P Assessment and Plan (1) Pneumonia: Qualifiers: Laterality: unspecified laterality Lung location: lower lobe of lung Pneumonia type: due to unspecified organism Qualified Code(s): J18.9 - Pneumonia, unspecified organism Code(s): J18.9 - Pneumonia, unspecified organism Status: Acute Assessment and Plan: Chest xray shows Small amount of bibasilar linear opacity likely subsegmental atelectasis. CT shows Right lower lobe posterior segmental endobronchial debris and opacity most likely subsegmental pneumonia. WBC is slightly elevated at 12.5 upon admission, Current WBC is 6.5 Continue ceftriaxone and azithromycin, change antibiotics to PO Augmentin Repeat chest xray in the am Blood culture NGTD Trend labs Adjust therapy as indicated (2) Hyperbilirubinemia: Code(s): E80.6 - Other disorders of bilirubin metabolism Status: Acute Assessment and Plan: Bilirubin elevated at 4.7 today trending down Secondary to the cirrhosis Probably causing him the jaundice Ammonia was elevated on arrival Continue to trend (3) Chronic liver disease and cirrhosis: Code(s): K74.60 - Unspecified cirrhosis of liver; K76.9 - Liver disease, unspecified Status: Acute Assessment and Plan: CT showed cirrhosis with portal hypertension AFP still pending 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 Coagulopathy monitor INR GI consulted thank you for your help (4) Edema: Qualifiers: Edema type: localized Qualified Code(s): R60.0 - Localized edema Code(s): R60.9 - Edema, unspecified Status: Acute Assessment and Plan: Lower extremity edema 4+ venous duplex however likely due to lying cirrhosis Echo EF 60-65%, normal diastolic dysfunction Does not look to be due to heart failure Spironolactone started will monitor BP Restarted lasix (5) Hypotension: Code(s): I95.9 - Hypotension, unspecified Status: Acute Assessment and Plan: BP noted 78/56 in the ED Current BP is 90/60 albumin ordered Q6hr, DC'd at this time Added midodrine 2.5mg PO TID, titrate as appropriate, increased to 10mg PO TID Echocardiogram EF 60-65%, normal diastolic dysfunction Trend labs and vital signs Monitor BP as he is getting spironolactone If BP stays elevated will add Lasix (6) Ascites: Qualifiers: Ascites type: other type Qualified Code(s): R18.8 - Other ascites Code(s): R18.8 - Other ascites Status: Acute Assessment and Plan: CT abd showed moderate to severe ascites Secondary to cirrhosis Paracentesis ordered and took off 3100ml (12/13/21), repeat paracentesis took off 1475ml Start on spironolactone 100mg PO BID Labs did not grow any organisms or had any notable WBC Pathology did not identify any malignant cells GI on board Will need PRN paracentesis on discharge (7) Esophageal varices: Code(s): I85.00 - Esophageal varices without bleeding Status: Acute Assessment and Plan: History of versus status post banding last in 05/2021 Recent EGD 11/16/2021 with small grade 1 varices in distal esophagus GI on board (8) GERD (gastroesophageal reflux disease): Code(s): K21.9 - Gastro-esophageal reflux disease without esophagitis Status: Acute Assessment and Plan: Continue home medications (9) Gout: Code(s): M10.9 - Gout, unspecified Status: Inactive Assessment and Plan: Continue home medications (10) Transaminitis: Code(s): R74.01 - Elevation of levels of liver transaminase levels Status: Acute Assessment and Plan: AST/ALT 32/19, Alk Phos 48 Trend labs Related to cirrhosis Ultrasound shows cirrhosis with moderate ascites, limited flow of the portal vein with directional flow T
--- NOTE | 2021-12-18 11:01 | PC.NURSE ---
LLE blister appears poped, xeroform and gauze and medipore tape ordered, Lucy from wounds informed. MD Ramos stated wound consult.
[2021-12-18 18:27] LABS: Alpha Fetoprotein Tumor Marker 3.8 ng/mL (<6.1)
[2021-12-19] VITALS (9 sets, daily range): BP systolic 90–100; BP diastolic 50–60; PULSE 60–82; RESP 16–18; TEMP 36.1–36.6; O2SAT 91–97
[2021-12-19 06:36] LABS: Basophils Percent Auto 0.5 % (0.2-1.2); Eosinophils Absolute Auto 0.2 K/mm3 (0-0.3); Hematocrit 27.2 % (42.0-52.0); Hemoglobin 9.8 g/dL (14.0-18.0); Immature Granulocyte Absolute 0.03 K/mm3 (0.00-0.031); Immature Granulocyte Percent A 0.5 % (0-0.5); Immature Platelet Fraction Pct 5.8 % (0.9-11.2); Lymphocytes Absolute Auto 1.43 K/mm3 (0.9-3.2); Lymphocytes Percent Auto 22.6 % (18.3-44.2); Monocytes Percent Auto 15.8 % (2.6-8.5); Neutrophils Absolute Auto 3.7 K/mm3 (1.3-6.7); Neutrophils Percent Auto 57.6 % (45.5-73.1); Platelet Count Result 80 k/mm3 (150-375); Red Blood Count 2.72 M/mm3 (4.6-6.20); Red Cell Distribution Width 16.7 % (11.5-14.5); White Blood Count 6.3 K/mm3 (4.5-10.0)
[2021-12-19 06:58] LABS: Alanine Aminotransferase 19 U/L (4-50); Albumin Level 3.1 g/dL (3.5-5.1); Alkaline Phosphatase 54 U/L (38-126); Anion Gap 8 mmol/L (8-16); Aspartate Amino Transferase 38 U/L (17-59); Bilirubin,Total 4.6 mg/dL (0.2-1.3); Blood Urea Nitrogen 19 mg/dL (9-20); Calcium 8.6 mg/dL (8.4-10.2); Carbon Dioxide 24 mmol/L (22-30); Chloride 101 mmol/L (98-107); Estimated CRCL calculation 72 ml/min; Estimated Glomerular Filt Rate > 60; Glucose 81 mg/dL (65-110); Magnesium 1.7 mg/dL (1.6-2.3); Potassium 4.3 mmol/L (3.4-5.0); Sodium 133 mmol/L (137-145)
--- NOTE | 2021-12-19 07:16 | WPDGIPROGNO ---
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 There is not a history of excessive alcohol use or hepatitis B or C. He has been previously investigated by Dr. juárez. As I told him, at this point the etiology is not an issue because he is at end-stage liver disease because his ferritin level is elevated and iron saturation 77%, is very possible that hemochromatosis is a factor in his liver disease. At this point of course it is not important (2) Hypotension: Code(s): I95.9 - Hypotension, unspecified Status: Acute Assessment and Plan: Blood pressure in the office was 78/56. He was also hypotensive on presentation to the emergency room. He was given a fluid bolus of 500 mL normal saline. There was a delicate balance between using diuretics to control his ascites and edema verses his blood pressure. He is now receiving albumin which should help in that regard. 12/14 his blood pressure is still low today. (3) Dehydration: Code(s): E86.0 - Dehydration Status: Acute Assessment and Plan: blood pressure was low on arrival and yesterday in the office. After fluid bolus his pressure is better. It is going to be [place] areas trying to balance his blood pressure verses diuretics. (4) Esophageal varices: Code(s): I85.00 - Esophageal varices without bleeding Status: Acute Assessment and Plan: 12/15 he has been on propanolol but we will hold that today until we are sure that his blood pressure is not soft after paracentesis 12/18 will start him on propanolol today and also Lasix 40 mg. Hopefully this will not cause a symptomatic drop in blood pressure. (5) Ascites: Qualifiers: Ascites type: other type Qualified Code(s): R18.8 - Other ascites Code(s): R18.8 - Other ascites Status: Acute Assessment and Plan: I had started him on furosemide 40 mg daily in addition to spironolactone 100 mg per day. In the past year his weight has fluctuated between 98 and 102 kg, mostly around 100 kg. The 102 kg was last May today his weight is 92.7 kg despite his weight loss, he still has significant ascites and marked extremity edema. He had not yet had a paracentesis. Insurance was slow to give approval and he actually had been scheduled to have paracentesis next week as an outpatient. I discussed this with Gamal Ramos he will have diagnostic paracentesis this morning. 12/14 Paracentesis was tolerated well. Surprisingly his weight did not change, he was still 98 kg the following morning but now his weight is down to 93.4 kg 12/18 Lasix added today to the Aldactone which she is already receiving. (6) Pneumonia: Qualifiers: Laterality: unspecified laterality Lung location: lower lobe of lung Pneumonia type: due to unspecified organism Qualified Code(s): J18.9 - Pneumonia, unspecified organism Code(s): J18.9 - Pneumonia, unspecified organism Status: Acute Assessment and Plan: bilateral linear changes in bases of both lungs, possible pneumonia . Antibiotics have been started. CT suggests right lower lobe pneumonia he is currently on oral antibiotics and therefore could be discharged (7) Generalized weakness: Code(s): R53.1 - Weakness Status: Acute Assessment and Plan: he acknowledges that he should not be living alone. His son is very close to this hospital. He is going to talk to his son today about perhaps moving in with him. 12/18 I suspect that he is not going to be able to function well at home. Definitely not alone. He may need to be in an extended care facility 12/19 I will talk to his son today. We need to come up with a plan regarding disposition. I did just get off t
[2021-12-19 07:37] LABS: Ammonia < 9 umol/L (9-30)
[2021-12-19] MEDS: MIDODRINE HCL 10 MG TABLET PO ×3 (08:07→16:32)
[2021-12-19] MEDS: SPIRONOLACTONE 50 MG TABLET 100 MG PO ×2 (08:07→16:32)
[2021-12-19] MEDS: PANTOPRAZOLE 40 MG TABLET PO ×2 (08:07→16:32)
[2021-12-19] MEDS: FUROSEMIDE 40 MG TABLET PO (08:08)
[2021-12-19] MEDS: AMOXICILLIN/CLAVULANATE K 875-125 MG TAB 1 TABLET PO ×2 (08:08→20:01)
[2021-12-19] MEDS: allopurinoL 300 MG TABLET PO (08:08)
--- NOTE | 2021-12-19 08:15 | P.PNIM_ITS ---
Progress Note: A&P Assessment and Plan (1) Pneumonia: Qualifiers: Laterality: unspecified laterality Lung location: lower lobe of lung Pneumonia type: due to unspecified organism Qualified Code(s): J18.9 - Pneumonia, unspecified organism Code(s): J18.9 - Pneumonia, unspecified organism Status: Acute Assessment and Plan: * Chest xray shows Small amount of bibasilar linear opacity likely subsegmental atelectasis. * CT shows Right lower lobe posterior segmental endobronchial debris and opacity most likely subsegmental pneumonia. * WBC is slightly elevated at 12.5 upon admission, Current WBC is 5.8 * Continue ceftriaxone and azithromycin, change antibiotics to PO Augmentin * Repeat chest xray in the am * Blood culture NGTD * Trend labs * Adjust therapy as indicated (2) Hyperbilirubinemia: Code(s): E80.6 - Other disorders of bilirubin metabolism Status: Acute Assessment and Plan: * Bilirubin elevated at 4.6 today trending down * Secondary to the cirrhosis * Probably causing him the jaundice * Ammonia was elevated on arrival * Continue to trend (3) Chronic liver disease and cirrhosis: Code(s): K74.60 - Unspecified cirrhosis of liver; K76.9 - Liver disease, unspecified Status: Acute Assessment and Plan: * CT showed cirrhosis with portal hypertension * AFP still pending * Cryptogenic cirrhosis * no history of alcohol or hepatitis * Coagulopathy monitor INR * GI consulted thank you for your help (4) Edema: Qualifiers: Edema type: localized Qualified Code(s): R60.0 - Localized edema Code(s): R60.9 - Edema, unspecified Status: Acute Assessment and Plan: * Lower extremity edema 4+ * venous duplex however likely due to lying cirrhosis * Echo EF 60-65%, normal diastolic dysfunction * Does not look to be due to heart failure * Spironolactone started will monitor BP * Restarted lasix (5) Hypotension: Code(s): I95.9 - Hypotension, unspecified Status: Acute Assessment and Plan: * BP noted 78/56 in the ED * Current BP is 90/50 * albumin ordered Q6hr, DC'd at this time * Added midodrine 2.5mg PO TID, titrate as appropriate, increased to 10mg PO TID * Echocardiogram EF 60-65%, normal diastolic dysfunction * Trend labs and vital signs * Monitor BP as he is getting spironolactone * If BP stays elevated will add Lasix (6) Ascites: Qualifiers: Ascites type: other type Qualified Code(s): R18.8 - Other ascites Code(s): R18.8 - Other ascites Status: Acute Assessment and Plan: * CT abd showed moderate to severe ascites * Secondary to cirrhosis * Paracentesis ordered and took off 3100ml (12/13/21), repeat paracentesis took off 1475ml * Start on spironolactone 100mg PO BID * Labs did not grow any organisms or had any notable WBC * Pathology did not identify any malignant cells * GI on board * Will need PRN paracentesis on discharge (7) Esophageal varices: Code(s): I85.00 - Esophageal varices without bleeding Status: Acute Assessment and Plan: * History of versus status post banding last in 05/2021 * Recent EGD 11/16/2021 with small grade 1 varices in distal esophagus * GI on board (8) GERD (gastroesophageal reflux disease): Code(s): K21.9 - Gastro-esophageal reflux disease without esophagitis St
--- NOTE | 2021-12-19 08:15 | PM.IMPN ---
Progress Note: A&P Assessment and Plan (1) Pneumonia: Qualifiers: Laterality: unspecified laterality Lung location: lower lobe of lung Pneumonia type: due to unspecified organism Qualified Code(s): J18.9 - Pneumonia, unspecified organism Code(s): J18.9 - Pneumonia, unspecified organism Status: Acute Assessment and Plan: Chest xray shows Small amount of bibasilar linear opacity likely subsegmental atelectasis. CT shows Right lower lobe posterior segmental endobronchial debris and opacity most likely subsegmental pneumonia. WBC is slightly elevated at 12.5 upon admission, Current WBC is 5.8 Continue ceftriaxone and azithromycin, change antibiotics to PO Augmentin Repeat chest xray in the am Blood culture NGTD Trend labs Adjust therapy as indicated (2) Hyperbilirubinemia: Code(s): E80.6 - Other disorders of bilirubin metabolism Status: Acute Assessment and Plan: Bilirubin elevated at 4.6 today trending down Secondary to the cirrhosis Probably causing him the jaundice Ammonia was elevated on arrival Continue to trend (3) Chronic liver disease and cirrhosis: Code(s): K74.60 - Unspecified cirrhosis of liver; K76.9 - Liver disease, unspecified Status: Acute Assessment and Plan: CT showed cirrhosis with portal hypertension AFP still pending 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 Coagulopathy monitor INR GI consulted thank you for your help (4) Edema: Qualifiers: Edema type: localized Qualified Code(s): R60.0 - Localized edema Code(s): R60.9 - Edema, unspecified Status: Acute Assessment and Plan: Lower extremity edema 4+ venous duplex however likely due to lying cirrhosis Echo EF 60-65%, normal diastolic dysfunction Does not look to be due to heart failure Spironolactone started will monitor BP Restarted lasix (5) Hypotension: Code(s): I95.9 - Hypotension, unspecified Status: Acute Assessment and Plan: BP noted 78/56 in the ED Current BP is 90/50 albumin ordered Q6hr, DC'd at this time Added midodrine 2.5mg PO TID, titrate as appropriate, increased to 10mg PO TID Echocardiogram EF 60-65%, normal diastolic dysfunction Trend labs and vital signs Monitor BP as he is getting spironolactone If BP stays elevated will add Lasix (6) Ascites: Qualifiers: Ascites type: other type Qualified Code(s): R18.8 - Other ascites Code(s): R18.8 - Other ascites Status: Acute Assessment and Plan: CT abd showed moderate to severe ascites Secondary to cirrhosis Paracentesis ordered and took off 3100ml (12/13/21), repeat paracentesis took off 1475ml Start on spironolactone 100mg PO BID Labs did not grow any organisms or had any notable WBC Pathology did not identify any malignant cells GI on board Will need PRN paracentesis on discharge (7) Esophageal varices: Code(s): I85.00 - Esophageal varices without bleeding Status: Acute Assessment and Plan: History of versus status post banding last in 05/2021 Recent EGD 11/16/2021 with small grade 1 varices in distal esophagus GI on board (8) GERD (gastroesophageal reflux disease): Code(s): K21.9 - Gastro-esophageal reflux disease without esophagitis Status: Acute Assessment and Plan: Continue home medications (9) Gout: Code(s): M10.9 - Gout, unspecified Status: Inactive Assessment and Plan: Continue home medications (10) Transaminitis: Code(s): R74.01 - Elevation of levels of liver transaminase levels Status: Acute Assessment and Plan: AST/ALT 32/19, Alk Phos 48 Trend labs Related to cirrhosis Ultrasound shows cirrhosis with moderate ascites, limited flow of the portal vein with directional flow T
[2021-12-19] MEDS: PROPRANOLOL HCL 10 MG TABLET PO (08:33)
[2021-12-19] MEDS: MAGNESIUM SULF 2 GM/WATER 50ML 2 GM/50 ML BAG IVPB (14:52)
[2021-12-19 19:17] LABS: EDCOVIDSCREEN Negative (Negative)
[2021-12-20 06:00] VITALS: BP 99/51; PULSE 74; RESP 18; TEMP 36.2; O2SAT 93
[2021-12-20 06:39] LABS: Basophils Percent Auto 0.5 % (0.2-1.2); Eosinophils Absolute Auto 0.2 K/mm3 (0-0.3); Eosinophils Percent Auto 3.4 % (0-4.4); Hematocrit 27.4 % (42.0-52.0); Hemoglobin 9.7 g/dL (14.0-18.0); Immature Granulocyte Absolute 0.03 K/mm3 (0.00-0.031); Immature Granulocyte Percent A 0.5 % (0-0.5); Lymphocytes Absolute Auto 1.43 K/mm3 (0.9-3.2); Lymphocytes Percent Auto 25.5 % (18.3-44.2); Mean Corpuscular HGB Conc 35.4 g/dl (32-36); Mean Corpuscular Volume 98.9 fl (80-100); Mean Platelet Volume 10.7 fl (7.4-10.4); Monocytes Absolute Auto 0.9 K/mm3 (0.1-0.6); Neutrophils Percent Auto 54.1 % (45.5-73.1); Platelet Count Result 78 k/mm3 (150-375); Red Blood Count 2.77 M/mm3 (4.6-6.20); White Blood Count 5.6 K/mm3 (4.5-10.0)
[2021-12-20 06:46] LABS: Alanine Aminotransferase 19 U/L (4-50); Albumin Level 2.9 g/dL (3.5-5.1); Alkaline Phosphatase 54 U/L (38-126); Anion Gap 5 mmol/L (8-16); Aspartate Amino Transferase 38 U/L (17-59); Bilirubin,Total 4.5 mg/dL (0.2-1.3); Blood Urea Nitrogen 16 mg/dL (9-20); Calcium 8.7 mg/dL (8.4-10.2); Carbon Dioxide 24 mmol/L (22-30); Chloride 102 mmol/L (98-107); Estimated CRCL calculation 72 ml/min; Estimated Glomerular Filt Rate > 60; Glucose 78 mg/dL (65-110); Magnesium 1.8 mg/dL (1.6-2.3); Sodium 131 mmol/L (137-145)
[2021-12-20 08:00] VITALS: PULSE 73; RESP 16; O2SAT 94
[2021-12-20 08:36] VITALS: BP 118/82; PULSE 73; RESP 16; TEMP 36.1; O2SAT 94
[2021-12-20] MEDS: MAGNESIUM SULF 2 GM/WATER 50ML 2 GM/50 ML BAG IVPB (09:46)
[2021-12-20] MEDS: SPIRONOLACTONE 50 MG TABLET 100 MG PO (10:07)
[2021-12-20] MEDS: PANTOPRAZOLE 40 MG TABLET PO (10:07)
[2021-12-20] MEDS: AMOXICILLIN/CLAVULANATE K 875-125 MG TAB 1 TABLET PO (10:08)
[2021-12-20] MEDS: FUROSEMIDE 40 MG TABLET PO (10:09)
[2021-12-20] MEDS: MIDODRINE HCL 10 MG TABLET PO (10:10)
[2021-12-20 10:11] VITALS: PULSE 73
[2021-12-20] MEDS: PROPRANOLOL HCL 10 MG TABLET PO (10:11)
[2021-12-20] MEDS: allopurinoL 300 MG TABLET PO (10:12)
--- NOTE | 2021-12-20 10:30 | PM.DS ---
DS: Admitting Diagnosis Discharge Date 12/20/21 1030 Admitting Diagnosis PNA/Liver failure DS: Discharge Diagnosis Discharge Diagnosis (1) Pneumonia: Qualifiers: Laterality: unspecified laterality Lung location: lower lobe of lung Pneumonia type: due to unspecified organism Qualified Code(s): J18.9 - Pneumonia, unspecified organism Code(s): J18.9 - Pneumonia, unspecified organism Status: Acute Assessment and Plan: Chest xray shows Small amount of bibasilar linear opacity likely subsegmental atelectasis. CT shows Right lower lobe posterior segmental endobronchial debris and opacity most likely subsegmental pneumonia. WBC is slightly elevated at 12.5 upon admission, Current WBC is 5.6 Continue PO Augmentin chest xray showed bilateral pleural effusion Blood culture NGTD Trend labs Adjust therapy as indicated (2) Hyperbilirubinemia: Code(s): E80.6 - Other disorders of bilirubin metabolism Status: Acute Assessment and Plan: Bilirubin elevated at 4.5 today trending down Secondary to the cirrhosis Probably causing him the jaundice Ammonia was elevated on arrival Continue to trend (3) Chronic liver disease and cirrhosis: Code(s): K74.60 - Unspecified cirrhosis of liver; K76.9 - Liver disease, unspecified Status: Acute Assessment and Plan: CT showed cirrhosis with portal hypertension AFP 3.8 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 Coagulopathy monitor INR GI consulted thank you for your help (4) Edema: Qualifiers: Edema type: localized Qualified Code(s): R60.0 - Localized edema Code(s): R60.9 - Edema, unspecified Status: Acute Assessment and Plan: Lower extremity edema 4+ venous duplex however likely due to lying cirrhosis Echo EF 60-65%, normal diastolic dysfunction Does not look to be due to heart failure Spironolactone started will monitor BP Restarted lasix (5) Hypotension: Code(s): I95.9 - Hypotension, unspecified Status: Acute Assessment and Plan: BP noted 78/56 in the ED Current BP is 99/51 albumin ordered Q6hr, DC'd at this time Added midodrine 2.5mg PO TID, titrate as appropriate, increased to 10mg PO TID Echocardiogram EF 60-65%, normal diastolic dysfunction Trend labs and vital signs Monitor BP as he is getting spironolactone If BP stays elevated will add Lasix (6) Ascites: Qualifiers: Ascites type: other type Qualified Code(s): R18.8 - Other ascites Code(s): R18.8 - Other ascites Status: Acute Assessment and Plan: CT abd showed moderate to severe ascites Secondary to cirrhosis Paracentesis ordered and took off 3100ml (12/13/21), repeat paracentesis took off 1475ml Start on spironolactone 100mg PO BID Labs did not grow any organisms or had any notable WBC Pathology did not identify any malignant cells GI on board Will need PRN paracentesis on discharge (7) Esophageal varices: Code(s): I85.00 - Esophageal varices without bleeding Status: Acute Assessment and Plan: History of versus status post banding last in 05/2021 Recent EGD 11/16/2021 with small grade 1 varices in distal esophagus GI on board (8) GERD (gastroesophageal reflux disease): Code(s): K21.9 - Gastro-esophageal reflux disease without esophagitis Status: Acute Assessment and Plan: Continue home medications (9) Gout: Code(s): M10.9 - Gout, unspecified Status: Inactive Assessment and Plan: Continue home medications (10) Transaminitis: Code(s): R74.01 - Elevation of levels of liver transaminase levels Status: Acute Assessment and Plan: AST/ALT 38/19, Alk Phos 54 Trend labs Related to cirrhosis Ultrasound shows cirrhosis with moderate ascites, limited
--- NOTE | 2021-12-20 10:30 | P.DS_ITS ---
DS: Admitting Diagnosis Discharge Date 12/20/21 1030 Admitting Diagnosis PNA/Liver failure DS: Discharge Diagnosis Discharge Diagnosis (1) Pneumonia: Qualifiers: Laterality: unspecified laterality Lung location: lower lobe of lung Pneumonia type: due to unspecified organism Qualified Code(s): J18.9 - Pneumonia, unspecified organism Code(s): J18.9 - Pneumonia, unspecified organism Status: Acute Assessment and Plan: * Chest xray shows Small amount of bibasilar linear opacity likely subsegmental atelectasis. * CT shows Right lower lobe posterior segmental endobronchial debris and opacity most likely subsegmental pneumonia. * WBC is slightly elevated at 12.5 upon admission, Current WBC is 5.6 * Continue PO Augmentin * chest xray showed bilateral pleural effusion * Blood culture NGTD * Trend labs * Adjust therapy as indicated (2) Hyperbilirubinemia: Code(s): E80.6 - Other disorders of bilirubin metabolism Status: Acute Assessment and Plan: * Bilirubin elevated at 4.5 today trending down * Secondary to the cirrhosis * Probably causing him the jaundice * Ammonia was elevated on arrival * Continue to trend (3) Chronic liver disease and cirrhosis: Code(s): K74.60 - Unspecified cirrhosis of liver; K76.9 - Liver disease, unspecified Status: Acute Assessment and Plan: * CT showed cirrhosis with portal hypertension * AFP 3.8 * Cryptogenic cirrhosis * no history of alcohol or hepatitis * Coagulopathy monitor INR * GI consulted thank you for your help (4) Edema: Qualifiers: Edema type: localized Qualified Code(s): R60.0 - Localized edema Code(s): R60.9 - Edema, unspecified Status: Acute Assessment and Plan: * Lower extremity edema 4+ * venous duplex however likely due to lying cirrhosis * Echo EF 60-65%, normal diastolic dysfunction * Does not look to be due to heart failure * Spironolactone started will monitor BP * Restarted lasix (5) Hypotension: Code(s): I95.9 - Hypotension, unspecified Status: Acute Assessment and Plan: * BP noted 78/56 in the ED * Current BP is 99/51 * albumin ordered Q6hr, DC'd at this time * Added midodrine 2.5mg PO TID, titrate as appropriate, increased to 10mg PO TID * Echocardiogram EF 60-65%, normal diastolic dysfunction * Trend labs and vital signs * Monitor BP as he is getting spironolactone * If BP stays elevated will add Keithix (6) Ascites: Qualifiers: Ascites type: other type Qualified Code(s): R18.8 - Other ascites Code(s): R18.8 - Other ascites Status: Acute Assessment and Plan: * CT abd showed moderate to severe ascites * Secondary to cirrhosis * Paracentesis ordered and took off 3100ml (12/13/21), repeat paracentesis took off 1475ml * Start on spironolactone 100mg PO BID * Labs did not grow any organisms or had any notable WBC * Pathology did not identify any malignant cells * GI on board * Will need PRN paracentesis on discharge (7) Esophageal varices: Code(s): I85.00 - Esophageal varices without bleeding Status: Acute Assessment and Plan: * History of versus status post banding last in 05/2021 * Recent EGD 11/16/2021 with small grade 1 varices in distal esophagus * GI on board (8) GERD (gastroesophageal reflux disease): Code(s)
[2021-12-20 12:00] VITALS: PULSE 70; RESP 12
--- NOTE | 2021-12-20 12:41 | PCNWS ---
Weekly nutritional screen. Patient is tolerating current diet with adequate intake. No weight loss reported. No nutritional needs at this time. No nutritional interventions at this time. Will follow up in 7 days if pt has not been discharged.
--- NOTE | 2021-12-20 13:22 | PC.NURSE ---
On 12/20/21, the student, Dominique Sanchez, provided care and completed [facility] documentation on this patient. I have reviewed the student's documentation and agree with the findings.
== END 2021-12-20 13:10 | disposition home or self-care (01) | DRG 432 ==
LOC: ANHED 19:08 → ANHIMU 19:57 → ANH3MEDSUR 12-19 14:28 → ANHIMU 12-21 12:22
PROVIDERS: Internal Medicine Gastroenterology; Admitting Provider Internal Medicine; Emergency Provider Nurse Practitioner Family; Visit Provider Nurse Practitioner
DX: K74.69 Other cirrhosis of liver (principal); J18.9 Pneumonia, unspecified organism; I85.00 Esophageal varices without bleeding; R18.8 Other ascites; K76.6 Portal hypertension; D68.9 Coagulation defect, unspecified; Z20.822 Contact with and (suspected) exposure to COVID-19; I95.9 Hypotension, unspecified; K21.9 Gastro-esophageal reflux disease without esophagitis; M10.9 Gout, unspecified; N40.0 Benign prostatic hyperplasia without lower urinary tract symptoms; D69.59 Other secondary thrombocytopenia; E53.8 Deficiency of other specified B group vitamins; R91.1 Solitary pulmonary nodule; I10 Essential (primary) hypertension; K44.9 Diaphragmatic hernia without obstruction or gangrene; E86.0 Dehydration; Z85.828 Personal history of other malignant neoplasm of skin; Z90.49 Acquired absence of other specified parts of digestive tract
CPT/HCPCS: 36415; 49083; 71045; 71046; 74177; 76705; 80053; 81001; 82042; 82105; 82140; 82150; 82607; 82728; 82746; 82945; 83540; 83550; 83605; 83615; 83690; 83735; 83880; 84157; 84443; 84466; 84484; 85025; 85055; 85610; 85730; 87040; 87070; 87075; 87205; 87426; 88104; 88108; 88305; 89051; 93005; 93306; 93970; 96365; 96366; 96367; 97110; 97116; 97161; 97165; 97530; 97535; 99285; A9270; C9803; G0378; J0456; J0696; J3475; J7030; J7040; P9047; Q9967

== ENCOUNTER 2022-01-11 11:23 | Outpatient (CLI) | payer MEDICARE, OTHER, SELFPAY ==
[2022-01-11 11:54] LABS: Basophils Absolute Auto 0.1 K/mm3 (0.0-0.1); Basophils Percent Auto 0.8 % (0.2-1.2); Eosinophils Absolute Auto 0.2 K/mm3 (0-0.3); Eosinophils Percent Auto 2.1 % (0-4.4); Hematocrit 36.5 % (42.0-52.0); Hemoglobin 12.4 g/dL (14.0-18.0); Immature Granulocyte Absolute 0.06 K/mm3 (0.00-0.031); Immature Granulocyte Percent A 0.7 % (0-0.5); Lymphocytes Absolute Auto 1.61 K/mm3 (0.9-3.2); Lymphocytes Percent Auto 17.9 % (18.3-44.2); Mean Corpuscular Hemoglobin 34.8 pg (26-34); Mean Corpuscular Volume 102.5 fl (80-100); Mean Platelet Volume 10.7 fl (7.4-10.4); Monocytes Absolute Auto 1.3 K/mm3 (0.1-0.6); Neutrophils Absolute Auto 5.8 K/mm3 (1.3-6.7); Neutrophils Percent Auto 64.5 % (45.5-73.1); Platelet Count Result 175 k/mm3 (150-375); Red Blood Count 3.56 M/mm3 (4.6-6.20); Red Cell Distribution Width 17.5 % (11.5-14.5)
[2022-01-11 11:57] LABS: Alanine Aminotransferase 31 U/L (4-50); Alkaline Phosphatase 188 U/L (38-126); Anion Gap 9 mmol/L (8-16); Aspartate Amino Transferase 63 U/L (17-59); Bilirubin,Total 4.6 mg/dL (0.2-1.3); Blood Urea Nitrogen 19 mg/dL (9-20); Calcium 8.7 mg/dL (8.4-10.2); Carbon Dioxide 23 mmol/L (22-30); Chloride 103 mmol/L (98-107); Estimated Glomerular Filt Rate > 60; Glucose 131 mg/dL (65-110); Potassium 3.9 mmol/L (3.4-5.0); Sodium 135 mmol/L (137-145)
== END 2022-01-11 11:24 | disposition home or self-care (01) ==
PROVIDERS: Visit Provider Internal Medicine Gastroenterology
DX: K74.60 Unspecified cirrhosis of liver (principal); R18.8 Other ascites
CPT/HCPCS: 36415; 80053; 85025

== ENCOUNTER 2022-02-10 14:32 | Inpatient (IN) | payer MEDICARE, OTHER, SELFPAY ==
[2022-02-10] VITALS (29 sets, daily range): BP systolic 100–140; BP diastolic 61–89; PULSE 65–79; RESP 8–18; TEMP 36.4–36.8; O2SAT 88–100; BMI 24.4
--- NOTE | ~2022-02-10 | CT_ITS ---
EXAMINATION: CT brain wo con DATE: 02/10/2022 15:32 INDICATION: AMS . TECHNIQUE: Computed tomography (CT) of the head was performed without intravenous contrast. The mA wa s adjusted according to patient size. Iterative reconstruction technique was employed. The dose-lengt h product was 605.33 mGy-cm. COMPARISON: None FINDINGS: No acute intracranial hemorrhage or extra-axial fluid collection. No hydrocephalus, mass, or herniation. No acute ischemic infarct. Unremarkable dural venous sinus attenuation. No acute osseous abnormality. Near complete opacification of the frontal sinuses. Complete opacification of the left sphenoid sinus . Bilateral mastoid effusions. Atherosclerotic intracranial calcifications. Mild atrophy and chronic white matter change. IMPRESSION: No acute intracranial process. Reviewed, dictated and finalized at location K.
--- NOTE | ~2022-02-10 | CT_ITS ---
EXAMINATION: CT abdomen pelvis w con DATE: 02/10/2022 19:38 INDICATION: nausea, vomiting, weakness TECHNIQUE: Computed tomography (CT) of the abdomen and pelvis was performed with 75 mL Omnipaque 300 intravenous contrast. Automated exposure control and iterative reconstruction technique were employed . The dose-length product was 884.80 mGy-cm. COMPARISON: 12/12/2021 FINDINGS: Lower thorax: Bibasilar scar and atelectasis. Liver: Shrunken, nodular liver. Biliary/Gallbladder: Gallbladder is normal. No bile duct dilation. Pancreas: No mass or duct dilation. Spleen: Normal. Adrenals:No mass. Kidneys: No mass, stone, or hydronephrosis. Right midpole mass, too small to characterize but likely representing a cyst. GI tract: No small or large bowel dilation. Appendix not visualized. Diverticulosis without diverticu litis. Mesentery/Peritoneum: No ascites, mass, or free air. Numerous abdominal collaterals. Moderate volume free intraperitoneal fluid. Retroperitoneum: No mass. Pelvis: The rectum is dilated to 7.4 cm in diameter by formed stool, without wall thickening or surro unding inflammation. The bladder is mostly decompressed. Prostate not visualized. Moderate volume teri e pelvic fluid. Soft Tissues: Soft tissues and body wall unremarkable. Bones: No acute osseous finding. IMPRESSION: Fecal impaction. Otherwise, no acute abdominopelvic process detected. Cirrhosis with portal hypertens ion and moderate volume ascites. Reviewed, dictated and finalized at location K. IMPRESSION: Fecal impaction. Otherwise, no acute abdominopelvic process detected. Cirrhosis with portal hypertension and moderate volume ascites.
--- NOTE | ~2022-02-10 | CT_ITS ---
EXAMINATION: CT abdomen pelvis wo con DATE: 02/12/2022 09:23 INDICATION: Rule out ischemic bowel. TECHNIQUE: Computed tomography (CT) of the abdomen and pelvis was performed without intravenous contr ast. The dose-length product was 1079.56 mGy-cm. Automated exposure control and iterative reconstruct ion technique were employed. COMPARISON: CT dated 02/10/2022 FINDINGS: Small pleural effusions. Basilar dependent atelectasis. Cannot exclude superimposed pneumon ia. There is an atrophic nodular liver, consistent with cirrhosis. Moderate ascites. Splenomegaly. Ga llbladder is present. No focal pancreatic abnormalities. Adrenal glands are unremarkable. Kidneys are within normal limits. There is a ventral hernia containing fat and multiple collateral vessels. Ther e are surgical changes consistent with previous ventral hernia repair superior to this. Nonobstructiv e bowel gas pattern. Colonic diverticulosis. There are dilated small bowel loops extending to a surgi german anastomosis in the left mid abdomen. Findings suspicious for small bowel obstruction. Small amoun t of subcutaneous gas in the right anterior abdominal wall. No free intraperitoneal air or localized fluid collection to suggest abscess. No pneumatosis. Chronic diverticulosis without evidence for dive rticulitis. Severe lumbar spondylosis. No acute osseous abnormality. IMPRESSION: 1. Small bilateral pleural effusions with underlying bibasilar airspace disease which may represent a telectasis and/or pneumonia. 2: Dilated small bowel extending to surgical anastomosis in the left mid abdomen, suspicious for at l east partial small bowel obstruction. 3: Periumbilical hernia containing fat and multiple collateral vessels. 4: Cirrhosis with portal hypertension. Reviewed, dictated and finalized at location A. IMPRESSION: 1. Small bilateral pleural effusions with underlying bibasilar airspace disease which may represent atelectasis and/or pneumonia. 2: Dilated small bowel extending to surgical anastomosis in the left mid abdome n, suspicious for at least partial small bowel obstruction. 3: Periumbilical hernia containing fat and multiple collateral vessels. 4: Cirrhosis with portal hypertension.
--- NOTE | ~2022-02-10 | XR_ITS ---
EXAMINATION: XR chest 2V Exam Date/Time: 02/10/2022 15:10 CDT HISTORY: vomiting Comparison: 12/19/2021. RESULT: Lines, tubes, and devices: None. Lungs and pleura: Clear. Cardiomediastinal silhouette: Stable cardiomediastinal silhouette. Other: No acute osseous or upper abdominal finding. IMPRESSION: No acute cardiopulmonary process. Reviewed, dictated and finalized at location K.
--- NOTE | ~2022-02-10 | US_ITS ---
EXAMINATION: US abdomen limited DATE: 02/11/2022 08:46 INDICATION: Elevated bilirubin TECHNIQUE: Multiple grayscale and Doppler ultrasound images of the abdomen were obtained. COMPARISON: CT abdomen and pelvis dated 02/10/2022 FINDINGS: Pancreas is normal. Shrunken and nodular cirrhotic liver with coarsened echotexture. No liver lesion identified. No intrahepatic biliary duct dilation suspected. There is likely thrombosis of the main p ortal vein which extends to the portal splenic confluence with no evident vascular flow on color Dopp ler which is new since the CT from one day prior at which time the portal vein is well opacified with contrast. The splenic vein and hepatic arteries remain patent. The gallbladder is not visualized and was reportedly removed for decades prior. The common bile duct measures up to 8 mm in diameter which is within normal limits given poor patient age and postcholecystectomy. Large amount of perihepatic and perisplenic ascites. IMPRESSION: 1. 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 2. Cirrhosis with large amount of perihepatic and perisplenic ascites. Reviewed, dictated and finalized at location A. IMPRESSION: 1. 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 2. Cirrhosis with large amount of perihepatic and perisplenic ascites.
--- NOTE | 2022-02-10 14:42 | ED.NAVMDI ---
HPI - Nausea/Vomiting/Diarrhea General Chief complaint: Nausea/Vomiting/Diarrhea <Ciara Prieto MD - Last Filed: 02/10/22 19:10> Stated complaint: vomiting <Ciara Prieto MD - Last Filed: 02/10/22 19:10> Time Seen by Provider: 02/10/22 14:42 <Ciara Prieto MD - Last Filed: 02/10/22 19:10> Source: patient <Ciara Prieto MD - Last Filed: 02/10/22 19:10> Mode of arrival: wheelchair <Ciara Prieto MD - Last Filed: 02/10/22 19:10> Limitations: clinical condition <Ciara Prieto MD - Last Filed: 02/10/22 19:10> History of Present Illness HPI Narrative: The patient is a 81 yo male with a history of esophageal varices, hepatic cirrhosis, presenting to the emergency department for evaluation of generalized weakness, altered mental status, vomiting. Patient's son provides a history. Patient has been nauseated with vomiting today. Patient's son states he has been somewhat confused, weak and he had to help him crawl up the stairs in order to get to the car today. No noted fever, reported abdominal pain, dysuria. Patient has been doing well after recent admission, has been compliant with his medications. Patient son states that he is supposed to have a paracentesis on 02/13, otherwise has noted some fluid on the abdomen, but no severe distension. Pt was eating/drinking normally yesterday. Pt is DNR/DNI. Family does not wish to establish care with hepatology. <Ciara Prieto MD - Last Filed: 02/10/22 19:10> Related Data Home medications: Home Medications Medication Instructions Recorded Confirmed allopurinol 300 mg PO DAILY 01/12/21 01/09/22 <Ciara Prieto MD - Last Filed: 02/10/22 19:10> Allergies/Adverse reactions: Allergies Allergy/AdvReac Type Severity Reaction Status Date / Time No Known Allergies Allergy Unknown Verified 02/10/22 15:43 <Ciara Prieto MD - Last Filed: 02/10/22 19:10> Review of Systems Review of Systems: ROS unobtainable: Yes unobtainable due to mental status <Ciara Prieto MD - Last Filed: 02/10/22 19:10> [facility] Past Medical History Medical History: Medical History Adenomatous colon polyp BPH (benign prostatic hyperplasia) Cirrhosis Coagulopathy Diverticulitis Duodenal ulcer Esophageal stricture Esophageal varices GERD (gastroesophageal reflux disease) Gout [place] (hard of hearing) Hx SBO Hypertension Kidney stones Lung nodule Portal hypertension Portal hypertensive gastropathy Skin cancer Thrombocytopenia due to hypersplenism Vitamin B 12 deficiency <Ciara Prieto MD - Last Filed: 02/10/22 19:10> Surgical History Surgical History: Surgical History H/O colonoscopy H/O esophagogastroduodenoscopy H/O hernia repair History of bowel resection Hx laparoscopic cholecystectomy Hx of appendectomy S/P TURP <Ciara Prieto MD - Last Filed: 02/10/22 19:10> Family History Family History: Family History Father Acute myocardial infarction Family history of irritable bowel syndrome Mother Family history of dementia <Ciara Prieto MD - Last Filed: 02/10/22 19:10> Social History Social History: Social History Smoking status: Never smoker Alcohol intake: never Substance use: never Substance use type: does not use Gender identity (if verbalized by the patient): Male Spiritual care concerns: No <Ciara Prieto MD - Last Filed: 02/10/22 19:10> Exam Narrative: GENERAL: Awake, not conversant, responding to simple commands HEAD: Normocephalic, atraumatic. EYES: PERRLA and EOMI. Bilateral scleral icterus. ENT: Nares clear, no rhinorrhea or epistaxis. Mucous membranes dry NECK: Supple. CHEST: No respiratory distress, breathing even and no
--- NOTE | 2022-02-10 14:58 | ECG_ITS ---
Measurements Intervals [place] Rate: 70 P: 78 LA: 162 QRS: 21 QRSD: 94 T: 28 QT: 471 QTc: 511 Interpretive Statements SINUS RHYTHM ATRIAL PREMATURE COMPLEXES LOW QRS VOLTAGE IN PRECORDIAL LEADS BORDERLINE T WAVE ABNORMALITY- ANTERIOR LEADS BASELINE ARTIFACT- I, II, III, AVF, V1-V3 BORDERLINE ECG Electronically Signed On 02-10-2022 17:09:11 CDT by Chun Mack D.O.
[2022-02-10] MEDS: SODIUM CHLORIDE 0.9% IV 1,000 ML 999 ML IV CONT (15:41)
[2022-02-10] MEDS: ONDANSETRON INJ 4 MG/2 ML VIAL IV PUSH (15:41)
[2022-02-10 15:46] LABS: Basophils Percent Auto 0.4 % (0.2-1.2); Eosinophils Absolute Auto 0.1 K/mm3 (0-0.3); Eosinophils Percent Auto 0.6 % (0-4.4); Hemoglobin 13.2 g/dL (14.0-18.0); Immature Granulocyte Absolute 0.05 K/mm3 (0.00-0.031); Immature Granulocyte Percent A 0.6 % (0-0.5); Lymphocytes Absolute Auto 1.43 K/mm3 (0.9-3.2); Mean Corpuscular HGB Conc 34.7 g/dl (32-36); Mean Corpuscular Hemoglobin 35.4 pg (26-34); Mean Corpuscular Volume 101.9 fl (80-100); Mean Platelet Volume 9.9 fl (7.4-10.4); Monocytes Absolute Auto 0.9 K/mm3 (0.1-0.6); Monocytes Percent Auto 11.1 % (2.6-8.5); Neutrophils Absolute Auto 5.9 K/mm3 (1.3-6.7); Neutrophils Percent Auto 70.3 % (45.5-73.1); Platelet Count Result 139 k/mm3 (150-375); Red Blood Count 3.73 M/mm3 (4.6-6.20); Red Cell Distribution Width 15.1 % (11.5-14.5); White Blood Count 8.4 K/mm3 (4.5-10.0)
[2022-02-10 15:57] LABS: Alanine Aminotransferase 37 U/L (6-50); Albumin Level 2.8 g/dL (3.5-5.1); Alkaline Phosphatase 132 U/L (38-126); Ammonia 38 umol/L (9-30); Anion Gap 7 mmol/L (8-16); Aspartate Amino Transferase 62 U/L (17-59); Bilirubin,Total 6.3 mg/dL (0.2-1.3); Blood Urea Nitrogen 23 mg/dL (9-20); Calcium 9.1 mg/dL (8.4-10.2); Carbon Dioxide 25 mmol/L (22-30); Chloride 97 mmol/L (98-107); Estimated CRCL calculation 53 ml/min; Estimated Glomerular Filt Rate > 60; Glucose 115 mg/dL (65-110); Lipase 175 U/L (23-300); Potassium 4.3 mmol/L (3.4-5.0); Sodium 129 mmol/L (137-145)
[2022-02-10 16:01] LABS: INR 1.7; Prothrombin Time 19.3 Seconds (11.1-14.7)
[2022-02-10 16:03] LABS: Partial Thromboplastin Time 38.5 SECONDS (22.3-36.8)
[2022-02-10 16:06] LABS: Glucose Point of Care 117 mg/dl (65-105)
[2022-02-10 16:10] LABS: Magnesium 2.1 mg/dL (1.6-2.3)
[2022-02-10 16:22] LABS: SARS-CoV-2 RNA PCR Negative
[2022-02-10] MEDS: MAGNESIUM SULF 1 GM/D5W 100 ML 1 GM/100 ML BAG IVPB (17:32)
[2022-02-10 18:51] LABS: Appearance Urine Clear (Clear); Bilirubin Urine 2+ (Negative); Blood Urine 2+ (Negative); Color Urine Amber (Yellow); Glucose Urine UA Negative (Negative); Ketones Urine Negative (Negative); Leukocyte Esterase Ur Negative LEU/UL (Negative); Nitrate Urine Negative (Negative); Protein Urine Negative (Negative); Specific Grav Ur >= 1.030 (1.001-1.035)
[2022-02-10 19:03] LABS: Hyaline Casts Urine 50+ /lpf; Mucus Urine Few /lpf; RBC Urine >75 /hpf (0-2); Squamous Epithelial Cell Urine Occasional /hpf (Few)
[2022-02-10 19:07] LABS: Add Urine Microscopic? YES
--- NOTE | 2022-02-10 19:45 | PC.NURSE ---
bedside report from Heidi LADD
--- NOTE | 2022-02-10 19:59 | PM.IMHP ---
H&P: HPI History of Present Illness Date/Time: 02/10/22 19:59 Chief Complaint: Nausea and vomiting. Narrative: This is a 81-year-old male with past medical history significant for hepatic cirrhosis, portal hypertension, duodenal ulcer, esophageal stricture, esophageal varices, gastroesophageal reflux disease, gout. Patient is brought to the emergency room due to altered mental status, nausea, vomiting and diarrhea, patient is unable to give much history which has been obtain upon reviewing medical records some was earlier on. Preliminary workup was significant for sodium of 129. A CT of abdomen and pelvis was significant for moderate amount of ascites. Patient is been admitted for further evaluation, management and treatment. Review of Systems Review of Systems: ROS unobtainable: Yes unobtainable due to mental status (Delirious.) PMF Past Medical History Medical History Adenomatous colon polyp BPH (benign prostatic hyperplasia) Cirrhosis Coagulopathy Diverticulitis Duodenal ulcer Esophageal stricture Esophageal varices GERD (gastroesophageal reflux disease) Gout [place] (hard of hearing) Hx SBO Hypertension Kidney stones Lung nodule Portal hypertension Portal hypertensive gastropathy Skin cancer Thrombocytopenia due to hypersplenism Vitamin B 12 deficiency Surgical History Surgical History H/O colonoscopy H/O esophagogastroduodenoscopy H/O hernia repair History of bowel resection Hx laparoscopic cholecystectomy Hx of appendectomy S/P TURP Family History Family History Father Acute myocardial infarction Family history of irritable bowel syndrome Mother Family history of dementia Social History Social History Smoking status: Never smoker Alcohol intake: never Substance use: never Substance use type: does not use Gender identity (if verbalized by the patient): Male Spiritual care concerns: No Meds Home Medications and Allergies Home Medications Medication Instructions Recorded Confirmed Type allopurinol 300 mg PO DAILY 01/12/21 01/09/22 History furosemide 40 mg PO DAILY #30 tablet 11/16/21 01/09/22 Rx midodrine 10 mg PO TID #90 tablet 12/19/21 01/09/22 Rx omeprazole 40 mg PO BID #60 cap 12/19/21 01/09/22 Rx propranolol 10 mg PO Q12HR #60 tablet 12/19/21 01/09/22 Rx spironolactone [Aldactone] 100 mg PO BID #60 tablet 12/19/21 01/09/22 Rx Allergies Allergy/AdvReac Type Severity Reaction Status Date / Time No Known Allergies Allergy Unknown Verified 02/10/22 22:47 Vital Signs Vital Signs - 24 hr 02/10/22 14:40 02/10/22 17:35 02/10/22 18:34 Temperature 98.3 F Pulse Rate 79 74 79 Respiratory Rate 16 12 14 Blood Pressure 140/89 116/68 124/70 Pulse Oximetry 100 100 99 Exam Narrative: Patient is laying in bed. Const: General: comfortable, no acute distress, well developed and ill appearing Nutritional Appearance: thin Orientation/consciousness: oriented to person and patient obtunded Limitations: altered mental status HENMT: Head: normal to inspection, normocephalic and atraumatic Ears: hearing grossly normal bilaterally General nose exam: Normal external nose present Face and sinus: normal facial exam Mouth: Yes dry mucous membranes Eyes: General: appearance normal, both eyes and all related structures Alignment and Position: alignment normal Sclera: scleral abnormality bilateral (Icterus) Pupils: Equal, round and reactive pupils present EOM: EOMs intact bilaterally Neck: Neck: normal visual inspection, full ROM, no lymphadenopathy, supple and no JVD Thyroid: thyroid normal Lymphatic: no lymphadenopathy noted Resp: Effort & Inspection: normal respiratory effort and able to speak in complete sentences Auscultation: clear to auscultation bilater
--- NOTE | 2022-02-10 21:45 | PC.NURSE ---
WILBERTO Turner stated We would just do the soap suds enema upstairs.
--- NOTE | 2022-02-10 22:13 | ADMGEN ---
This patient, Minh Nielsen, was admitted to [facility] Surg Room 304-01. Patient/family oriented to hospital policies and general routines including ID bracelet, bed and alarms, visiting hours, pain management, procedures, bathroom and other care routines, personal items, smoking policy, room service/diet, and visiting hours. Information on how to activate the Rapid Response Team has been discussed. Patient/Family are encouraged to report perceived risks to care and to ask questions if they do not understand what they are told or what they should do.
--- NOTE | 2022-02-10 22:17 | PC.NURSE ---
Pt's son Erich Nielsen stated to ER nurse Rocio that he would not liked to be called tonight 02/10/22 and instead would like to be called in the AM on 02/11/22 to reconcile medical history and medication list for pt. Minh Nielsen
[2022-02-10 23:11] LABS: Creatine Kinase < 20 U/L (55-170)
--- NOTE | 2022-02-10 23:30 | PC.NURSE ---
bleeding noted from the tip of the penis, visible discomfort with palpation and cleansing with warm soapy water but pt states he has no pain in that area. no area of altered skin of integrity seen on the penis
[2022-02-11] VITALS (16 sets, daily range): BP systolic 66–109; BP diastolic 42–66; PULSE 75–122; RESP 12–35; TEMP 36.2–38.1; O2SAT 75–99
[2022-02-11] MEDS: SODIUM CHLORIDE 0.9% IV 1,000 ML 75 ML IV CONT (02:16)
[2022-02-11 07:54] LABS: Basophils Percent Auto 0.4 % (0.2-1.2); Eosinophils Absolute Auto 0.1 K/mm3 (0-0.3); Hematocrit 38.2 % (42.0-52.0); Hemoglobin 13.2 g/dL (14.0-18.0); Immature Granulocyte Absolute 0.05 K/mm3 (0.00-0.031); Immature Granulocyte Percent A 0.6 % (0-0.5); Lymphocytes Absolute Auto 1.51 K/mm3 (0.9-3.2); Lymphocytes Percent Auto 19.1 % (18.3-44.2); Mean Corpuscular HGB Conc 34.6 g/dl (32-36); Mean Corpuscular Hemoglobin 35.8 pg (26-34); Mean Corpuscular Volume 103.5 fl (80-100); Mean Platelet Volume 10.1 fl (7.4-10.4); Monocytes Percent Auto 12.4 % (2.6-8.5); Neutrophils Absolute Auto 5.3 K/mm3 (1.3-6.7); Neutrophils Percent Auto 66.5 % (45.5-73.1); Platelet Count Result 98 k/mm3 (150-375); Red Blood Count 3.69 M/mm3 (4.6-6.20); Red Cell Distribution Width 15.4 % (11.5-14.5); White Blood Count 7.9 K/mm3 (4.5-10.0)
[2022-02-11 08:05] LABS: Alanine Aminotransferase 33 U/L (6-50); Albumin Level 2.5 g/dL (3.5-5.1); Alkaline Phosphatase 108 U/L (38-126); Anion Gap 7 mmol/L (8-16); Aspartate Amino Transferase 57 U/L (17-59); Blood Urea Nitrogen 24 mg/dL (9-20); Calcium 8.7 mg/dL (8.4-10.2); Carbon Dioxide 20 mmol/L (22-30); Chloride 101 mmol/L (98-107); Estimated CRCL calculation 58 ml/min; Estimated Glomerular Filt Rate > 60; Glucose 89 mg/dL (65-110); Sodium 128 mmol/L (137-145)
[2022-02-11] MEDS: LACTULOSE 20 GM/30 ML UDC PO (09:10)
[2022-02-11] MEDS: MIDODRINE HCL 10 MG TABLET PO ×3 (09:10→17:02)
[2022-02-11] MEDS: allopurinoL 300 MG TABLET PO (09:10)
[2022-02-11] MEDS: GLYCERIN ADULT 1 SUPP.RECT RECTAL (09:10)
[2022-02-11] MEDS: PROPRANOLOL HCL 10 MG TABLET PO (09:11)
[2022-02-11] MEDS: PANTOPRAZOLE SODIUM IV 40 MG VIAL IV PUSH ×2 (09:12→21:10)
[2022-02-11 10:27] LABS: Basophils Percent Auto 0.3 % (0.2-1.2); Eosinophils Absolute Auto 0.1 K/mm3 (0-0.3); Eosinophils Percent Auto 0.6 % (0-4.4); Hematocrit 40.3 % (42.0-52.0); Hemoglobin 13.4 g/dL (14.0-18.0); Immature Granulocyte Absolute 0.05 K/mm3 (0.00-0.031); Immature Granulocyte Percent A 0.6 % (0-0.5); Lymphocytes Absolute Auto 1.72 K/mm3 (0.9-3.2); Lymphocytes Percent Auto 19.7 % (18.3-44.2); Mean Corpuscular HGB Conc 33.3 g/dl (32-36); Mean Corpuscular Hemoglobin 35.4 pg (26-34); Mean Corpuscular Volume 106.6 fl (80-100); Mean Platelet Volume 9.7 fl (7.4-10.4); Monocytes Percent Auto 11.9 % (2.6-8.5); Neutrophils Absolute Auto 5.8 K/mm3 (1.3-6.7); Neutrophils Percent Auto 66.9 % (45.5-73.1); Platelet Count Result 119 k/mm3 (150-375); Red Blood Count 3.78 M/mm3 (4.6-6.20); Red Cell Distribution Width 15.5 % (11.5-14.5); White Blood Count 8.7 K/mm3 (4.5-10.0)
--- NOTE | 2022-02-11 10:29 | PM.IMPN ---
Progress Note: A&P Assessment and Plan (1) Nausea and vomiting: Code(s): R11.2 - Nausea with vomiting, unspecified Status: Acute Assessment and Plan: Admit to regular medical floor Trial of clear liquid PPI b.i.d. Supportive care CT abdomen and pelvis reviewed (2) Hyponatremia: Code(s): E87.1 - Hypo-osmolality and hyponatremia Status: Acute Assessment and Plan: Likely secondary to GI losses Currently receiving NS 0.9% Continue to monitor (3) Chronic liver disease and cirrhosis: Code(s): K74.60 - Unspecified cirrhosis of liver; K76.9 - Liver disease, unspecified Status: Acute Assessment and Plan: Patient appears to be stable from that standpoint Continue to monitor daily intake and output Holding furosemide and spironolactone due to hyponatremia Restart home meds when clinically able Ultrasound of the abdomen was reviewed, revealed a complete portal vein thrombosis. GI was consulted, appreciate assistance and recommendations. No acute intervention for anticoagulation at this time. Will continue to follow patient's clinical course and start anticoagulation if indicated. Patient does have a history of esophageal varices-currently stable (4) GERD (gastroesophageal reflux disease): Code(s): K21.9 - Gastro-esophageal reflux disease without esophagitis Status: Acute Assessment and Plan: PPI b.i.d. (5) Esophageal varices: Code(s): I85.00 - Esophageal varices without bleeding Status: Acute Assessment and Plan: Stable (6) Fecal impaction in rectum: Code(s): K56.41 - Fecal impaction Status: Acute Assessment and Plan: Soap suds anemia as needed. Subjective Date/time seen: 02/11/22 10:29 Patient is alert to self and place. He was lying in bed during evaluation this morning. He denies any significant acute abdominal pain. He does have mild tenderness with palpation. Spoke with Gastroenterology about plan of care for the patient. No acute interventions required at this time. Continue to monitor patient's clinical course. No acute events reported by RN during the night. Labs and imaging reviewed. Review of Systems Review of Systems: ROS unobtainable: Yes unobtainable due to mental status (Delirious.) Exam Narrative: General: No acute distress. Jaundice appearance, mildly confused Mental Status: Awake, alert and oriented to person, place, and time with clear speech. Skin: Skin in warm, dry and intact without rashes or lesions. Head: Normocephalic and atraumatic. Eyes: Conjunctivae are clear without exudates or hemorrhage. Sclera is non-icteric. EOM are intact, PERRLA. Ears: The external ear and canal are non-tender and without swelling or discharge. Nose: Nasal mucosa is pink and moist. Septum midline. Nares patent bilaterally. Throat: Oral mucosa pink and moist with good dentition. Tongue midline. Neck: The neck supple without adenopathy. Trachea midline. No JVD. Cardiac: S1 and S2 regular rate and rhythm. No murmurs, gallops, or rubs auscultated. Respiratory: Chest wall symmetric, nontender and without deformity or trauma. Respirations even and unlabored. Lung sounds are diminished to auscultation in all lobes bilaterally without wheezes, rhonchi, or rales. Abdominal: Abdomen distended, round and mildly-tender to palpation. Bowel sounds present and normoactive in all 4 quadrants. Spine: Neck and back with grossly normal curvature, no deformity in appearance or signs of trauma. Extremities: Upper and lower extremities atraumatic without tenderness or deformity. Full range of motion and muscle strength 3+/5 to all extremities bilaterally. Bilateral lower extremity edema +1 Neurological: Full and symmetric motor and light touch sensation bilaterally. Cranial nerves II-XII grossly intact. Objective Data Vital Signs Vital Signs: Vital Signs - 24 hr 02/10/22 14:40 02/10/22 14:47 02/10/22 16:17 Temperature 9
[2022-02-11 10:40] LABS: INR 1.6
--- NOTE | 2022-02-11 10:45 | WPDGICN ---
Assessment and Plan Assessment and plan (1) Nausea and vomiting: Code(s): R11.2 - Nausea with vomiting, unspecified Status: Acute Assessment and Plan: this may well be due to his electrolyte imbalance. He has a regular diet ordered. We will see how he does with that (2) Hyperbilirubinemia: Code(s): E80.6 - Other disorders of bilirubin metabolism Status: Acute Assessment and Plan: his bilirubin has been increasing gradually. It is now up to 6.3. Also albumin level is lower than it had been. This correlates with his progressive liver disease (3) Altered mental status: Code(s): R41.82 - Altered mental status, unspecified Status: Acute Assessment and Plan: his confusion is likely due to low sodium. However his ammonia level is slightly elevated now 2 in and had not been elevated in the past. Will start him on lactulose (4) Hyponatremia: Code(s): E87.1 - Hypo-osmolality and hyponatremia Status: Acute Assessment and Plan: sodium was 129 yesterday, 128 today. We will need to cut back on his diuretics at discharge (5) Chronic liver disease and cirrhosis: Code(s): K74.60 - Unspecified cirrhosis of liver; K76.9 - Liver disease, unspecified Status: Acute Assessment and Plan: patient and his son are aware of the fact that this is a progressive disease and complications work or. They were offered consultation with business director at [facility] of the [facility] but the patient declined. He states that he is willing to accept whatever happens knowing that his course will be gradually down hill. He has moved in with his son who can take care of him, as he had been living alone (6) Ascites: Qualifiers: Ascites type: other type Qualified Code(s): R18.8 - Other ascites Code(s): R18.8 - Other ascites Status: Acute Assessment and Plan: as she has very little ascites now compared to what he had over the past few months. He may develop more now with portal vein thrombosis. He has she was scheduled for paracentesis to be done in a couple of days as an outpatient but I do not think he will need that at this time. There was not a significant amount of of free ascitic fluid seen on imaging. (7) Esophageal varices: Code(s): I85.00 - Esophageal varices without bleeding Status: Acute Assessment and Plan: When he had his last endoscopy, the varices were grade 1 and he has been on propranolol to prevent bleeding. I think that he will tolerate the anticoagulation for his portal vein well but certainly we will need to watch for bleeding. (8) Azotemia: Code(s): R79.89 - Other specified abnormal findings of blood chemistry Status: Acute Assessment and Plan: His BUN is up 24 which is high for him and in fact anybody with cirrhosis. This again is likely due to the diuretics. Will need to watch for hepatorenal syndrome but I think cutting back on diuretics will be sufficient GI Consult Note Consult date/time: 02/11/22 10:45 HPI: Minh Nielsen is a 81 year old male Who is known to be who has chronic liver disease, cirrhosis with portal hypertension including the fact that he has esophageal varices and recurrent ascites. He in fact has had a great deal of problem with fluid accumulation having recently had very large massively edematous legs. He did respond to diuretics but is admitted this time with confusion and nausea. He was found have a low sodium of 129. A CT scan the abdomen showed only small amount of ascites. An ultrasound was then done that shows an acute portal vein thrombosis which apparently is not seen on the CT scan. When I saw him in the office a few weeks ago, his weight was down to 184, about 83 kg down 22 lb from what it had been a month previously. His weight is actually little lower now. About 180 lb he is confused and cannot give me a very good history but is aware the f
[2022-02-11 10:49] LABS: Partial Thromboplastin Time 30.3 SECONDS (22.3-36.8)
[2022-02-11] MEDS: FONDAPARINUX SODIUM 5 MG/0.4 ML SYRINGE SUB-Q (11:48)
[2022-02-11] MEDS: FONDAPARINUX SODIUM 2.5 MG/0.5 ML SYRINGE SUB-Q (11:48)
[2022-02-11 18:16] LABS: Glucose Point of Care 63 mg/dl (65-105)
[2022-02-11 18:56] LABS: Eosinophils Percent Auto 0.3 % (0-4.4); Hematocrit 34.3 % (42.0-52.0); Hemoglobin 11.6 g/dL (14.0-18.0); Immature Granulocyte Absolute 0.02 K/mm3 (0.00-0.031); Immature Granulocyte Percent A 0.6 % (0-0.5); Lymphocytes Absolute Auto 0.22 K/mm3 (0.9-3.2); Lymphocytes Percent Auto 6.6 % (18.3-44.2); Mean Corpuscular HGB Conc 33.8 g/dl (32-36); Mean Corpuscular Hemoglobin 35.7 pg (26-34); Mean Corpuscular Volume 105.5 fl (80-100); Mean Platelet Volume 9.8 fl (7.4-10.4); Monocytes Percent Auto 0.3 % (2.6-8.5); Neutrophils Absolute Auto 3.1 K/mm3 (1.3-6.7); Neutrophils Percent Auto 92.2 % (45.5-73.1); Nucleated Red Blood Cells Perc 0.6 % (0.0-0.2); Platelet Count Result 108 k/mm3 (150-375); Red Blood Count 3.25 M/mm3 (4.6-6.20); Red Cell Distribution Width 15.4 % (11.5-14.5); White Blood Count 3.3 K/mm3 (4.5-10.0)
--- NOTE | 2022-02-11 19:00 | PM.EVENT ---
Event Note Event Note Event Note: Rapid response called on 02/11/2022 at approximately 18:00. was at bedside when the patient became unresponsive and his eyes rolled into the back of his head . According to nursing staff, the patient was hypotensive and hypoglycemic. He was transferred to the ICU and remained hypotensive despite IV fluid boluses. I was called to place a central line on the patient and on examination he was noted to be oozing blood from multiple sites including from IV sites, needle stick sites, skin tears, and his Rader catheter. The patient denied chest pain, shortness breast, nausea, and abdominal pain. He looked acutely ill and was mildly tachypneic and tachycardic. Blood pressures were in the 60s a 70 systolic prior to initiation of vasopressors. Abdomen was mildly distended with positive bowel sounds. He was not tender to palpation throughout the abdomen. Peripheral pulses were intact. He was alert and oriented. Stat labs were ordered and are consistent with DIC. At that time I did not feel comfortable starting a central line and peripheral norepinephrine was started. The patient was given 1 unit of FFP and 1 unit of cryoprecipitate and there after a central line was placed in the right femoral vein. lactic acid level was > 10 and he was started on cefepime and vancomycin for concerns of possible developing sepsis. Multiple discussions were had with the patient and his son, at which time the son change the patient's code status to a full code. Given the patient's severe liver disease, DIC, recent diagnosis of portal vein thrombus, and other comorbidities it was felt that they wished him to be a full code that he would need to be transferred to a tertiary care facility. Again, multiple discussions were had with the patient's son and he reiterated the ED patient is full code status and he wished for transfer to either [facility] or [facility]. Call placed to [facility] and, Dr. Jean-Paul Montano (GI) accepted consult. He recommends Protonix and possible octreotide if there were concerns for esophageal varices (no concerns at this time). I then spoke with Dr. Jelena Mondragon ([facility] fellow) who accepted the patient in transfer. <Ronda Chu PA-C - Last Filed: 02/15/22 00:28> Please see above for detailed note. son at bedside when patient become unreponsive. [employer]POS[employer]INE TENDER was called. patient awake but minimally responsive on arrival. Hypotensive and hypoglycemic. no iv access. tredelenberg position obtained. iv acccess was obtained with 22 G iv on his left forearm and iv fluid bolus was started. glucose was initially administered sublingually, later iv push was given. patietn started to get a bit more repsonsive and answering questions. However still was hypotensive. Decision made to move him to the ICU and get iv access and furhter treatment. Discussed with son regading the situtaiton. [facility] he has opted for DNR status prior to the evnet, pateint's son who is a surrogate decision maker at this time wants to perform everything and wants him to be full code. he was then moved to ICU for further treatment. see further notes above. <Georges Manzano MD - Last Filed: 02/22/22 07:52> Critical Care Time Total Critical Care Time: 70 <Ronda Chu PA-C - Last Filed: 02/15/22 00:28> Attestation: Due to a high probability of clinically significant, life threatening deterioration, the patient required my highest level of preparedness to intervene emergently and I personally spent this critical care time directly and personally managing the patient. This critical care time included obtaining a history; examining the patient; pulse oximetry; ordering and review of studies; arranging urgent treatment with development of a management plan; evaluation of patient's response to treatment; frequent reassessment; discussions with other providers, transfer center, and multiple discussions with the patient and his son. Please see Assessment
[2022-02-11 19:06] LABS: Alanine Aminotransferase 39 U/L (6-50); Alkaline Phosphatase 93 U/L (38-126); Anion Gap 13 mmol/L (8-16); Aspartate Amino Transferase 54 U/L (17-59); Bilirubin,Total 5.6 mg/dL (0.2-1.3); Blood Urea Nitrogen 26 mg/dL (9-20); Calcium 8.6 mg/dL (8.4-10.2); Carbon Dioxide 16 mmol/L (22-30); Chloride 98 mmol/L (98-107); Estimated CRCL calculation 42 ml/min; Estimated Glomerular Filt Rate 49; Glucose 150 mg/dL (65-110); Potassium 4.7 mmol/L (3.4-5.0); Sodium 127 mmol/L (137-145)
[2022-02-11 19:12] LABS: Platelet Estimate Decreased (Adequate)
[2022-02-11] MEDS: GLUCOSE ORAL GEL 15 GM OF GLUCSE IN 37.5 GM TUBE (19:12)
[2022-02-11] MEDS: NOREPINEPHRINE 8 MG/D5W 250 ML 8 MG/250 ML BAG 9.38 MG IV CONT (19:13)
[2022-02-11 19:14] LABS: Ovalocytes 1+ (NORMAL)
[2022-02-11] MEDS: DEXTROSE 50% 25 GM/50 ML SYRINGE IV PUSH (19:15)
[2022-02-11 19:38] LABS: Glucose Point of Care 148 mg/dl (65-105); Lactic Acid Reflex 10.6 mmol/L (0.7-2.0)
[2022-02-11 19:38] LABS: Glucose Point of Care 73 mg/dl (65-105)
[2022-02-11 19:57] LABS: INR 2.6; Prothrombin Time 26.9 Seconds (11.1-14.7)
[2022-02-11 19:58] LABS: Partial Thromboplastin Time 46.4 SECONDS (22.3-36.8)
[2022-02-11 19:59] LABS: Magnesium 2.1 mg/dL (1.6-2.3)
[2022-02-11 20:04] LABS: Fibrinogen 113 mg/dl (215-510)
[2022-02-11 20:09] LABS: D Dimer 7.76 ug/mL (<0.48)
[2022-02-11] MEDS: SODIUM CHLORIDE 0.9% IV 1,000 ML 999 ML IV CONT (20:26)
[2022-02-11] MEDS: hetaSTARCH 6%/NACL 500 ML 250 ML IV CONT (20:26)
[2022-02-11 21:07] LABS: Appearance Urine Cloudy (Clear); Bilirubin Urine 2+ (Negative); Blood Urine 3+ (Negative); Color Urine Amber (Yellow); Glucose Urine UA Negative (Negative); Ketones Urine Trace mg/dL (Negative); Leukocyte Esterase Ur Negative LEU/UL (Negative); Nitrate Urine Negative (Negative); Protein Urine 2+ mg/dL (Negative); Specific Grav Ur >= 1.030 (1.001-1.035); pH Urine 5.5 (5.0-9.0)
[2022-02-11 21:21] LABS: Bacteria Urine Trace /hpf; Calcium Oxalate Crystals Urine Present /hpf; Mucus Urine Rare /lpf; RBC Urine >75 /hpf (0-2); Squamous Epithelial Cell Urine Occasional /hpf (Few); WBC Urine >75 /hpf
[2022-02-11 21:22] LABS: Add Urine Microscopic? YES
[2022-02-11] MEDS: HYDROCORTISONE SODIUM SUCCINATE 100 MG/2 ML VIAL IV PUSH (21:31)
[2022-02-11] MEDS: SODIUM CHLORIDE 0.9% IV 250 ML 30 ML IV CONT (21:34)
[2022-02-11 22:24] LABS: Reflex Lactic Acid Yes or No Add Lactic
--- NOTE | 2022-02-11 23:00 | P.PCNBED_ITS ---
Procedures Central Line Placement Right Femoral: Central Line Date: 02/11/22 <Ronda Chu PA-C - Last Filed: 02/11/22 23:34> Central Line Time: 23:00 <Ronda Chu PA-C - Last Filed: 02/11/22 23:34> Discussed w/ the patient/family/POA,the placement of a central venous catheter, including its clinical necessity/indication & associated potential risks, benifits and alternatives.: Yes <MIHAI Lewis Last Filed: 02/11/22 23:34> The patient/family/POA understand(s) and acknowledge(s) the need to proceed with central venous catheter insertion as an important element of the patient's clinical management.: Yes <MIHAI Lewis Last Filed: 02/11/22 23:34> Consent: Patient and son Erich gave consent. <MIHAI Lewis Last Filed: 02/11/22 23:34> Time Out Performed: Yes <MIHAI Lewis Last Filed: 02/11/22 23:34> Patient Position: supine <Ronda Chu PA-C - Last Filed: 02/11/22 23:34> Patient placed on monitor/pulse ox: Yes <MIHAI Lewis Last Filed: 02/11/22 23:34> Provider Prep: mask, sterile gown, sterile gloves, Max. sterile barrier precautions, cap and hand hygiene with conventional soap/water or alcohol based hand rub <MIHAI Lewis Last Filed: 02/11/22 23:34> Central line prep: 2% Chlorhexidine scrub <MIHAI Lewis Last Filed: 02/11/22 23:34> Local anesthesia used: lidocaine 1% <MIHAI Lewis Last Filed: 02/11/22 23:34> Amount of anesthesia used (ml): 5 <MIHAI Lewis Last Filed: 02/11/22 23:34> Sterile US Technique with sterile gel/sterile probe covers: Yes <MIHAI Lewis Last Filed: 02/11/22 23:34> Central line lumen inserted: triple <MIHAI Lewis Last Filed: 02/11/22 23:34> Vietnamese: 7 <MIHAI Lewis Last Filed: 02/11/22 23:34> Length (cm): 20 <MIHAI Lewis Last Filed: 02/11/22 23:34> Post Procedure: sutured in place, good blood return, all ports aspirated, flushed, capped, transparent dressing, securement product and aseptic technique maintained throughout procedure <MIHAI Lewis Last Filed: 02/11/22 23:34> Post procedure x-ray: other (n/a with femoral placement) <MIHAI Lewis Last Filed: 02/11/22 23:34> Patient tolerated procedure: well and no complications <MIHAI Lewis Last Filed: 02/11/22 23:34>
[2022-02-11 23:48] LABS: Lactic Acid 9.2 mmol/L (0.7-2.0)
[2022-02-12] VITALS (23 sets, daily range): BP systolic 75–131; BP diastolic 44–79; PULSE 83–96; RESP 16–20; TEMP 36.7–37.3; O2SAT 95–98
--- NOTE | 2022-02-12 00:42 | PC.NURSE ---
2310 Right femoral tlc inserted per H. Kimberley WISDOM. Patient tolerated procedure well.
[2022-02-12] MEDS: VASOPRESSIN INJ 100 UNITS in DEXTROSE 5% 95 ML IV CONT (01:08)
[2022-02-12] MEDS: SODIUM CHLORIDE 0.9% IV 1,000 ML 999 ML IV CONT (01:10)
[2022-02-12] MEDS: ALBUMIN HUMAN 25% 12.5 GM/50ML 50 ML IVPB ×5 (01:11→23:05)
[2022-02-12] MEDS: NOREPINEPHRINE 8 MG/D5W 250 ML 8 MG/250 ML BAG 56.25 MG IV CONT (03:36)
--- NOTE | 2022-02-12 03:39 | PC.NURSE ---
0320 Called patients son Erich to inform of an ICU bed at [facility]. Erich declines transfer stating that [place] and i wasn't prepared for him to go anywhere tonight. Discussed with Erich that the assembly line brazer thinks the patient needs a higher level of care and that the patients condition has deteriorated and we have maxed out on one blood pressure support medication and have added another throughout the night. He understands this and knows we do not have a liver specialist at our hospital, despite this information he wants the patient to remain at [facility] and to remain a full code.
--- NOTE | 2022-02-12 04:00 | PC.NURSE ---
dr mcfadden notified that pts son refused transfer to [facility] ICU. Dr Potts notified and called the son to discuss the need for transfer and she said the son still declined and said he would make no toehr decisions until the morning. Dr Potts confirmed that the son still wanted the patient to be a full code and he told he yes.
[2022-02-12] MEDS: CENTRAL LINE FLUSH 10 ML IV PUSH ×4 (05:03→21:40)
[2022-02-12 05:12] LABS: Hematocrit 30.7 % (42.0-52.0); Hemoglobin 10.5 g/dL (14.0-18.0); Immature Platelet Fraction Pct 4.5 % (0.9-11.2); Mean Corpuscular HGB Conc 34.2 g/dl (32-36); Mean Corpuscular Hemoglobin 36.2 pg (26-34); Mean Corpuscular Volume 105.9 fl (80-100); Mean Platelet Volume 9.9 fl (7.4-10.4); Platelet Count Result 73 k/mm3 (150-375); Red Cell Distribution Width 15.6 % (11.5-14.5); White Blood Count 33.7 K/mm3 (4.5-10.0)
[2022-02-12 05:24] LABS: Albumin Level 2.1 g/dL (3.5-5.1); Alkaline Phosphatase 78 U/L (38-126); Anion Gap 14 mmol/L (8-16); Bilirubin,Total 5.2 mg/dL (0.2-1.3); Blood Urea Nitrogen 25 mg/dL (9-20); Calcium 8.4 mg/dL (8.4-10.2); Carbon Dioxide 12 mmol/L (22-30); Chloride 102 mmol/L (98-107); Estimated CRCL calculation 40 ml/min; Estimated Glomerular Filt Rate 45; Glucose 103 mg/dL (65-110); Magnesium 1.9 mg/dL (1.6-2.3); Potassium 3.9 mmol/L (3.4-5.0); Sodium 128 mmol/L (137-145)
[2022-02-12 05:27] LABS: Lactic Acid Reflex 10.7 mmol/L (0.7-2.0)
[2022-02-12 05:38] LABS: Alanine Aminotransferase 41 U/L (6-50); Aspartate Amino Transferase 65 U/L (17-59)
[2022-02-12 05:39] LABS: Band Neutrophils Percent 5 % (0-6); Lymphocytes Absolute Manual 1.68 K/mm3 (1.1-4.5); Monocytes Absolute Manual 0.67 K/mm3 (0.1-0.90); Monocytes Percent Manual 2 % (3-9); Neutrophils Absolute Manual 31.34 K/mm3 (1.3-6.7); Neutrophils Percent Manual 88 % (46-73); Platelet Estimate Decreased (Adequate); Total Cells Counted 100
[2022-02-12 05:41] LABS: Burr Cells 2+ (NORMAL); Ovalocytes 1+ (NORMAL)
[2022-02-12] MEDS: SODIUM BICARBONATE 8.4% 50 MEQ/50 ML SYRINGE 100 MEQ IV PUSH (08:03)
[2022-02-12] MEDS: SODIUM BICARBONATE 8.4% 150 MEQ in DEXTROSE 5% 1,000 ML 950 ML 100 MEQ IV CONT ×2 (08:07→18:21)
[2022-02-12 08:12] LABS: Mean Platelet Volume 9.9 fl (7.4-10.4); Platelet Count Result 67 k/mm3 (150-375)
[2022-02-12] MEDS: hetaSTARCH 6%/NACL 500 ML 250 ML IV CONT (08:12)
[2022-02-12 08:20] LABS: Ammonia 49 umol/L (9-30); Lipase 46 U/L (23-300); Magnesium 1.8 mg/dL (1.6-2.3)
[2022-02-12] MEDS: MIDODRINE HCL 10 MG TABLET PO ×2 (08:43→17:40)
[2022-02-12] MEDS: allopurinoL 300 MG TABLET PO (08:43)
[2022-02-12] MEDS: PANTOPRAZOLE SODIUM IV 40 MG VIAL IV PUSH ×2 (08:43→20:42)
[2022-02-12] MEDS: LACTULOSE 20 GM/30 ML UDC PO (08:47)
[2022-02-12 08:55] LABS: INR 2.6
[2022-02-12 08:56] LABS: Partial Thromboplastin Time 52.8 SECONDS (22.3-36.8)
[2022-02-12 08:57] LABS: Fibrinogen 189 mg/dl (215-510)
--- NOTE | 2022-02-12 09:24 | PM.IMPN ---
Progress Note: A&P Assessment and Plan (1) Septic shock: Code(s): A41.9 - Sepsis, unspecified organism; R65.21 - Severe sepsis with septic shock Status: Acute Assessment and Plan: Patient's blood pressure was noted to be 66/53. He was hypoglycemic and in DIC. Glucose stable. White count has jumped to 33K. He has a metabolic acidosis related to lactic acid of 10. Platelet count is slowly dropping. He has chronic thrombocytopenia from his cirrhosis. Chest x-ray was clear on admission. Blood culture and urine cultures have been collected and are pending. Consider bowel ischemia/infarction causing the septic shock and lactic acidosis. He is on albumin. He is on norepinephrine and vasopressin. Continue broad-spectrum IV antibiotics with cefepime and vancomycin. He remains on sodium bicarb for the acidosis. Son is coming in this morning and will discuss code status and further options with the family when they arrive. Appreciate software recruiter input. (2) DIC (disseminated intravascular coagulation): Code(s): D65 - Disseminated intravascular coagulation [defibrination syndrome] Status: Acute Assessment and Plan: Patient was noted be hypotensive and hypoglycemic yesterday afternoon and a rapid response was called. Patient was oozing from IV sites and needle sticks. Lab workup was consistent with DIC. He was moved to the ICU. He received 1 unit of FFP and 1 unit of cryoprecipitate. INR is unchanged at 2.6 but PTT is higher. Fibrinogen is improved at 189. D-dimer is dropped to 5.97. Continue supportive care. Appreciate software recruiter input. (3) Portal vein thrombosis: Code(s): I81 - Portal vein thrombosis Status: Acute Assessment and Plan: Abdominal ultrasound yesterday showed complete thrombosis in the main portal vein which appears new since the CT of the abdomen done the day before. The CT of the abdomen was done with contrast. Also of interest is that now he has a large amount of perihepatic and perisplenic ascites from his cirrhosis where he had no ascites listed by the CT scan on admission. He was started on Arixtra but this is been stopped given the events overnight. Portal vein thrombosis could be related to dehydration and/or cirrhosis. Anticoagulation on hold at this time. CT scan has been repeated. (4) Lactic acidosis: Code(s): E87.2 - Acidosis Status: Acute Assessment and Plan: Lactic acid level was 10.6 last night and about unchanged this morning. Concern for bowel ischemia. Repeat CT of the abdomen pelvis has been ordered. (5) MARLENA (acute kidney injury): Code(s): N17.9 - Acute kidney failure, unspecified Status: Acute Assessment and Plan: Creatinine was 1.1 on admission. He has a baseline normal creatinine. Creatinine has climbed to 1.5. He did receive contrast so consider contrast induced nephropathy. Also consider dehydration given the lack of ascites and the fact he is on 2 diuretics. Also consider ATN as well from the severe sepsis and septic shock. He has been started on IV fluids. Continue to monitor. (6) Nausea and vomiting: Code(s): R11.2 - Nausea with vomiting, unspecified Status: Acute Assessment and Plan: Patient presents emergency room with complaints of nausea vomiting. Etiology unclear. Consider related to viral gastroenteritis. Denies symptoms currently. Repeat CT abdomen and pelvis pending (7) Hyponatremia: Code(s): E87.1 - Hypo-osmolality and hyponatremia Status: Acute Assessment and Plan: Sodium 129 on admission has been relatively stable. Most likely related to his diuretic therapy. He may be dehydrated given the lack ascites, azotemia and rising creatinine. He has also had nausea vomiting contributing to decreased intravascular volume. Continue IV fluids. Continue to hold diuretics. Monitor sodium closely to prevent over-correction. (8
[2022-02-12 09:39] LABS: D Dimer 5.97 ug/mL (<0.48)
--- NOTE | 2022-02-12 09:44 | WPDCNINT ---
Assessment and Plan Assessment and plan (1) Septic shock: Code(s): A41.9 - Sepsis, unspecified organism; R65.21 - Severe sepsis with septic shock Status: Acute Assessment and Plan: Patient was transferred to the medical floor on 02/11/2022 with hypotension, altered mental status. Has received adequate IV fluids, 30 mL/kg. Patient also received Hespan albumin -currently on maximum dose of Levophed and vasopressin, MAP > 55 mmHg -lactic acid remains elevated could be related to decrease clearance from liver disease and acute kidney injury -could be increase related to increased fluctuance septic shock, possible ischemia as patient has portal vein thrombosis -continue cefepime and vancomycin -lactic acid is 10.7 this morning and has not changed much despite giving adequate fluid boluss and maintenance IV fluids -02/11/2022: Blood and urine cultures have been obtained and pending -source: Possible abdominal, UTI, pneumonia -02/12/2022: Repeat CT scan of the abdomen and pelvis: 1. Small bilateral pleural effusions with underlying bibasilar airspace disease which may represent atelectasis and/or pneumonia. 2: Dilated small bowel extending to surgical anastomosis in the left mid abdomen, suspicious for at least partial small bowel obstruction. 3: Periumbilical hernia containing fat and multiple collateral vessels. 4: Cirrhosis with portal hypertension. No free air or pneumatosis but bowel ischemia not ruled out. Continue IV abx and bowel rest. SBO related to septic shock. NGT placement if family agrees to continue with full care. (2) MARLENA (acute kidney injury): Code(s): N17.9 - Acute kidney failure, unspecified Status: Acute Assessment and Plan: Acute kidney injury likely related to hypotension, septic shock, ATN, hypovolemia -urine output has been low, patient has had worsening creatinine -will switch maintenance fluids to sodium bicarbonate -monitor urine output, electrolytes and renal function (3) Portal vein thrombosis: Code(s): I81 - Portal vein thrombosis Status: Acute Assessment and Plan: Portal vein thrombosis on ultrasound done on 02/11/22, was started on Arixtra after the hospitalist discussed with GI, this was stopped overnight given patient was oozing from his IV lines due to being in DIC. -patient will need heparin infusion, will discuss with patient's son before starting heparin infusion as his platelets are down to 63. (4) DIC (disseminated intravascular coagulation): Code(s): D65 - Disseminated intravascular coagulation [defibrination syndrome] Status: Acute Assessment and Plan: DIC likely related to septic shock, liver dysfunction -patient has received 1 unit of FFP and 1 unit of cryoprecipitate prior to inserting the central line. INR remains 2.6 and PTT is much higher, fibrinogen is 189, D-dimer is 5.97. (5) Small bowel obstruction: Code(s): K56.609 - Unspecified intestinal obstruction, unspecified as to partial versus complete obstruction Status: Acute Assessment and Plan: Small-bowel obstruction as seen on CT scan of the abdomen and pelvis done this morning. -patient will need a G-tube, will discuss with son (6) Hepatic cirrhosis: Code(s): K74.60 - Unspecified cirrhosis of liver Status: Acute Assessment and Plan: Patient with chronic cirrhosis, elevated bilirubin, thrombocytopenia -the with portal vein thrombosis -no evidence of ascites on CT scan -chronic hypoalbuminemia -spironolactone and furosemide currently on hold (7) Hyponatremia: Code(s): E87.1 - Hypo-osmolality and hyponatremia Status: Acute Assessment and Plan: Hyponatremia likely related to cirrhosis, septic shock, acute kidney injury -continue bicarb infusion at this time -hold diuretics Additional Plan Discussed with Erich, patient's son and updated with patient's condition and plan of care. We discussed in details in the room, ex
[2022-02-12] MEDS: NOREPINEPHRINE BITARTRATE 16 MG in DEXTROSE 5% IN WATER 234 ML 28.13 ML IV CONT (13:36)
--- NOTE | 2022-02-12 14:20 | WPDGIPROGNO ---
Progress Note: A&P Assessment and Plan (1) Nausea and vomiting: Code(s): R11.2 - Nausea with vomiting, unspecified Status: Acute Assessment and Plan: this may well be due to his electrolyte imbalance. He has a regular diet ordered. We will see how he does with that 02/12. Because of hypoactive bowel sounds an abnormal CT scan showing possible partial small-bowel obstruction, he is NPO at the present time (2) Hyperbilirubinemia: Code(s): E80.6 - Other disorders of bilirubin metabolism Status: Acute Assessment and Plan: his bilirubin has been increasing gradually. It is now up to 6.3. Also albumin level is lower than it had been. This correlates with his progressive liver disease (3) Altered mental status: Code(s): R41.82 - Altered mental status, unspecified Status: Acute Assessment and Plan: his confusion is likely due to low sodium. However his ammonia level is slightly elevated now 2 in and had not been elevated in the past. Will start him on lactulose 02/12 blood ammonia level is higher, 49 today (4) Hyponatremia: Code(s): E87.1 - Hypo-osmolality and hyponatremia Status: Acute Assessment and Plan: sodium was 129 yesterday, 128 today. We will need to cut back on his diuretics at discharge 02/12 sodium remains low. (5) Chronic liver disease and cirrhosis: Code(s): K74.60 - Unspecified cirrhosis of liver; K76.9 - Liver disease, unspecified Status: Acute Assessment and Plan: patient and his son are aware of the fact that this is a progressive disease and complications work or. They were offered consultation with pin worker at [facility] of the [facility] but the patient declined. He states that he is willing to accept whatever happens knowing that his course will be gradually down hill. He has moved in with his son who can take care of him, as he had been living alone 02/12 I spoke to his son who was at bedside. He stated that he and his father have been talking and again agree that they do not want him to go to [facility]. They are both willing to accept what happens, knowing that he has end-stage liver disease. We had discussed this extensively in the office previously. They are going to consider hospice care (6) Ascites: Qualifiers: Ascites type: other type Qualified Code(s): R18.8 - Other ascites Code(s): R18.8 - Other ascites Status: Acute Assessment and Plan: as he has very little ascites now compared to what he had over the past few months. He may develop more now with portal vein thrombosis. He has she was scheduled for paracentesis to be done in a couple of days as an outpatient but I do not think he will need that at this time. There was not a significant amount of of free ascitic fluid seen on imaging. (7) Esophageal varices: Code(s): I85.00 - Esophageal varices without bleeding Status: Acute Assessment and Plan: When he had his last endoscopy, the varices were grade 1 and he has been on propranolol to prevent bleeding. I think that he will tolerate the anticoagulation for his portal vein well but certainly we will need to watch for bleeding. (8) Azotemia: Code(s): R79.89 - Other specified abnormal findings of blood chemistry Status: Acute Assessment and Plan: His BUN is up 24 which is high for him and in fact anybody with cirrhosis. This again is likely due to the diuretics. Will need to watch for hepatorenal syndrome but I think cutting back on diuretics will be sufficient (9) Small bowel obstruction: Code(s): K56.609 - Unspecified intestinal obstruction, unspecified as to partial versus complete obstruction Status: Acute Assessment and Plan: he is NPO for now. He does not have symptoms of obstruction. There has been no vomiting but the lack of bowel sounds or I should say very hypoactive bowel sounds would be
[2022-02-12] MEDS: HYDROCORTISONE SODIUM SUCCINATE 100 MG/2 ML VIAL IV PUSH ×2 (15:03→21:40)
--- NOTE | 2022-02-12 18:36 | PM.CNGS ---
Assessment and Plan Assessment and plan (1) Septic shock: Code(s): A41.9 - Sepsis, unspecified organism; R65.21 - Severe sepsis with septic shock Status: Acute Assessment and Plan: I have reviewed the CTs and discussed the patient's current condition with the patient and his son at the bedside. He has multiple problems that would make surgical intervention extremely high risk. Due to his cirrhosis, portal hypertension, coagulopathy he would likely survive a major abdominal surgery. He is also on multiple vasopressors which makes surgery extremely high risk. He very possibly could have ischemic bowel secondary to the portal vein thrombosis, but this would likely involve his entire bowel and resection would not give patient a viable option. Given his current condition, the family is opting for hospice evaluation. I would not recommend any surgical intervention as this would likely just cause more suffering and would have very low chance of survival. (2) Portal vein thrombosis: Code(s): I81 - Portal vein thrombosis Status: Acute (3) Chronic liver disease and cirrhosis: Code(s): K74.60 - Unspecified cirrhosis of liver; K76.9 - Liver disease, unspecified Status: Acute (4) Esophageal varices: Code(s): I85.00 - Esophageal varices without bleeding Status: Acute (5) Ascites: Qualifiers: Ascites type: other type Qualified Code(s): R18.8 - Other ascites Code(s): R18.8 - Other ascites Status: Acute History of Present Illness Consult details Consult date: 02/12/22 Reason for consult: other (Septic shock, portal venous thrombosis) Requesting physician: Heber Pina MD Narrative: This is a 81-year-old man who I am asked to see for possible ischemic bowel due to portal venous thrombosis. He is currently in the intensive care unit and is on multiple pressors. He is not intubated yet but breathing is somewhat labored. History is difficult to obtain from patient, but son is at bedside and able to answer some questions. He has a history of cirrhosis but patient has chosen not to seek being placed on transplant list due to multiple co factors. Patient presented to the emergency department on 02/10 with altered mental status, weakness, and vomiting. CT at that time showed a fecal impaction, cirrhosis with portal venous hypertension, and moderate ascites. An abdominal ultrasound yesterday showed evidence of portal venous thrombosis. He became hypotensive overnight was transferred to the intensive care unit. There was some discussion of transfer to [facility] last night, but per the dialysis clinical manager the family was refusing. He is now found to be in septic shock and is multiple vasopressors. He has elevated lactic acid level. He also has thrombocytopenia and elevated INR and was noted to be bleeding very easily. He is a high risk candidate for full anticoagulation. Review of Systems Review of Systems: ROS unobtainable: Yes unobtainable due to medical condition and unobtainable due to mental status [facility] Past Medical History Medical History Adenomatous colon polyp BPH (benign prostatic hyperplasia) Cirrhosis Coagulopathy Diverticulitis Duodenal ulcer Esophageal stricture Esophageal varices GERD (gastroesophageal reflux disease) Gout [place] (hard of hearing) Hx SBO Hypertension Kidney stones Lung nodule Portal hypertension Portal hypertensive gastropathy Skin cancer Thrombocytopenia due to hypersplenism Vitamin B 12 deficiency Surgical History Surgical History H/O colonoscopy H/O esophagogastroduodenoscopy H/O hernia repair History of bowel resection Hx laparoscopic cholecystectomy Hx of appendectomy S/P TURP Family History Family History Father Acute myocardial infarction Family history of i
[2022-02-12] MEDS: NOREPINEPHRINE BITARTRATE 16 MG in DEXTROSE 5% IN WATER 234 ML 15 ML IV CONT (23:04)
[2022-02-13] VITALS: BP 119/61; PULSE 92; RESP 18; TEMP 36.6; O2SAT 97
[2022-02-13 02:00] VITALS: BP 114/67; PULSE 92; PULSE 93; RESP 20; O2SAT 98
[2022-02-13 04:00] VITALS: BP 117/61; PULSE 92; PULSE 93; RESP 18; TEMP 36.5; O2SAT 97
[2022-02-13 06:00] VITALS: BP 108/61; PULSE 86; RESP 18; TEMP 36.5; O2SAT 97
[2022-02-13 06:00] LABS: Alanine Aminotransferase 38 U/L (6-50)
[2022-02-13 06:03] LABS: Albumin Level 2.3 g/dL (3.5-5.1); Alkaline Phosphatase 51 U/L (38-126); Anion Gap 12 mmol/L (8-16); Aspartate Amino Transferase 62 U/L (17-59); Bilirubin,Total 4.4 mg/dL (0.2-1.3); Blood Urea Nitrogen 25 mg/dL (9-20); Calcium 8.3 mg/dL (8.4-10.2); Carbon Dioxide 23 mmol/L (22-30); Chloride 97 mmol/L (98-107); Estimated CRCL calculation 64 ml/min; Estimated Glomerular Filt Rate > 60; Glucose 131 mg/dL (65-110); Magnesium 1.7 mg/dL (1.6-2.3); Phosphorus 2.6 mg/dL (2.5-4.5); Potassium 3.9 mmol/L (3.4-5.0); Sodium 132 mmol/L (137-145)
[2022-02-13] MEDS: ALBUMIN HUMAN 25% 12.5 GM/50ML 50 ML IVPB (06:03)
[2022-02-13] MEDS: HYDROCORTISONE SODIUM SUCCINATE 100 MG/2 ML VIAL IV PUSH (06:03)
[2022-02-13] MEDS: SODIUM BICARBONATE 8.4% 150 MEQ in DEXTROSE 5% 1,000 ML 950 ML 100 MEQ IV CONT (06:04)
[2022-02-13] MEDS: CENTRAL LINE FLUSH 10 ML IV PUSH (06:04)
[2022-02-13 06:14] LABS: Lactic Acid Reflex 8.8 mmol/L (0.7-2.0)
[2022-02-13 07:20] LABS: Hematocrit 26.1 % (42.0-52.0); Hemoglobin 9.1 g/dL (14.0-18.0); Mean Corpuscular HGB Conc 34.9 g/dl (32-36); Mean Corpuscular Volume 103.2 fl (80-100); Mean Platelet Volume 10.8 fl (7.4-10.4); Platelet Count Result 34 k/mm3 (150-375); Red Blood Count 2.53 M/mm3 (4.6-6.20); Red Cell Distribution Width 15.7 % (11.5-14.5); White Blood Count 33.5 K/mm3 (4.5-10.0)
[2022-02-13 08:00] VITALS: BP 109/67; PULSE 119; PULSE 123; RESP 15; TEMP 36.7; O2SAT 94; O2SAT 98
[2022-02-13 08:19] LABS: Band Neutrophils Percent 19 % (0-6); Lymphocytes Absolute Manual 0.33 K/mm3 (1.1-4.5); Monocytes Absolute Manual 0.67 K/mm3 (0.1-0.90); Monocytes Percent Manual 2 % (3-9); Neutrophils Absolute Manual 32.49 K/mm3 (1.3-6.7); Neutrophils Percent Manual 78 % (46-73); Ovalocytes 1+ (NORMAL); Platelet Estimate Decreased (Adequate); Total Cells Counted 100
[2022-02-13 08:20] LABS: Anisocytosis 1+ (NORMAL)
[2022-02-13] MEDS: PANTOPRAZOLE SODIUM IV 40 MG VIAL IV PUSH (08:33)
--- NOTE | 2022-02-13 08:37 | PM.IMPN ---
Progress Note: A&P Assessment and Plan (1) Septic shock: Code(s): A41.9 - Sepsis, unspecified organism; R65.21 - Severe sepsis with septic shock Status: Acute Assessment and Plan: Patient's blood pressure dropped to 66/53 with hypoglycemic, in DIC and now positive blood cultures consistent with septic shock with septicemia so moved to ICU. Glucose treated. White count has jumped to 33K and now without change. He had a metabolic acidosis related to lactic acid of 10 but better with bicarb drip; Lactic acid down to 8.8. Platelet count continues to drop. He has chronic thrombocytopenia from his cirrhosis. Chest x-ray was clear on admission. Blood culture positive (2of2) with gram negative bacillia; Urine cultures pending. Concern for bowel ischemia/infarction causing the septic shock, septicemia and lactic acidosis. He is on albumin. He is on norepinephrine and vasopressin but able to wean these. Continue broad-spectrum IV antibiotics with cefepime and vancomycin. He remains on sodium bicarb for the acidosis. Hospice being considered and son is coming in this morning to discuss further. Appreciate scholarship counselor input. (2) DIC (disseminated intravascular coagulation): Code(s): D65 - Disseminated intravascular coagulation [defibrination syndrome] Status: Acute Assessment and Plan: Patient was noted be hypotensive and hypoglycemic yesterday afternoon and a rapid response was called. Patient was oozing from IV sites and needle sticks. Lab workup was consistent with DIC. He was moved to the ICU. He received 1 unit of FFP and 1 unit of cryoprecipitate. Continue supportive care. Appreciate scholarship counselor input. (3) Portal vein thrombosis: Code(s): I81 - Portal vein thrombosis Status: Acute Assessment and Plan: Abdominal ultrasound 02/11 showed complete thrombosis in the main portal vein which appears new since the CT of the abdomen with contrast done the day before. Also of interest is that now he has a large amount of perihepatic and perisplenic ascites by US where he had no ascites listed by the CT scan the day before. He was started on Arixtra but this is been stopped given the events as mentioned above. Portal vein thrombosis could be related to dehydration and/or cirrhosis. Repeat CT Abd/Pelvis yesterday noted with dilated bowel concerning for SBO. Ascites could be related to bowel ischemia. General Surgery consulted but felt the patietn was too high of risk for intervention. Anticoagulation on hold at this time. (4) Small bowel obstruction: Code(s): K56.609 - Unspecified intestinal obstruction, unspecified as to partial versus complete obstruction Status: Acute Assessment and Plan: CT scan showing SBO. Now having BMs. lactulose resumed. Follow. Repeat KUB if son wants to continue current care plan (5) Lactic acidosis: Code(s): E87.2 - Acidosis Status: Acute Assessment and Plan: Lactic acid level increased to 10.6 with concerns for bowel ischemia. As above. (6) MARLENA (acute kidney injury): Code(s): N17.9 - Acute kidney failure, unspecified Status: Acute Assessment and Plan: Creatinine was 1.1 on admission. He has a baseline normal creatinine. Creatinine has climbed to 1.5. He did receive contrast so consider contrast induced nephropathy. Also consider dehydration given the lack of ascites and the fact he is on 2 diuretics on admission. Also consider ATN as well from the severe sepsis and septic shock. He was started on IV fluids. Creatinine better today at 0.9. Continue to monitor. (7) Nausea and vomiting: Code(s): R11.2 - Nausea with vomiting, unspecified Status: Acute Assessment and Plan: Patient presents emergency room with complaints of nausea vomiting. Etiology unclear. Consider related to viral gastroenteritis. Now has evidence of SBO. Denies symptoms currently. As above. (8) H
[2022-02-13] MEDS: MIDODRINE HCL 10 MG TABLET PO (09:02)
[2022-02-13] MEDS: LACTULOSE 20 GM/30 ML UDC PO (09:02)
[2022-02-13] MEDS: allopurinoL 300 MG TABLET PO (09:02)
[2022-02-13] MEDS: MAGNESIUM SULF 2 GM/WATER 50ML 2 GM/50 ML BAG IVPB (09:02)
[2022-02-13 09:13] LABS: Reflex Lactic Acid Yes or No Add Lactic
[2022-02-13 09:52] LABS: Lactic Acid 7.4 mmol/L (0.7-2.0)
[2022-02-13 10:00] VITALS: BP 100/69; PULSE 120; RESP 19; TEMP 36.5; O2SAT 94
--- NOTE | 2022-02-13 10:48 | WPDINTPN ---
Progress Note: A&P Assessment and Plan (1) Septic shock: Code(s): A41.9 - Sepsis, unspecified organism; R65.21 - Severe sepsis with septic shock Status: Acute Assessment and Plan: Patient was transferred to the medical floor on 02/11/2022 with hypotension, altered mental status. Has received adequate IV fluids, 30 mL/kg. Patient also received Hespan albumin -continues to be on Levophed and vasopressin, continue titration to maintain adequate map -lactic acid remains elevated could be related to decrease clearance from liver disease and acute kidney injury -could be increase related to increased septic shock, possible ischemia as patient has portal vein thrombosis -continue cefepime and vancomycin -02/11/2022: Blood and urine cultures have been obtained and pending -source: Possible abdominal, UTI, pneumonia -02/12/2022: Repeat CT scan of the abdomen and pelvis: 1. Small bilateral pleural effusions with underlying bibasilar airspace disease which may represent atelectasis and/or pneumonia. 2: Dilated small bowel extending to surgical anastomosis in the left mid abdomen, suspicious for at least partial small bowel obstruction. 3: Periumbilical hernia containing fat and multiple collateral vessels. 4: Cirrhosis with portal hypertension. No free air or pneumatosis but bowel ischemia not ruled out. Continue IV abx and bowel rest. SBO related to septic shock. NGT placement if family agrees to continue with full care. (2) MARLENA (acute kidney injury): Code(s): N17.9 - Acute kidney failure, unspecified Status: Acute Assessment and Plan: Acute kidney injury likely related to hypotension, septic shock, ATN, hypovolemia -urine output has been low, although creatinine has been improving -currently on IV fluids with sodium bicarbonate. I will decrease rate patient is overall volume overloaded -monitor urine output, electrolytes and renal function (3) Portal vein thrombosis: Code(s): I81 - Portal vein thrombosis Status: Acute Assessment and Plan: Portal vein thrombosis on ultrasound done on 02/11/22, was started on Arixtra after the hospitalist discussed with GI, this was stopped overnight given patient was oozing from his IV lines due to being in DIC. Anticoagulation has been held since then due to coagulopathy and thrombocytopenia (4) DIC (disseminated intravascular coagulation): Code(s): D65 - Disseminated intravascular coagulation [defibrination syndrome] Status: Acute Assessment and Plan: DIC likely related to septic shock, liver dysfunction -patient has received 1 unit of FFP and 1 unit of cryoprecipitate prior to inserting the central line. Last INR 2.6 Transfuse as needed (5) Small bowel obstruction: Code(s): K56.609 - Unspecified intestinal obstruction, unspecified as to partial versus complete obstruction Status: Acute Assessment and Plan: Small-bowel obstruction as seen on CT scan of the abdomen and pelvis done yesterday (6) Hepatic cirrhosis: Code(s): K74.60 - Unspecified cirrhosis of liver Status: Acute Assessment and Plan: Patient with chronic cirrhosis, elevated bilirubin, thrombocytopenia -the with portal vein thrombosis -no evidence of ascites on CT scan -chronic hypoalbuminemia -spironolactone and furosemide currently on hold (7) Hyponatremia: Code(s): E87.1 - Hypo-osmolality and hyponatremia Status: Acute Assessment and Plan: Hyponatremia likely related to cirrhosis, septic shock, acute kidney injury -continue bicarb infusion at this time -hold diuretics -improving Additional Plan Patient is currently DNR and family is exploring hospice care. In son is supposed to meet with hospice services this morning and make further decision. He is inclining towards comfort care and hospice. Code status: DNR Critical care time spent: 30 minutes This dictation may have been done utilizing a voice nickie
--- NOTE | 2022-02-13 11:31 | PM.DS ---
DS: Admitting Diagnosis Discharge Date 02/13/22 Admitting Diagnosis Nausea and vomiting. DS: Discharge Diagnosis Discharge Diagnosis (1) Septic shock: Code(s): A41.9 - Sepsis, unspecified organism; R65.21 - Severe sepsis with septic shock Status: Acute (2) DIC (disseminated intravascular coagulation): Code(s): D65 - Disseminated intravascular coagulation [defibrination syndrome] Status: Acute (3) Portal vein thrombosis: Code(s): I81 - Portal vein thrombosis Status: Acute (4) Small bowel obstruction: Code(s): K56.609 - Unspecified intestinal obstruction, unspecified as to partial versus complete obstruction Status: Acute (5) Lactic acidosis: Code(s): E87.2 - Acidosis Status: Acute (6) MARLENA (acute kidney injury): Code(s): N17.9 - Acute kidney failure, unspecified Status: Acute (7) Nausea and vomiting: Code(s): R11.2 - Nausea with vomiting, unspecified Status: Acute (8) Hyponatremia: Code(s): E87.1 - Hypo-osmolality and hyponatremia Status: Acute (9) Altered mental status: Code(s): R41.82 - Altered mental status, unspecified Status: Acute (10) Fecal impaction in rectum: Code(s): K56.41 - Fecal impaction Status: Acute (11) Hepatic cirrhosis: Code(s): K74.60 - Unspecified cirrhosis of liver Status: Acute DS: Summary Hospital Course Reason for hospitalization: 81yo male with hx of cirrhosis, portal HTN, duodenal ulcer, esophageal stricture and esophageal varices who is brought to the emergency room due to altered mental status, nausea, vomiting and diarrhea. Please see H&P for details. Hospital Course: Patient presents emergency room with complaints of nausea vomiting. Patient was confused on admission.? His ammonia level was 38.? CT of the brain showed no acute findings.?After admission, his blood pressure dropped to 66/53 with hypoglycemic and noted to be DIC so he was moved wto ICU. He developed positive blood cultures consistent with severe sepsis with shock and septicemia. White count has jumped to 33K and had a metabolic acidosis related to lactic acid of 10.? Platelet count continues to drop to 34K.?Blood culture positive (2of2) with gram negative bacilli; Urine cultures pending.? Concern for bowel ischemia/infarction causing the septic shock, septicemia and lactic acidosis. He was on albumin.? He required norepinephrine and vasopressin. He was also treated with broad-spectrum IV antibiotics with cefepime and vancomycin.?Spoke with family about hospice and they wished to proceed with hospice care. Family signed with hospice. Plan to start comfort measures with morphine drip and stop pressors and other treatments. Status at Discharge Cognitive/behavioral status at discharge: Critical Time Spent with Patient Time attestation: Total time spent providing and/or coordinating discharge services: 35 minutes Exam Narrative: AF 98.1 109/67 119 15 98% 3L Gen - NARD lying semi-recumbent in bed Chest - lungs clear anteriorly CV - RRR S1/S2. Tele showing NSR with PACs and sinus arrhythmias; possible episodes of AFib Abd - Soft, mildly distended, +BS, diffusely tender but no rebound - Rader secured draining orange-yellow urine Ext - No pedal edema. Neuro - awake, dulled with delay in answering questions. speech clear. Skin - Warm and dry DS: Data Data Completed and Pending Labs on day of discharge: Labs from last 24 hours 02/13/22 02/13/22 02/13/22 09:25 04:11 04:11 WBC RBC Hgb Hct MCV MCH MCHC RDW Plt Count MPV Immature Gran % (Auto) Neut % (Auto) Lymph % (Auto) [place] % (Auto) Eos % (Auto) Baso % (Auto) Lymph # (Auto) [place] # (Auto) Eos # (Auto) Baso # (Auto) Abs Immat Gran (auto) Absolute Neuts (auto) Absolute Nucleated RBC Total Counted Neutrophils % (Manual) Band Giselle
== END 2022-02-13 11:45 | disposition hospice, inpatient (51) | DRG 871 ==
LOC: ANHED 19:11 → ANH3MEDSUR 21:20 → ANHICU 02-11 18:43
PROVIDERS: Emergency Medicine; Internal Medicine; Nurse Practitioner Family; Physician Assistant; Admitting Provider Internal Medicine; Emergency Provider Emergency Medicine; PCP Internal Medicine; Visit Provider Internal Medicine
DX: A41.9 Sepsis, unspecified organism (principal); R65.21 Severe sepsis with septic shock; D65 Disseminated intravascular coagulation [defibrination syndrome]; I81 Portal vein thrombosis; N17.0 Acute kidney failure with tubular necrosis; E87.2 Acidosis; E87.1 Hypo-osmolality and hyponatremia; I85.00 Esophageal varices without bleeding; R18.8 Other ascites; K56.600 Partial intestinal obstruction, unspecified as to cause; Z20.822 Contact with and (suspected) exposure to COVID-19; E16.2 Hypoglycemia, unspecified; K56.41 Fecal impaction; I45.81 Long QT syndrome; K74.60 Unspecified cirrhosis of liver; D69.59 Other secondary thrombocytopenia; N40.0 Benign prostatic hyperplasia without lower urinary tract symptoms; K21.9 Gastro-esophageal reflux disease without esophagitis; I10 Essential (primary) hypertension; R91.1 Solitary pulmonary nodule; E53.8 Deficiency of other specified B group vitamins; Z90.49 Acquired absence of other specified parts of digestive tract; Z85.828 Personal history of other malignant neoplasm of skin; E86.0 Dehydration
CPT/HCPCS: 36415; 36430; 51701; 70450; 71046; 74176; 74177; 76705; 80053; 81001; 82140; 82550; 82948; 83605; 83690; 83735; 84100; 85025; 85049; 85055; 85380; 85384; 85610; 85730; 86900; 86901; 87040; 87077; 87086; 87186; 93005; 96361; 96365; 96366; 96367; 96368; 96372; 96375; 96376; 99285; A9270; C1751; C9113; C9803; G0378; J0692; J1652; J1720; J2405; J3370; J3475; J7030; J7050; J7060; J7070; P9012; P9017; P9047; Q9967; U0003; U0005

== ENCOUNTER 2022-02-13 12:05 | HOS | payer OTHER, MEDICARE, SELFPAY ==
--- OUTSIDE RECORDS SUMMARY | 2022-02-13 11:54 | XMS_ITS | Encounter Summary ---
:1940 Author Organization Department [facility] Address [address] [place] [address] Care Team Providers Name Role Phone MARU BOLANOS Primary Care Provider Unavailable Insurance Providers: All historical and current Section Date Range: From patient's date of to the date document was created.This section includes the names of all active insurance providers for the patient. Insurance Type of Plan Start of End of Group Member Insurance Policy P atient's Provider Coverage Name Policy Policy Number ID Provider's Hooper's Relationship Coverage Coverage Telephone Name to Policy Number Hooper ANTHEM MEDICARE MEDIC Aug 23, [id number] 855 SAMINA ADAMES IENT [place] 2019 [id number] [phone] MES JADEN SUPPL EMEMT ANTHEM MEDICARE MEDIC Aug 23, [id number] 888 SAMINA ADAMES IENT [place] 2019 [id number] [phone] MES JADEN SUPPL EM[place] AN[employer] MEDICARE MEDIC Aug 23, [id number] 800 SAMINA ADAMES IENT [place] 2019 [id number] [phone] MES [place] Aug 23, [id number] 800 SAMINA ADAMES TIENT SUPPLEMEN ARE 2019 [id number] [phone] MES JADEN SUPPL EMEMT BLUE CROSS RETIREE
--- OUTSIDE RECORDS SUMMARY | 2022-02-13 11:54 | XMS_ITS | Encounter Summary ---
:1940 Author Organization [facility] Address [address] [place] [address] Care Team Providers Name Role Phone MARU [...] Number Hooper ANTHEM MEDICARE MEDIC Aug 23, [id number] 855 SAMINA ADAMES IENT BCBS [place] 2019 [id number] [phone] MES JADEN SUPPL [employer] AN[employer] MEDICARE MEDIC Aug 23, [id number] 888 SAMINA ADAMES [place]ENT [place] 2019 [id number] [phone] MES JADEN SUPPL [employer] [employer] MEDICARE MEDIC Aug 23, [id number] 800 SAMINA ADAMES [place] 2019 [id number] [phone] M[place] Aug 23, [id number] 800 SAMINA ADAMES TIENT [place]MEN [place] 2019 [id number] [phone] MES JADEN SUPPL [employer]T [employer]OSS RETIREE IST30 De
--- OUTSIDE RECORDS SUMMARY | 2022-02-13 11:54 | XMS_ITS | Encounter Summary ---
:1940 Author Organization [facility] Address [address] [place] [address] Care Team Providers Name Role Phone MARU [...] Number Hooper AN[employer]M MEDICARE MEDIC Aug 23, [id number] 855 SAMINA ADAMES IENT BCBS [place] 2020 [id number] [phone] MES JADEN SUPPL [employer] AN[employer] MEDICARE MEDIC Aug 23, [id number] 888 SAMINA ADAMES [place] 2019 [id number] [phone] MES JADEN SUPPL [employer] AN[employer] MEDICARE MEDIC Aug 23, [id number] 800 SAMINA ADAMES [place] 2019 [id number] [phone] [place] Aug 23, [id number] 800 SAMINA ADAMES TIENT SUPP[place]MEN ARE 2019 [id number] [phone] MES JADEN SUPPL [employer]T [employer] RETIREE IST30 D
--- OUTSIDE RECORDS SUMMARY | 2022-02-13 11:54 | XMS_ITS | Encounter Summary ---
:[address] [facility] Address [address] [place] [address] Care Team Providers Name Role Phone MARU [...] Number Hooper AN[employer]M MEDICARE MEDIC Aug 23, [id number] 855 SAMINA ADAMES IENT BCBS [place] 2019 [id number] [phone] MES JADEN SUPPL EMEM[place] AN[employer]M MEDICARE MEDIC Aug 23, [id number] 888 SAMINA ADAMES [place] 2019 [id number] [phone] MES JADEN SUPPL [employer] AN[employer] MEDICARE MEDIC Aug 23, [id number] 800 SAMINA ADAMES [place] 2019 [id number] [phone] [place] Aug 23, [id number] 800 SAMINA ADAMES TIENT SUPP[place]MEN ARE 2020 [id number] [phone] MES JADEN SUPPL EMEMT [employer]OSS RETIREE IST30
--- OUTSIDE RECORDS SUMMARY | 2022-02-13 11:54 | XMS_ITS | Encounter Summary ---
:1940 Author Organization [facility] Address [address] [place] [address] Care Team Providers Name Role Phone MARU [...] Number Hooper ANTHEM MEDICARE MEDIC Aug 23, [id number] 855 SAMINA ADAMES IENT [place] 2019 [id number] [phone] MES JADEN SUPPL [employer] AN[employer]M MEDICARE MEDIC Aug 23, [id number] 888 SAMINA ADAMES [place] 2019 [id number] [phone] MES JADEN SUPPL EM[employer] AN[employer] MEDICARE MEDIC Aug 23, [id number] 800 SAMINA ADAMES [place] 2019 [id number] [phone] [place] Aug 23, [id number] 800 SAMINA ADAMES TIENT [place]PP[place]MEN [place] 2019 [id number] [phone] MES JADEN SUPPL EMEMT [employer] CROSS RETIREE IST30 Aug
--- OUTSIDE RECORDS SUMMARY | 2022-02-13 11:54 | XMS_ITS | Continuity of Care Document ---
:1940 Author Organization [facility] Care Team Providers Name Role Phone [facility] Unavailable Unavailable Problems Combined list of problems from Department of Defense and Veterans Affairs facilities. It does not include entries that were removed or entered in error. Problem Status Onset Problem Date of Comments Source Date Type Resolution Gout (SNOMED CT Active Condition [facility] [place] [id number]) 011 [facility] Diverticulosis, Active Condition Oct 31, [facility] colon 004 2004 Entered [facility] By: VICTOR MANUEL CONRAD Comment: C-scope DVL Other diseases of Inactive Condition 04/13/2021 Oct 31, [place] lung (ICD-9-CM 004 2004 Entered [facility] 518.89) By: VICTOR MANUEL CONRAD Comment: lung nodule by CT scan Jul 30, 2005 Entered By: VICTOR MANUEL CONRAD Comment: needs repeat CT scan lung December 2005 and June 2006 Edema Active Condition [facility] Elevated Liver Active Condition [place] Enzymes (ICD-9-CM [facility] 794.8)
--- OUTSIDE RECORDS SUMMARY | 2022-02-13 11:55 | XMS_ITS | Encounter Summary ---
:1940 Author Organization [facility] Address [address] [place] [address] Care Team Providers Name Role Phone MARU [...] Number Hooper ANTHEM MEDICARE MEDIC Aug 23, [id number] 855 SAMINA ADAMES IENT [place] 2019 [id number] [phone] MES JADEN SUPPL EMEMT ANTHEM MEDICARE MEDIC Aug 23, [id number] 888 SAMINA ADAMES [place] 2019 [id number] [phone] MES JADEN SUPPL EM[employer] AN[employer] MEDICARE MEDIC Aug 23, [id number] 800 SAMINA ADAMES [place] 2019 [id number] [phone] [place] Aug 23, [id number] 800 SAMINA ADAMES TIENT SUPP[place]MEN ARE 2019 [id number] [phone] MES JADEN SUPPL EMEMT [employer] CROSS RETIREE IST30 Aug
--- OUTSIDE RECORDS SUMMARY | 2022-02-13 11:55 | XMS_ITS | Encounter Summary ---
:1940 Author Organization [facility] Address [address] [place] [address] Care Team Providers Name Role Phone MARU [...] Number Hooper ANTHEM MEDICARE MEDIC Aug 23, [id number] 855 SAMINA ADAMES IENT BCBS [place] 2019 [id number] [phone] MES JADEN SUPPL EM[employer] AN[employer] MEDICARE MEDIC Aug 23, [id number] 888 SAMINA ADAMES [place] 2019 [id number] [phone] MES JADEN SUPPL [employer] AN[employer] MEDICARE MEDIC Aug 23, [id number] 800 SAMINA ADAMES [place] 2019 [id number] [phone] [place] Aug 23, [id number] 800 SAMINA ADAMES TIENT SUPP[place]MEN ARE 2019 [id number] [phone] MES JADEN SUPPL EMEMT BL[employer] CROSS RETIREE IST30 Aug
--- OUTSIDE RECORDS SUMMARY | 2022-02-13 11:55 | XMS_ITS | Encounter Summary ---
:1940 Author Organization Department [facility] Address [address] [place] [address] Care Team Providers Name Role Phone MARU [...] Number Hooper ANTHEM MEDICARE MEDIC Aug 23, [id number] 855 SAMINA ADAMES IENT [place] 2019 [id number] [phone] MES JADEN SUPPL EMEM[employer] AN[employer] MEDICARE MEDIC Aug 23, [id number] 888 SAMINA ADAMES [place] 2019 [id number] [phone] MES JADEN SUPPL EM[employer] AN[employer] MEDICARE MEDIC Aug 23, [id number] 800 SAMINA ADAMES [place] 2019 [id number] [phone] [place] Aug 23, [id number] 800 SAMINA ADAMES TIENT SUPP[place]MEN ARE 2019 [id number] [phone] MES JADEN SUPPL EMEMT BL[employer] CROSS RETIREE IST30
--- OUTSIDE RECORDS SUMMARY | 2022-02-13 11:55 | XMS_ITS | Encounter Summary ---
:1940 Author Organization Department [facility] Address [address] [place] [address] Care Team Providers Name Role Phone MARU [...] Number Hooper ANTHEM MEDICARE MEDIC Aug 23, [id number] 855 SAMINA ADAMES IENT [place]BS [place] 2019 [id number] [phone] MES JADEN SUPPL EMEM[employer] AN[employer] MEDICARE MEDIC Aug 23, [id number] 888 SAMINA ADAMES [place] 2019 [id number] [phone] MES JADEN SUPPL [employer] AN[employer] MEDICARE MEDIC Aug 23, [id number] 800 SAMINA ADAMES [place] 2019 [id number] [phone] [place] Aug 23, [id number] 800 SAMINA ADAMES TIENT [place]PP[place]MEN ARE 2020 [id number] [phone] MES JADEN SUPPL EMEMT BL[employer] CROSS RETIREE IS
--- OUTSIDE RECORDS SUMMARY | 2022-02-13 11:55 | XMS_ITS | Encounter Summary ---
:1940 Author Organization Department [facility] Address [address] [place] [address] Care Team Providers Name Role Phone MARU [...] Number Hooper ANTHEM MEDICARE MEDIC Aug 23, [id number] 855 SAMINA ADAMES IENT [place]BS [place] 2019 [id number] [phone] MES JADEN SUPPL EMEMT ANTHEM MEDICARE MEDIC Aug 23, [id number] 888 SAMINA ADAMES [place] 2019 [id number] [phone] MES JADEN SUPPL EM[employer] AN[employer] MEDICARE MEDIC Aug 23, [id number] 800 SAMINA ADAMES [place] 2019 [id number] [phone] M[place] Aug 23, [id number] 800 SAMINA ADAMES TIENT SUPP[place]MEN ARE 2019 [id number] [phone] MES JADEN SUPPL EMEMT BL[employer] CROSS RETIREE IST30
--- OUTSIDE RECORDS SUMMARY | 2022-02-13 11:55 | XMS_ITS | Encounter Summary ---
:1940 Author Organization [facility] Address [address] [place] [address] Care Team Providers Name Role Phone MARU [...] Number Hooper ANTHEM MEDICARE MEDIC Aug 23, [id number] 855 SAMINA ADAMES IENT BCBS [place] 2019 [id number] [phone] MES JADEN SUPPL EMEMT ANTHE[place] MEDICARE MEDIC Aug 23, [id number] 888 SAMINA ADAMES [place] 2019 [id number] [phone] MES JADEN SUPPL EM[employer] AN[employer] MEDICARE MEDIC Aug 23, [id number] 800 SAMINA ADAMES [place] 2019 [id number] [phone] [place] Aug 23, [id number] 800 SAMINA ADAMES TIENT SUPPLEMEN ARE 2019 [id number] [phone] MES JADEN SUPPL EMEMT BL[employer] CROSS RETIREE IST30
--- OUTSIDE RECORDS SUMMARY | 2022-02-13 11:55 | XMS_ITS | Encounter Summary ---
:1940 Author Organization [facility] Address [address] [place] [address] Care Team Providers Name Role Phone MARU [...] Number Hooper ANTHEM MEDICARE MEDIC Aug 23, [id number] 855 SAMINA ADAMES IENT [place]BS [place] 2019 [id number] [phone] MES JADEN SUPPL EMEMT ANTHEM MEDICARE MEDIC Aug 23, [id number] 888 SAMINA ADAMES [place] 2019 [id number] [phone] MES JADEN SUPPL EMEMT ANTHE[place] MEDICARE MEDIC Aug 23, [id number] 800 SAMINA ADAMES [place] 2019 [id number] [phone] M[place] Aug 23, [id number] 800 SAMINA ADAMES TIENT [place]PP[place]MEN ARE 2019 [id number] [phone] MES JADEN SUPPL EMEMT BL[employer] CROSS RETIREE IST30 Aug
--- OUTSIDE RECORDS SUMMARY | 2022-02-13 11:56 | XMS_ITS | Encounter Summary ---
:[address] [facility] Address [address] [place] [address] Care Team Providers Name Role Phone MARU [...] Number Hooper ANTHEM MEDICARE MEDIC Aug 23, [id number] 855 SAMINA ADAMES IENT [place] [place] 2019 [id number] [phone] MES JADEN SUPPL EMEMT ANTHEM MEDICARE MEDIC Aug 23, [id number] 888 SAMINA ADAMES [place] 2019 [id number] [phone] MES JADEN SUPPL EM[employer] AN[employer] MEDICARE MEDIC Aug 23, [id number] 800 SAMINA ADAMES [place] 2019 [id number] [phone] MES [place] Aug 23, [id number] 800 SAMINA ADAMES TIENT SUPP[place]MEN ARE 2019 [id number] [phone] MES JADEN SUPPL EMEMT BL[employer] CROSS RETIREE I
--- OUTSIDE RECORDS SUMMARY | 2022-02-13 11:56 | XMS_ITS | Encounter Summary ---
:1940 Author Organization [facility] Address [address] [place] [address] Care Team Providers Name Role Phone MARU [...] Number Hooper ANTHEM MEDICARE MEDIC Aug 23, [id number] 855 SAMINA ADAMES IENT [place]BS [place] 2019 [id number] [phone] MES JADEN SUPPL EMEMT ANTHEM MEDICARE MEDIC Aug 23, [id number] 888 SAMINA ADAMES [place] 2019 [id number] [phone] MES JADEN SUPPL EM[employer] AN[employer] MEDICARE MEDIC Aug 23, [id number] 800 SAMINA ADAMES [place] 2019 [id number] [phone] MES [place] Aug 23, [id number] 800 SAMINA ADAMES TIENT SUPPLEMEN ARE 2019 [id number] [phone] MES JADEN SUPPL EMEMT BL[employer] CROSS RETIREE IST30 De
--- OUTSIDE RECORDS SUMMARY | 2022-02-13 11:56 | XMS_ITS | Encounter Summary ---
:1940 Author Organization [facility] Address [address] [place] [address] Care Team Providers Name Role Phone MARU [...] Number Hooper ANTHEM MEDICARE MEDIC Aug 23, [id number] 855 SAMINA ADAMES IENT [employer] [place] 2020 [id number] [phone] MES JADEN SUPPL EMEMT AN[employer] MEDICARE MEDIC Aug 23, [id number] 888 SAMINA ADAMES [place] 2019 [id number] [phone] MES JADEN SUPPL EM[employer] AN[employer] MEDICARE MEDIC Aug 23, [id number] 800 SAMINA ADAMES [place] 2019 [id number] [phone] MES [place] Aug 23, [id number] 800 SAMINA ADAMES TIENT SUPP[place]MEN ARE 2019 [id number] [phone] MES JADEN SUPPL EMEMT [employer] CROSS RETIREE IST30 D
--- OUTSIDE RECORDS SUMMARY | 2022-02-13 11:57 | XMS_ITS | Encounter Summary ---
:1940 Author Organization Department [facility] Address [address] [place] [address] Care Team Providers Name Role Phone MARU [...] Number Hooper ANTHEM MEDICARE MEDIC Aug 23, [id number] 855 SAMINA ADAMES IENT [employer]BS [place] 2019 [id number] [phone] MES JADEN SUPPL EMEMT ANTHEM MEDICARE MEDIC Aug 23, [id number] 888 SAMINA ADAMES [place] 2019 [id number] [phone] MES JADEN SUPPL EM[employer] AN[employer] MEDICARE MEDIC Aug 23, [id number] 800 SAMINA ADAMES [place] 2019 [id number] [phone] MES [place] Aug 23, [id number] 800 SAMINA ADAMES TIENT SUPPLEMEN ARE 2019 [id number] [phone] MES JADEN SUPPL EMEMT BL[employer] CROSS RETIREE IST3
--- OUTSIDE RECORDS SUMMARY | 2022-02-13 11:57 | XMS_ITS | Encounter Summary ---
:1940 Author Organization [facility] Address [address] [place] [address] Care Team Providers Name Role Phone MARU [...] Number Hooper ANTHEM MEDICARE MEDIC Aug 23, [id number] 855 SAMINA ADAMES IENT [employer]BS [place] 2019 [id number] [phone] MES JADEN SUPPL EMEMT AN[employer]M MEDICARE MEDIC Aug 23, [id number] 888 SAMINA ADAMES [place] 2019 [id number] [phone] MES JADEN SUPPL EM[employer] AN[employer] MEDICARE MEDIC Aug 23, [id number] 800 SAMINA ADAMES [place] 2019 [id number] [phone] MES [place] Aug 23, [id number] 800 SAMINA ADAMES TIENT SUPPLEMEN ARE 2019 [id number] [phone] MES JADEN SUPPL EMEMT BL[employer] CROSS RETIREE IST
--- OUTSIDE RECORDS SUMMARY | 2022-02-13 11:57 | XMS_ITS | Encounter Summary ---
:1940 Author Organization Department [facility] Address [address] [place] [address] Care Team Providers Name Role Phone MARU [...] Number Hooper ANTHEM MEDICARE MEDIC Aug 23, [id number] 855 SAMINA ADAMES IENT [employer] [place] 2019 [id number] [phone] MES JADEN SUPPL EMEMT AN[employer] MEDICARE MEDIC Aug 23, [id number] 888 SAMINA ADAMES [place] 2019 [id number] [phone] MES JADEN SUPPL EM[employer] AN[employer] MEDICARE MEDIC Aug 23, [id number] 800 SAMINA ADAMES [place] 2019 [id number] [phone] MES [place] Aug 23, [id number] 800 SAMINA ADAMES TIENT SUPPLEMEN ARE 2019 [id number] [phone] MES JADEN SUPPL EMEMT BL[employer] CROSS RETIREE I
--- OUTSIDE RECORDS SUMMARY | 2022-02-13 11:57 | XMS_ITS | Encounter Summary ---
:[address] [facility] Address [address] [place] [address] Care Team Providers Name Role Phone MARU [...] Number Hooper ANTHEM MEDICARE MEDIC Aug 23, [id number] 855 SAMINA ADAMES IENT [employer] [place] 2019 [id number] [phone] MES JADEN SUPPL EMEMT AN[employer]M MEDICARE MEDIC Aug 23, [id number] 888 SAMINA ADAMES [place] 2019 [id number] [phone] MES JADEN SUPPL EM[employer] AN[employer] MEDICARE MEDIC Aug 23, [id number] 800 SAMINA ADAMES [place] 2019 [id number] [phone] MES [place] Aug 23, [id number] 800 SAMINA ADAMES TIENT SUPPLEMEN ARE 2019 [id number] [phone] MES JADEN SUPPL EMEMT BL[employer] CROSS RETIREE I
--- OUTSIDE RECORDS SUMMARY | 2022-02-13 11:57 | XMS_ITS | Encounter Summary ---
:1940 Author Organization Department [facility] Address [address] [place] [address] Care Team Providers Name Role Phone MARU [...] Number Hooper ANTHEM MEDICARE MEDIC Aug 23, [id number] 855 SAMINA ADAMES IENT [employer] [place] 2019 [id number] [phone] MES JADEN SUPPL EMEMT AN[employer]M MEDICARE MEDIC Aug 23, [id number] 888 SAMINA ADAMES [place] 2019 [id number] [phone] MES JADEN SUPPL EMEMT AN[employer] MEDICARE MEDIC Aug 23, [id number] 800 SAMINA ADAMES [place] 2019 [id number] [phone] MES [place] Aug 23, [id number] 800 SAMINA ADAMES TIENT SUPPLEMEN ARE 2019 [id number] [phone] MES JADEN SUPPL EMEMT BL[employer] CROSS RETIREE I
--- OUTSIDE RECORDS SUMMARY | 2022-02-13 11:57 | XMS_ITS | Encounter Summary ---
:1940 Author Organization [facility] Address [address] [place] [address] Care Team Providers Name Role Phone MARU [...] Number Hooper ANTHEM MEDICARE MEDIC Aug 23, [id number] 855 SAMINA ADAMES IENT [place] [place] 2020 [id number] [phone] MES JADEN SUPPL EMEMT AN[employer]M MEDICARE MEDIC Aug 23, [id number] 888 SAMINA ADAMES [place] 2019 [id number] [phone] MES JADEN SUPPL EM[employer] MEDICARE MEDIC Aug 23, [id number] 800 SAMINA ADAMES [place] 2019 [id number] [phone] MES [place] Aug 23, [id number] 800 SAMINA ADAMES TIENT SUPPLEMEN ARE 2019 [id number] [phone] MES JADEN SUPPL EMEMT BL[employer] CR[employer] RETIREE IST30
--- OUTSIDE RECORDS SUMMARY | 2022-02-13 11:57 | XMS_ITS | Encounter Summary ---
:1940 Author Organization Department [facility] Address [address] [place] [address] Care Team Providers Name Role Phone MARU [...] Number Hooper ANTHEM MEDICARE MEDIC Aug 23, [id number] 855 SAMINA ADAMES IENT [employer] [place] 2019 [id number] [phone] MES JADEN SUPPL EMEMT AN[employer]M MEDICARE MEDIC Aug 23, [id number] 888 SAMINA ADAMES [place] 2019 [id number] [phone] MES JADEN SUPPL EMEMT AN[employer] MEDICARE MEDIC Aug 23, [id number] 800 SAMINA ADAMES [place] 2019 [id number] [phone] MES [place] Aug 23, [id number] 800 SAMINA ADAMES TIENT SUPPLEMEN ARE 2019 [id number] [phone] MES JADEN SUPPL EMEMT BL[employer] CROSS RETIREE I
--- OUTSIDE RECORDS SUMMARY | 2022-02-13 11:58 | XMS_ITS | Encounter Summary ---
:1940 Author Organization [facility] Address [address] [place] [address] Care Team Providers Name Role Phone MARU [...] Number Hooper ANTHEM MEDICARE MEDIC Aug 23, [id number] 855 SAMINA ADAMES IENT [employer] [place] 2020 [id number] [phone] MES JADEN SUPPL EMEMT ANTHEM MEDICARE MEDIC Aug 23, [id number] 888 SAMINA ADAMES [place] 2019 [id number] [phone] MES JADEN SUPPL EMEMT AN[employer] MEDICARE MEDIC Aug 23, [id number] 800 SAMINA ADAMES [place] 2019 [id number] [phone] MES [place] Aug 23, [id number] 800 SAMINA ADAMES TIENT SUPPLEMEN ARE 2019 [id number] [phone] MES JADEN SUPPL EMEMT BL[employer] CROSS RETIREE IST30 D
--- OUTSIDE RECORDS SUMMARY | 2022-02-13 11:58 | XMS_ITS | Encounter Summary ---
:1940 Author Organization [facility] Address [address] [place] [address] Care Team Providers Name Role Phone MARU [...] Number [place] AN[facility] MEDICARE MEDIC Aug 23, [id number] 855 SAMINA ADMAES IENT BCBS [place] 2020 [id number] [phone] MES JADEN SUPPL EMEMT ANTHEM MEDICARE MEDIC Aug 23, [id number] 888 SAMINA ADAMES IENT [place] 2019 [id number] [phone] MES JADEN SUP[employer] [place] AN[employer] MEDICARE MEDIC Aug 23, [id number] 800 SAMINA ADAMES [place]ENT [place] 2019 [id number] [phone] MES [place] SUP[place] Aug 23, [id number] 800 SAMINA ADAMES TIENT SUPPLEMEN ARE 2019 [id number] [phone] MES JADEN SUPPL EMEMT BLUE CROSS RETIREE IST30 D
--- OUTSIDE RECORDS SUMMARY | 2022-02-13 11:58 | XMS_ITS | Encounter Summary ---
:1940 Author Organization [facility] Address [address] [place] [address] Care Team Providers Name Role Phone MARU [...] Number [place] AN[place] MEDICARE MEDIC Aug 23, [id number] 855 SAMINA ADAMES IENT BCBS [place] 2019 [id number] [phone] MES JADEN SUPPL [place] ANTHEM MEDICARE MEDIC Aug 23, [id number] 888 SAMINA ADAMES [place] 2019 [id number] [phone] MES JADEN SUPPL [place] AN[employer] MEDICARE MEDIC Aug 23, [id number] 800 SAMINA ADAMES [place] 2019 [id number] [phone] [place] Aug 23, [id number] 800 SAMINA ADAMES TIENT SUPP[place]MEN ARE 2019 [id number] [phone] MES JADEN SUPPL EMEMT BL[employer] CROSS RETIREE IST30 De
--- OUTSIDE RECORDS SUMMARY | 2022-02-13 11:58 | XMS_ITS | Encounter Summary ---
:1940 Author Organization [facility] Address [address] [place] [address] Care Team Providers Name Role Phone MARU [...] Number [place] AN[employer]M MEDICARE MEDIC Aug 23, [id number] 855 SAMINA ADAMES IENT BCBS [place] 2020 [id number] [phone] MES JADEN SUPPL EMEMT ANTHEM MEDICARE MEDIC Aug 23, [id number] 888 SAMINA ADAMES [place] 2019 [id number] [phone] MES JADEN SUPPL EM[place] ANTHEM MEDICARE MEDIC Aug 23, [id number] 800 SAMINA ADAMES [place] 2019 [id number] [phone] [place] Aug 23, [id number] 800 SAMINA ADAMES TIENT SUPPLEMEN ARE 2019 [id number] [phone] MES JADEN SUPPL EMEMT BLUE CROSS RETIREE IST30
--- OUTSIDE RECORDS SUMMARY | 2022-02-13 11:58 | XMS_ITS | Encounter Summary ---
:1940 Author Organization [facility] Address [address] [place] [address] Care Team Providers Name Role Phone MARU [...] Number [place] AN[employer]M MEDICARE MEDIC Aug 23, [id number] 855 SAMINA ADAMES IENT BCBS [place] 2019 [id number] [phone] MES JADEN SUPPL EMEMT ANTHEM MEDICARE MEDIC Aug 23, [id number] 888 SAMINA ADAMES [place] 2019 [id number] [phone] MES JADEN SUPPL EM[place] ANTHEM MEDICARE MEDIC Aug 23, [id number] 800 SAMINA ADAMES [place] 2019 [id number] [phone] [place] Aug 23, [id number] 800 SAMINA ADAMES TIENT SUPPLEMEN ARE 2019 [id number] [phone] MES JADEN SUPPL EMEMT BLUE CROSS RETIREE IST3
--- OUTSIDE RECORDS SUMMARY | 2022-02-13 11:58 | XMS_ITS | Encounter Summary ---
:[address] [facility] Address [address] [place] [address] Care Team Providers Name Role Phone MARU [...] Number [place] ANTHEM MEDICARE MEDIC Aug 23, [id number] 855 SAMINA ADAMES IENT BCBS [place] 2019 [id number] [phone] MES JADEN SUPPL EMEMT ANTHEM MEDICARE MEDIC Aug 23, [id number] 888 SAMINA ADAMES [place] 2019 [id number] [phone] MES JADEN SUPPL EMEM[place] ANTHE[place] MEDICARE MEDIC Aug 23, [id number] 800 SAMINA ADAMES [place] 2019 [id number] [phone] [place] Aug 23, [id number] 800 SAMINA ADAMES TIENT SUPP[place]MEN ARE 2019 [id number] [phone] MES JADEN SUPPL EMEMT BLUE CROSS RETIREE
--- OUTSIDE RECORDS SUMMARY | 2022-02-13 11:59 | XMS_ITS | Encounter Summary ---
:[address] [facility] Address [address] [place] [address] Care Team Providers Name Role Phone MARU [...] Number [place] ANTHEM MEDICARE MEDIC Aug 23, [id number] 855 SAMINA ADAMES IENT BCBS [place] 2019 [id number] [phone] MES JADEN SUPPL EMEMT ANTHEM MEDICARE MEDIC Aug 23, [id number] 888 SAMINA ADAMES [place] 2019 [id number] [phone] MES JADEN SUPPL EM[place] ANTHE[place] MEDICARE MEDIC Aug 23, [id number] 800 SAMINA ADAMES [place] 2019 [id number] [phone] [place] Aug 23, [id number] 800 SAMINA ADAMES TIENT SUPP[place]MEN ARE 2019 [id number] [phone] MES JADEN SUPPL EMEMT BLUE CROSS RETIREE IST30
--- OUTSIDE RECORDS SUMMARY | 2022-02-13 11:59 | XMS_ITS | Encounter Summary ---
:1940 Author Organization Department [facility] Address [address] [place] [address] Care Team Providers Name Role Phone MARU [...] Number [place] ANTHEM MEDICARE MEDIC Aug 23, [id number] 855 SAMINA ADAMES IENT BCBS [place] 2019 [id number] [phone] MES JADEN SUPPL EMEMT ANTHEM MEDICARE MEDIC Aug 23, [id number] 888 SAMINA ADAMES [place] 2019 [id number] [phone] MES JADEN SUPPL EMEM[place] ANTHEM MEDICARE MEDIC Aug 23, [id number] 800 SAMINA ADAMES [place] 2019 [id number] [phone] [place] Aug 23, [id number] 800 SAMINA ADAMES TIENT SUPP[place]MEN ARE 2019 [id number] [phone] MES JADEN SUPPL EMEMT BLUE CROSS RETIREE IST30
--- OUTSIDE RECORDS SUMMARY | 2022-02-13 12:01 | XMS_ITS | Encounter Summary ---
:1940 Author Organization Department [facility] Address [address] [place] [address] Care Team Providers Name Role Phone MARU [...] Number [place] ANTHEM MEDICARE MEDIC Aug 23, [id number] 855 SAMINA ADAMES IENT BCBS [place] 2019 [id number] [phone] MES JADEN SUPPL EMEMT ANTHEM MEDICARE MEDIC Aug 23, [id number] 888 SAMINA ADAMES [place] 2019 [id number] [phone] MES JADEN SUPPL EM[place] AN[employer] MEDICARE MEDIC Aug 23, [id number] 800 SAMINA ADAMES [place] 2019 [id number] [phone] [place] Aug 23, [id number] 800 SAMINA ADAMES TIENT SUPP[place]MEN ARE 2019 [id number] [phone] MES JADEN SUPPL EMEMT BLUE CROSS RETIREE IST
--- OUTSIDE RECORDS SUMMARY | 2022-02-13 12:01 | XMS_ITS | Encounter Summary ---
:1940 Author Organization Department [facility] Address [address] [place] [address] Care Team Providers Name Role Phone MARU [...] Number [place] AN[place] MEDICARE MEDIC Aug 23, [id number] 855 SAMINA ADAMES IENT BCBS [place] 2019 [id number] [phone] MES JADEN SUPPL EMEMT ANTHEM MEDICARE MEDIC Aug 23, [id number] 888 SAMINA ADAMES [place] 2019 [id number] [phone] MES JADEN SUPPL EM[place] AN[employer] MEDICARE MEDIC Aug 23, [id number] 800 SAMINA ADAMES [place] 2019 [id number] [phone] M[place] Aug 23, [id number] 800 SAMINA ADAMES TIENT SUPPLEMEN ARE 2020 [id number] [phone] MES JADEN SUPPL EMEMT BLUE CROSS RETIREE IST
--- OUTSIDE RECORDS SUMMARY | 2022-02-13 12:02 | XMS_ITS | Encounter Summary ---
:1940 Author Organization Department [facility] Address [address] [place] [address] Care Team Providers Name Role Phone MARU [...] Number [place] AN[place] MEDICARE MEDIC Aug 23, [id number] 855 SAMINA ADAMES IENT BCBS [place] 2019 [id number] [phone] MES JADEN SUPPL EMEMT ANTHEM MEDICARE MEDIC Aug 23, [id number] 888 SAMINA ADAMES [place] 2019 [id number] [phone] MES JADEN SUPPL EMEM[place] ANTHE[place] MEDICARE MEDIC Aug 23, [id number] 800 SAMINA ADAMES [place] 2019 [id number] [phone] M[place] Aug 23, [id number] 800 SAMINA ADAMES TIENT SUPP[place]MEN ARE 2019 [id number] [phone] MES JADEN SUPPL EMEMT BLUE CROSS RETIREE IST
--- OUTSIDE RECORDS SUMMARY | 2022-02-13 12:02 | XMS_ITS | Encounter Summary ---
:1940 Author Organization Department [facility] Address [address] [place] [address] Care Team Providers Name Role Phone MARU [...] Number [place] ANTHEM MEDICARE MEDIC Aug 23, [id number] 855 SAMINA ADAMES IENT BCBS [place] 2019 [id number] [phone] MES JADEN SUPPL EMEMT ANTHEM MEDICARE MEDIC Aug 23, [id number] 888 SAMINA ADAMES [place] 2019 [id number] [phone] MES JADEN SUPPL EMEMT ANTHE[place] MEDICARE MEDIC Aug 23, [id number] 800 SAMINA ADAMES [place] 2019 [id number] [phone] M[place] Aug 23, [id number] 800 SAMINA ADAMES TIENT SUPP[place]MEN ARE 2019 [id number] [phone] MES JADEN SUPPL EMEMT BLUE CROSS RETIREE IST
--- OUTSIDE RECORDS SUMMARY | 2022-02-13 12:02 | XMS_ITS | Encounter Summary ---
:1940 Author Organization Department [facility] Address [address] [place] [address] Care Team Providers Name Role Phone MARU [...] Number [place] AN[place]M MEDICARE MEDIC Aug 23, [id number] 855 SAMINA ADAMES IENT BCBS [place] 2019 [id number] [phone] MES JADEN SUPPL EMEMT ANTHEM MEDICARE MEDIC Aug 23, [id number] 888 SAMINA ADAMES [place] 2019 [id number] [phone] MES JADEN SUPPL EM[place] AN[employer] MEDICARE MEDIC Aug 23, [id number] 800 SAMINA ADAMES [place] 2019 [id number] [phone] MES [place] Aug 23, [id number] 800 SAMINA ADAMES TIENT SUPPLEMEN ARE 2019 [id number] [phone] MES JADEN SUPPL EMEMT BLUE CROSS RETIREE IST30
[2022-02-13 12:17] VITALS: BMI 24.6
[2022-02-13] MEDS: MORPHINE SULFATE (*CRX) 2 MG/ML INJ IV PUSH (13:49)
[2022-02-13] MEDS: MORPHINE SULFATE INJ (*CRX) 50 MG in SODIUM CHLORIDE 0.9% IV 95 ML IV CONT (13:54)
--- NOTE | 2022-02-13 14:13 | PC.NURSE ---
This patient, Minh Nielsen, was transferred to [[facility]] on 02/13/22 at 1413. with [facility] Personal belongings sent with patient. Report given to [Dominique LADD]. Appropriate documentation sent with patient.
[2022-02-13 15:48] VITALS: BP 71/50; PULSE 113; RESP 12; TEMP 36.4; O2SAT 97
--- NOTE | 2022-02-13 19:41 | PC.NURSE ---
02/12/221929 informed of positive blood cultures. No new orders, patient on abx therapy
--- NOTE | 2022-02-13 19:42 | PC.NURSE ---
02/12/[address] Pina informed of lactic acid of 10.7. No new orders
--- NOTE | 2022-02-13 19:43 | PC.NURSE ---
02/13/[address] Potts informed of lactic acid of 8.8. No new orders received.
[2022-02-13 19:52] VITALS: BP 76/48; PULSE 82; RESP 12; TEMP 36.1; O2SAT 94
[2022-02-13 20:30] VITALS: O2SAT 94
[2022-02-14 08:00] VITALS: PULSE 119; RESP 4; O2SAT 97
[2022-02-14 08:22] VITALS: O2SAT 94
[2022-02-14 09:14] VITALS: BP 90/51; PULSE 119; RESP 4; TEMP 36.7; O2SAT 97
--- OUTSIDE RECORDS SUMMARY | 2022-02-14 09:20 | XMS_ITS | Encounter Summary ---
:1940 Author Organization [facility] Address [address] [place] [address] Care Team Providers Name Role Phone MARU [...] Number [place] AN[employer]M MEDICARE MEDIC Aug 23, [id number] 855 SAMINA ADAMES IENT BCBS [place] 2019 [id number] [phone] MES JADEN SUPPL EMEMT ANTHEM MEDICARE MEDIC Aug 23, [id number] 888 SAMINA ADAMES [place] 2019 [id number] [phone] MES JADEN SUPPL EMEM[place] ANTHE[place] MEDICARE MEDIC Aug 23, [id number] 800 SAMINA ADAMES [place] 2019 [id number] [phone] MES [place] Aug 23, [id number] 800 SAMINA ADAMES TIENT [place]PP[place]MEN ARE 2019 [id number] [phone] MES JADEN SUPPL EMEMT BLUE CROSS RETIREE IST30 Aug
--- OUTSIDE RECORDS SUMMARY | 2022-02-14 09:21 | XMS_ITS | Encounter Summary ---
:1940 Author Organization Department [facility] Address [address] [place] [address] Care Team Providers Name Role Phone MARU [...] Number [place] AN[place] MEDICARE MEDIC Aug 23, [id number] 855 SAMINA ADAMES IENT BCBS [place] 2019 [id number] [phone] MES JADEN SUPPL EMEMT ANTHEM MEDICARE MEDIC Aug 23, [id number] 888 SAMINA ADAMES [place] 2019 [id number] [phone] MES JADEN SUPPL EM[place] AN[employer] MEDICARE MEDIC Aug 23, [id number] 800 SAMINA ADAMES [place] 2019 [id number] [phone] MES [place] Aug 23, [id number] 800 SAMINA ADAMES TIENT SUPP[place]MEN ARE 2019 [id number] [phone] MES JADEN SUPPL EMEMT BLUE CROSS RETIREE I
--- OUTSIDE RECORDS SUMMARY | 2022-02-14 09:22 | XMS_ITS | Encounter Summary ---
:1940 Author Organization Department [facility] Address [address] [place] [address] Care Team Providers Name Role Phone MARU [...] Number [place] AN[place] MEDICARE MEDIC Aug 23, [id number] 855 SAMINA ADAMES IENT BCBS [place] 2019 [id number] [phone] MES JADEN SUPPL EMEMT ANTHEM MEDICARE MEDIC Aug 23, [id number] 888 SAMINA ADAMES [place] 2019 [id number] [phone] MES JADEN SUPPL EMEM[place] ANTHE[place] MEDICARE MEDIC Aug 23, [id number] 800 SAMINA ADAMES [place] 2019 [id number] [phone] MES [place] Aug 23, [id number] 800 SAMINA ADAMES TIENT SUPP[place]MEN ARE 2019 [id number] [phone] MES JADEN SUPPL EMEMT BLUE CROSS RETIREE IST30
--- OUTSIDE RECORDS SUMMARY | 2022-02-14 09:22 | XMS_ITS | Encounter Summary ---
:1940 Author Organization [facility] Address [address] [place] [address] Care Team Providers Name Role Phone MARU [...] Number [place] AN[place]M MEDICARE MEDIC Aug 23, [id number] 855 SAMINA ADAMES IENT BCBS [place] 2019 [id number] [phone] MES JADEN SUPPL EMEMT ANTHEM MEDICARE MEDIC Aug 23, [id number] 888 SAMINA ADAMES [place] 2019 [id number] [phone] MES JADEN SUPPL EMEM[place] ANTHE[place] MEDICARE MEDIC Aug 23, [id number] 800 SAMINA ADAMES [place] 2019 [id number] [phone] MES [place] Aug 23, [id number] 800 SAMINA ADAMES TIENT SUPPLEMEN ARE 2019 [id number] [phone] MES JADEN SUPPL EMEMT BLUE CROSS RETIREE IST30 Aug
--- OUTSIDE RECORDS SUMMARY | 2022-02-14 09:22 | XMS_ITS | Encounter Summary ---
:1940 Author Organization Department [facility] Address [address] [place] [address] Care Team Providers Name Role Phone MARU [...] Number [place] AN[place] MEDICARE MEDIC Aug 23, [id number] 855 SAMINA ADAMES IENT BCBS [place] 2019 [id number] [phone] MES JADEN SUPPL EMEMT ANTHEM MEDICARE MEDIC Aug 23, [id number] 888 SAMINA ADAMES [place] 2019 [id number] [phone] MES JADEN SUPPL EM[employer] AN[employer] MEDICARE MEDIC Aug 23, [id number] 800 SAMINA ADAMES [place] 2019 [id number] [phone] MES [place] Aug 23, [id number] 800 SAMINA ADAMES TIENT SUPPLEMEN ARE 2019 [id number] [phone] MES JADEN SUPPL EMEMT BLUE CROSS RETIREE IST30
--- OUTSIDE RECORDS SUMMARY | 2022-02-14 09:22 | XMS_ITS | Encounter Summary ---
:1940 Author Organization Department [facility] Address [address] [place] [address] Care Team Providers Name Role Phone MARU [...] Number [place] ANTHEM MEDICARE MEDIC Aug 23, [id number] 855 SAMINA ADAMES IENT BCBS [place] 2019 [id number] [phone] MES JADEN SUPPL EMEMT ANTHE[place] MEDICARE MEDIC Aug 23, [id number] 888 SAMINA ADAMES [place] 2019 [id number] [phone] MES JADEN SUPPL EMEM[place] AN[employer] MEDICARE MEDIC Aug 23, [id number] 800 SAMINA ADAMES [place] 2019 [id number] [phone] MES [place] Aug 23, [id number] 800 SAMINA ADAMES TIENT SUPPLEMEN ARE 2019 [id number] [phone] MES JADEN SUPPL EMEMT BLUE CROSS RETIREE IS
--- OUTSIDE RECORDS SUMMARY | 2022-02-14 09:22 | XMS_ITS | Encounter Summary ---
:1940 Author Organization Department [facility] Address [address] [place] [address] Care Team Providers Name Role Phone MARU [...] Number [place] ANTHEM MEDICARE MEDIC Aug 23, [id number] 855 SAMINA ADAMES IENT BCBS [place] 2019 [id number] [phone] MES JADEN SUPPL EMEMT ANTHEM MEDICARE MEDIC Aug 23, [id number] 888 SAMINA ADAMES [place] 2019 [id number] [phone] MES JADEN SUPPL EM[employer] AN[employer] MEDICARE MEDIC Aug 23, [id number] 800 SAMINA ADAMES [place] 2019 [id number] [phone] MES [place] Aug 23, [id number] 800 SAMINA ADAMES TIENT SUPPLEMEN ARE 2019 [id number] [phone] MES JADEN SUPPL EMEMT BLUE CROSS RETIREE IST30 Aug 23
[2022-02-14] MEDS: MORPHINE SULFATE INJ (*CRX) 50 MG in SODIUM CHLORIDE 0.9% IV 95 ML IV CONT (14:33)
--- NOTE | 2022-02-14 14:54 | P.PN_ITS ---
Progress Note: A&P Assessment and Plan (1) Sepsis: Code(s): A41.9 - Sepsis, unspecified organism Status: Acute Plan Continue patient on IV morphine drip at 1 mg/hr. No NV s/sx of pain. Having 20- 30 seconds of apnea at times. Patient continues to qualify for inpatient hospice care. Additional Plan n/a Time Spent With Patient Time: 25 minutes Subjective Date/time seen: 02/14/22 14:54 Patient staring off and somewhat unresponsive but able to deny pain. Son at bedside and very tearful, having complicated grief. Review of Systems Review of Systems: ROS unobtainable: Yes unobtainable due to medical condition and unobtainable due to mental status Exam Narrative: Patient oriented to self at best. Elderly male lying in hospital bed in no acute distress. Neck without JVD Heart rate regular Abdomen soft with hypoactive bowel sounds Extremities without edema or cyanosis Musculoskeletal no gross deformity to visual inspection Neurological- cranial nerves symmetric to visual inspection Psychiatric: lethargic, oriented to person Objective Data Vital Signs Vital Signs: Vital Signs - 24 hr 02/13/22 15:48 02/13/22 19:52 02/13/22 20:30 Temperature 36.4 C 36.1 C L Pulse Rate 113 H 82 Respiratory Rate 12 12 Blood Pressure 71/50 L 76/48 L Pulse Oximetry 97 94 94 Oxygen Delivery Nasal Cannula Oxygen Flow Rate 2 02/14/22 08:22 02/14/22 09:14 02/14/22 08:00 Temperature 36.7 C Pulse Rate 119 H 119 H Respiratory Rate 4 L 4 L Blood Pressure 90/51 L Pulse Oximetry 94 97 97 Oxygen Delivery Nasal Cannula Nasal Cannula Oxygen Flow Rate 2 2 Intake/Output Intake/Output: Intake & Output 02/11/22 02/12/22 02/13/22 02/14/22 23:59 23:59 23:59 23:59 Intake Total 100 Output Total 325 150 Balance -325 -50 Meds/Results Medications: Active Medications Generic Name Dose Route Start Last Admin Trade Name Freq PRN Reason Stop Dose Admin Artificial Tears 1 drop 02/13/22 16:40 Artificial Tears Ophth Soln 15 Ml Bottle EACH EYE Q12H PRN Dry Eye(s) Bisacodyl 10 mg 02/13/22 12:09 Bisacodyl 10 Mg Suppository RECTAL QAM PRN Constipation Glycopyrrolate 0.1 mg 02/13/22 12:11 Glycopyrrolate Inj (*Sp) 0.2 Mg/Ml Vial IV PUSH Q4HR PRN Secretions Morphine Sulfate 50 mg/ Sodium 100 mls @ 2 mls/hr 02/13/22 13:00 02/14/22 14:33 Chloride IV CONT 1 mg/hr .Q24H SOY 2 mls/hr Administration 1 MG/HR Lorazepam 1 mg 02/13/22 12:03 Lorazepam Inj (*Crx) 2 Mg/Ml Vial IV PUSH Q4HR PRN Anxiety or air hunger Morphine Sulfate 2 mg 02/13/22 12:03 02/13/22 13:49 Morphine Sulfate (*Crx) 2 Mg/Ml Inj IV PUSH 2 mg Q2H PRN Administration Shortness Of Breath Prochlorperazine Edisylate 10 mg 02/13/22 12:10 Prochlorperazine Edisylate 10 Mg/2 Ml Vial IV PUSH Q6H PRN Nausea And Vomiting Quality n/a
[2022-02-14] MEDS: MORPHINE SULFATE (*CRX) 2 MG/ML INJ IV PUSH (18:05)
[2022-02-14 19:50] VITALS: PULSE 119; RESP 4; O2SAT 97
[2022-02-14 20:17] VITALS: BP 83/51; PULSE 146; RESP 4; TEMP 36.6; O2SAT 93
[2022-02-15 08:00] VITALS: BP 104/49; PULSE 123; RESP 10; TEMP 36.3; O2SAT 84; O2SAT 90
[2022-02-15] MEDS: GLYCOPYRROLATE INJ (*SP) 0.2 MG/ML VIAL 0.1 MG IV PUSH ×3 (09:12→17:21)
[2022-02-15] MEDS: MORPHINE SULFATE (*CRX) 2 MG/ML INJ IV PUSH (11:35)
[2022-02-15] MEDS: LORazepam INJ (*CRX) 2 MG/ML VIAL 1 MG IV PUSH (11:35)
--- NOTE | 2022-02-15 13:45 | P.PN_ITS ---
Progress Note: A&P Assessment and Plan (1) Sepsis: Code(s): A41.9 - Sepsis, unspecified organism Status: Acute Plan Patient continues to qualify for inpatient hospice services. Time Spent With Patient Time: 20 minutes Subjective Date/time seen: 02/15/22 15:26 Review of Systems Review of Systems: Patient is an elderly male lying in hospital bed. Non- responsive to verbal or tactile stimuli. Patient's IV morphine drip increased today as well as his PRN Ativan. Son at bedside and accepting. Exam Narrative: Elderly male lying in hospital bed in no acute distress Neck without JVD Chest bilateral breath sounds are diminished with congestion noted Heart regular rate Abdomen: Soft, non-tender, bowel sounds very diminished/absent Extremities: Mild edema noted to Bilateral upper extremities and bilateral lower extremities Musculoskeletal: No gross deformity to visual inspection Neurologic: cranial nerves symmetric to visual inspection Psychiatric: lethargic, non-responsive, oriented x 0 Objective Data Vital Signs Vital Signs: Vital Signs - 24 hr 02/14/22 19:50 02/14/22 20:17 02/15/22 08:00 Temperature 36.6 C 36.3 C L Pulse Rate 119 H 146 H 123 H Respiratory Rate 4 L 4 L 10 L Blood Pressure 83/51 L 104/49 L Pulse Oximetry 97 93 84 L Oxygen Delivery Nasal Cannula Oxygen Flow Rate 2 02/15/22 08:00 02/15/22 14:35 Temperature Pulse Rate 123 H Respiratory Rate 10 L Blood Pressure Pulse Oximetry 90 96 Oxygen Delivery Nasal Cannula Nasal Cannula Oxygen Flow Rate 4 2 Intake/Output Intake/Output: Intake & Output 02/12/22 02/13/22 02/14/22 02/15/22 23:59 23:59 23:59 23:59 Intake Total 100 52 Output Total 325 450 300 Balance -325 -350 -248 Meds/Results Medications: Active Medications Generic Name Dose Route Start Last Admin Trade Name Freq PRN Reason Stop Dose Admin Artificial Tears 1 drop 02/13/22 16:40 Artificial Tears Ophth Soln 15 Ml Bottle EACH EYE Q12H PRN Dry Eye(s) Bisacodyl 10 mg 02/13/22 12:09 Bisacodyl 10 Mg Suppository RECTAL QAM PRN Constipation Glycopyrrolate 0.1 mg 02/13/22 12:11 02/15/22 13:37 Glycopyrrolate Inj (*Sp) 0.2 Mg/Ml Vial IV PUSH 0.1 mg Q4HR PRN Administration Secretions Morphine Sulfate 50 mg/ Sodium 100 mls @ 4 mls/hr 02/13/22 13:00 02/15/22 13:58 Chloride IV CONT 2 mg/hr .Q24H SOY 4 mls/hr Administration 2 MG/HR Lorazepam 2 mg 02/15/22 13:53 Lorazepam Inj (*Crx) 2 Mg/Ml Vial IV PUSH Q4HR PRN Anxiety or air hunger Morphine Sulfate 2 mg 02/13/22 12:03 02/15/22 11:35 Morphine Sulfate (*Crx) 2 Mg/Ml Inj IV PUSH 2 mg Q2H PRN Administration Shortness Of Breath Prochlorperazine Edisylate 10 mg 02/13/22 12:10 Prochlorperazine Edisylate 10 Mg/2 Ml Vial IV PUSH Q6H PRN Nausea And Vomiting
[2022-02-15] MEDS: MORPHINE SULFATE INJ (*CRX) 50 MG in SODIUM CHLORIDE 0.9% IV 95 ML IV CONT (13:58)
--- NOTE | 2022-02-15 14:11 | PC.NURSE ---
Catherine Pyle INTELLECTUAL PROPERTY COUNSEL [employer] in to assess pt this shift, changed morphine to 2mg/hr or 4ml/hr r/t sob and air hunger. prn ativan increased to 2 mg q4h prn for air hunger. Morphine bag changed with new tubing as well.
[2022-02-15 14:35] VITALS: O2SAT 96
[2022-02-15] MEDS: LORazepam INJ (*CRX) 2 MG/ML VIAL IV PUSH (16:52)
[2022-02-15 21:06] VITALS: O2SAT 94
--- NOTE | 2022-02-16 00:53 | PC.NURSE ---
0030 No pulse, no respirations, pupils fixed and dilated . Charge nurse Keagan Glez, pronounced .
--- NOTE | 2022-02-16 10:24 | PM.DDS ---
Discharge Summary Date and Time Date of : 02/16/22 Time of : 00:30 Provider Pronounced By: Janel Glez RN Probable Cause of Probable Cause of : Sepsis Summary Hospital Course: The 81 y/o male arrived to the ER on 02/10/2022 for generalized weakness, altered mental status, and vomiting. Pt was vomiting and weak so pt's son brought him to the ER. The patient was confused on the arrival to the ER, the CT brain showed no acute findings. The patient was admitted to the medical floor on 02/11/2022. 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 Pt at this time was alert and oriented to self and place. GI decided no acute interventions were needed for the PVT. The patient became hypotensive when his bp dropped to 66/53 with hypoglycemia. He was then moved to the ICU. He developed positive blood cultures consistent with severe sepsis with shock and septicemia. White count has jumped to 33K and had a metabolic acidosis related to lactic acid of 10.? Platelet count continues to drop to 34K.?Blood culture positive (2of2) with gram negative bacilli; Urine cultures pending.? There is a concern for bowel ischemia/infarction causing the septic shock, septicemia and lactic acidosis. He was on albumin.? He required norepinephrine and vasopressin. He was also treated with broad-spectrum IV antibiotics with cefepime and vancomycin.?Hospice was discussed with the family and they agreed to sign onto hospice services. The patient was admitted to [facility] on 02/13/2022. Routine medications were discontinued and comfort medications put in place. ?The patient was seen on 02/14/2022 by Catherine Pyle NP from [facility]. The patient was kept on IV morphine drip at 1 mg/hr. No NV s/sx of pain. Having 20-30 seconds of apnea at times. Patient continues to qualify for inpatient hospice care. The patient was seen by Catherine Pyle NP from [facility] on 02/15/2022. The patients continuous morphine gtt was increased to 2 mg/hr. The patient's IV push Ativan was increased to 2 mg q4h prn. He was non-responsive to verbal or tactile stimuli. Son was at bedside and accepting. On 02/16/2022 at 0030 the patient and was prounounced by Janel Glez RN. Additional Data Confirmation of as documented by pronouncing clinician: Pupillary Reflex, Palpable Pulses, Response to Stimuli, Heart Tones and Breath Sounds Name of Provider Notified: Joy/Catherine Menjivar Time Provider Notified: 00:55 Provider Requests Autopsy: No Family Requests Autopsy: No Perinatal Coordinator Notified: Yes Date [facility] Notified of : 02/16/22 Time [facility] Notified of : 01:04 Hospice patient?: Yes
== END 2022-02-16 00:30 | disposition expired | DRG 951 ==
LOC: ANH3MEDSUR 02-14 09:15 → ANHICU 02-14 09:18
PROVIDERS: Admitting Provider Internal Medicine; Visit Provider Internal Medicine
DX: Z51.5 Encounter for palliative care (principal); A41.9 Sepsis, unspecified organism
CPT/HCPCS: A9270; J2060; J2270